=== PATIENT | female | born 1990 | race Caucasian/White ===

== ENCOUNTER 2020-04-20 13:28 | Emergency (ER) | payer OTHER ==
[2020-04-20 13:39] VITALS: RESP 18; TEMP 98.2
[2020-04-20] MEDS ORDERED: KETOROLAC 30 MG/ML 1 ML VIAL IVP STA (14:16)
[2020-04-20] MEDS ORDERED: SODIUM CHLORIDE 0.9% 1,000 ML IV STA (14:16)
--- NOTE | 2020-04-20 14:29 | ED ---
General Adult HPI - General Chief complaint: Chest Pain Stated complaint: fell, had seizure 2 days ago; chest pain Time Seen by Provider: 04/20/20 13:58 Source: patient Mode of arrival: wheelchair Limitations: no limitations - History of Present Illness Initial comments: Patient is a 29-year-old female presenting to the emergency Department with complaints of overall general weakness, nausea and vomiting x 3 days. Patient states she fell down approximately 10 stairs on Thursday with loss of consciousness for approximately 1 minute. Patient states they did go to [facility] that night and had a workup and was discharged home with diagn osis of a concussion. Patient states she returned the following day and was held overnight in observation secondary to general weakness, nausea, vomiting. Patient was then discharged yesterday and returns today for same complaint of generalized weakness, continued nausea and vomiting, intermittent dizziness. Patient is also complaining of chest and belly pain. She states she is not sure if she had her chest on one of the stairs. She denies history of heart disease. She denies shortness of breath, cough. She does admit to history of cholecystectomy, appendectomy, no other abdominal surgeries. She describes her abdominal pain as generalized and soreness, no specific area that is painful. She denies being at this time secondary to IUD. She denies taking any medications. She does admit to be a chronic marijuana user. She has no further complaints. Upon arrival to the ER, her vital signs are stable. - Related Data Previous Rx's Medication Instructions Recorded Ondansetron Odt [Zofran Odt] 4 mg PO Q8HR PRN #10 tab 04/20/20 Allergies Allergy/AdvReac Type Severity Reaction Status Date / Time No Known Allergies Allergy Verified 04/20/20 13:39 Review of Systems ROS Statement: Those systems with pertinent positive or pertinent negative responses have been documented in the HPI. ROS Other: All systems not noted in ROS Statement are negative. Past Medical History Past Medical History: No Reported History History of Any Multi-Drug Resistant Organisms: None Reported Past Surgical History: Appendectomy, Section, Cholecystectomy Additional Past Surgical History / Comment(s): Right knee surgery Past Psychological History: Anxiety Smoking Status: Never smoker Past Alcohol Use History: None Reported Past Drug Use History: Marijuana General Exam - General Exam Comments Initial Comments: GENERAL: Well-appearing, well-nourished and in no acute distress. HEAD: Atraumatic, normocephalic. No signs of basilar skull fracture. EYES: Pupils equal round and reactive to light, extraocular movements intact, sclera anicteric, conjunctiva are normal. Bruising around the right eye secondary to fall. ENT: TMs normal, nares patent, oropharynx clear without exudates. Moist mucous membranes. NECK: Normal range of motion, supple without lymphadenopathy or JVD. LUNGS: Breath sounds clear to auscultation bilaterally and equal. No wheezes rales or rhonchi. HEART: Regular rate and rhythm without murmurs, rubs or gallops. Pain with palpation of the sternum and right and left chest wall. ABDOMEN: Generalized abdominal discomfort, no specific area of pain. Soft, normoactive bowel sounds. No guarding, no rebound. No masses appreciated. : Deferred EXTREMITIES: Normal range of motion, no pitting or edema. No clubbing or cyanosis. 5 out of 5 strength in upper and lower extremities. Sensation is equal and bilateral lower and upper extremities. NEUROLOGICAL: Cranial nerves II through XII grossly intact. Normal speech, normal gait. PSYCH: Normal mood, normal affect. SKIN: Warm, Dry, normal turgor, no rashes or lesions noted. Limitations: no limitations Course Vital Signs 04/20/20 04/20/20 13:34 18:27 Temperature 98.2 F 98.2 F Pulse Rate 54 L 51 L Respiratory 18 18 Rate Blood Pressure 136/69 114/71 O2 Sat by Pulse 100 99 Oximetry EKG Findings - EKG Comments: EKG Findings:: Sinus bradycardia, incomplete RBBB, no signs of acute ischemia. Ventricular rate 53, SD interval 134, QTC 410. Medical Decision Making - Medical Decision Making Patient is a 29-year-old female presenting for generalized weakness, nausea, vomiting 3 days. Vitals are stable. EKG shows no acute changes. Lab work reveals no acute findings other than dehydration. Lactic acid is 1.2. Troponin is normal. Urine shows 2+ ketones, not . Urine tox is positive for mar ijuana. Patient received fluids, Toradol, Zofran. Patient has not vomited once during ER stay. 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 She is requesting to be admitted. I discussed with patient that her findings are consistent with a concussion and the symptoms she is having are normal for this injury. Her chest pain is most likely atypical from contusion. Patient will be discharged home with Jovanni. She is in agreement with this plan of care. Return parameters were discussed with the patient and she verbalized understanding. Case discussed with Dr. Mckeon. - Lab Data Result diagrams: 04/20/20 15:17 04/20/20 15:17 Lab Results 04/20/20 04/20/20 04/20/20 Range/Units 15:17 15:17 15:17 WBC 7.8 (3.8-10.6) k/uL RBC 4.89 (3.80-5.40) m/uL Hgb 14.5 (11.4-16.0) gm/dL Hct 43.2 (34.0-46.0) % MCV 88.4 (80.0-100.0) fL MCH 29.6 (25.0-35.0) pg MCHC 33.5 (31.0-37.0) g/dL RDW 12.3 (11.5-15.5) % Plt Count 116 L (150-450) k/uL Neutrophils % 82 % Lymphocytes % 10 % Monocytes % 6 % Eosinophils % 1 % Basophils % 0 % Neutrophils # 6.4 (1.3-7.7) k/uL Lymphocytes # 0.8 L (1.0-4.8) k/uL Monocytes # 0.5 (0-1.0) k/uL Eosinophils # 0.0 (0-0.7) k/uL Basophils # 0.0 (0-0.2) k/uL PT 11.0 (9.0-12.0) sec INR 1.1 (<1.2) APTT 19.5 L (22.0-30.0) sec Sodium (137-145) mmol/L Potassium (3.5-5.1) mmol/L Chloride (98-107) mmol/L Carbon Dioxide (22-30) mmol/L Anion Gap mmol/L BUN (7-17) mg/dL Creatinine (0.52-1.04) mg/dL Est GFR (CKD-EPI)AfAm (>60 ml/min/1.73 sqM) Est GFR (CKD-EPI)NonAf (>60 ml/min/1.73 sqM) Glucose (74-99) mg/dL Plasma Lactic Acid Stanton (0.7-2.0) mmol/L Calcium (8.4-10.2) mg/dL Total Bilirubin (0.2-1.3) mg/dL AST (14-36) U/L ALT (4-34) U/L Alkaline Phosphatase (38-126) U/L Troponin I (0.000-0.034) ng/mL Total Protein (6.3-8.2) g/dL Albumin (3.5-5.0) g/dL Urine Color Light Yellow Urine Appearance Clear (Clear) Urine pH 7.5 (5.0-8.0) Ur Specific [place] 1.007 (1.001-1.035) Urine Protein Negative (Negative) Urine Glucose (UA) Negative (Negative) Urine Ketones 2+ H (Negative) Urine Blood Negative (Negative) Urine Nitrite Negative (Negative) Urine Bilirubin Negative (Negative) Urine Urobilinogen <2.0 (<2.0) mg/dL Ur Leukocyte Esterase Negative (Negative) Urine HCG, Qual (Not Detectd) Urine Opiates Screen Not Detected (NotDetected) Ur Oxycodone Screen Not Detected (NotDetected) Urine Methadone Screen Not Detected (NotDetected) Ur Propoxyphene Screen Not Detected (NotDetected) Ur Barbiturates Screen Not Detected (NotDetected) U Tricyclic Antidepress Not Detected (NotDetected) Ur Phencyclidine Scrn Not Detected (NotDetected) Ur Amphetamines Screen Not Detected (NotDetected) U Methamphetamines Scrn Not Detected (NotDetected) U Benzodiazepines Scrn Not Detected (NotDetected) Urine Cocaine Screen Not Detected (NotDetected) U Marijuana (THC) Screen Detected H (NotDetected) 04/20/20 04/20/20 04/20/20 Range/Units 15:17 15:17 15:17 WBC (3.8-10.6) k/uL RBC (3.80-5.40) m/uL Hgb (11.4-16.0) gm/dL Hct (34.0-46.0) % MCV (80.0-100.0) fL MCH (25.0-35.0) pg MCHC (31.0-37.0) g/dL RDW (11.5-15.5) % Plt Count (150-450) k/uL Neutrophils % % Lymphocytes % % Monocytes % % Eosinophils % % Basophils % % Neutrophils # (1.3-7.7) k/uL Lymphocytes # (1.0-4.8) k/uL Monocytes # (0-1.0) k/uL Eosinophils # (0-0.7) k/uL Basophils # (0-0.2) k/uL PT (9.0-12.0) sec INR (<1.2) APTT (22.0-30.0) sec Sodium 132 L (137-145) mmol/L Potassium 3.4 L (3.5-5.1) mmol/L Chloride 99 (98-107) mmol/L Carbon Dioxide 19 L (22-30) mmol/L Anion Gap 14 mmol/L BUN 10 (7-17) mg/dL Creatinine 0.41 L (0.52-1.04) mg/dL Est GFR (CKD-EPI)AfAm >90 (>60 ml/min/1.73 sqM) Est GFR (CKD-EPI)NonAf >90 (>60 ml/min/1.73 sqM) Glucose 79 (74-99) mg/dL Plasma Lactic Acid Stanton 1.2 (0.7-2.0) mmol/L Calcium 8.5 (8.4-10.2) mg/dL Total Bilirubin 3.2 H (0.2-1.3) mg/dL AST 36 (14-36) U/L ALT 58 H (4-34) U/L Alkaline Phosphatase 67 (38-126) U/L Troponin I (0.000-0.034) ng/mL Total Protein 6.8 (6.3-8.2) g/dL Albumin 3.9 (3.5-5.0) g/dL Urine Color Urine Appearance (Clear) Urine pH (5.0-8.0) Ur Specific [place] (1.001-1.035) Urine Protein (Negative) Urine Glucose (UA) (Negative) Urine Ketones (Negative) Urine Blood (Negative) Urine Nitrite (Negative) Urine Bilirubin (Negative) Urine Urobilinogen (<2.0) mg/dL Ur Leukocyte Esterase (Negative) Urine HCG, Qual Not Detected (Not Detectd) Urine Opiates Screen (NotDetected) Ur Oxycodone Screen (NotDetected) Urine Methadone Screen (NotDetected) Ur Propoxyphene Screen (NotDetected) Ur Barbiturates Screen (NotDetected) U Tricyclic Antidepress (NotDetected) Ur Phencyclidine Scrn (NotDetected) Ur Amphetamines Screen (NotDetected) U Methamphetamines Scrn (NotDetected) U Benzodiazepines Scrn (NotDetected) Urine Cocaine Screen (NotDetected) U Marijuana (THC) Screen (NotDetected) 04/20/20 Range/Units 15:17 WBC (3.8-10.6) k/uL RBC (3.80-5.40) m/uL Hgb (11.4-16.0) gm/dL Hct (34.0-46.0) % MCV (80.0-100.0) fL MCH (25.0-35.0) pg MCHC (31.0-37.0) g/dL RDW (11.5-15.5) % Plt Count (150-450) k/uL Neutrophils % % Lymphocytes % % Monocytes % % Eosinophils % % Basophils % % Neutrophils # (1.3-7.7) k/uL Lymphocytes # (1.0-4.8) k/uL Monocytes # (0-1.0) k/uL Eosinophils # (0-0.7) k/uL Basophils # (0-0.2) k/uL PT (9.0-12.0) sec INR (<1.2) APTT (22.0-30.0) sec Sodium (137-145) mmol/L Potassium (3.5-5.1) mmol/L Chloride (98-107) mmol/L Carbon Dioxide (22-30) mmol/L Anion Gap mmol/L BUN (7-17) mg/dL Creatinine (0.52-1.04) mg/dL Est GFR (CKD-EPI)AfAm (>60 ml/min/1.73 sqM) Est GFR (CKD-EPI)NonAf (>60 ml/min/1.73 sqM) Glucose (74-99) mg/dL Plasma Lactic Acid Stanton (0.7-2.0) mmol/L Calcium (8.4-10.2) mg/dL Total Bilirubin (0.2-1.3) mg/dL AST (14-36) U/L ALT (4-34) U/L Alkaline Phosphatase (38-126) U/L Troponin I <0.012 (0.000-0.034) ng/mL Total Protein (6.3-8.2) g/dL Albumin (3.5-5.0) g/dL Urine Color Urine Appearance (Clear) Urine pH (5.0-8.0) Ur Specific [place] (1.001-1.035) Urine Protein (Negative) Urine Glucose (UA) (Negative) Urine Ketones (Negative) Urine Blood (Negative) Urine Nitrite (Negative) Urine Bilirubin (Negative) Urine Urobilinogen (<2.0) mg/dL Ur Leukocyte Esterase (Negative) Urine HCG, Qual (Not Detectd) Urine Opiates Screen (NotDetected) Ur Oxycodone Screen (NotDetected) Urine Methadone Screen (NotDetected) Ur Propoxyphene Screen (NotDetected) Ur Barbiturates Screen (NotDetected) U Tricyclic Antidepress (NotDetected) Ur Phencyclidine Scrn (NotDetected) Ur Amphetamines Screen (NotDetected) U Methamphetamines Scrn (NotDetected) U Benzodiazepines Scrn (NotDetected) Urine Cocaine Screen (NotDetected) U Marijuana (THC) Screen (NotDetected) Disposition Clinical Impression: Concussion, Nausea & vomiting, Atypical chest pain Disposition: HOME SELF-CARE Condition: Stable Instructions (If sedation given, give patient instructions): Concussion (ED) Additional Instructions: Please return to the Emergency Department if symptoms worsen or any other concerns. Follow-up with PCP as discussed. Prescriptions: Ondansetron Odt [Zofran Odt] 4 mg PO Q8HR PRN #10 tab PRN Reason: Nausea Is patient prescribed a controlled substance at d/c from ED?: No Referrals: None,Stated [Primary Care Provider] - 1-2 days Dara Jarvis MD [STAFF PHYSICIAN] - 1-2 days José Miguel Hannon MD [STAFF PHYSICIAN] - 1-2 days
[2020-04-20 15:31] LABS: Basophils % (A) 0 %; Eosinophils % (A) 1 %; HCT 43.2 % (34.0-46.0); HGB 14.5 gm/dL (11.4-16.0); Lymphocytes # (A) 0.8 k/uL (1.0-4.8); Lymphocytes % (A) 10 %; MCH 29.6 pg (25.0-35.0); MCHC 33.5 g/dL (31.0-37.0); MCV 88.4 fL (80.0-100.0); Monocytes # (A) 0.5 k/uL (0-1.0); Monocytes % (A) 6 %; Neutrophils # (A) 6.4 k/uL (1.3-7.7); Neutrophils % (A) 82 %; Platelet Count 116 k/uL (150-450); RBC 4.89 m/uL (3.80-5.40); RDW 12.3 % (11.5-15.5); WBC 7.8 k/uL (3.8-10.6)
[2020-04-20 15:35] LABS: Appearance,Urine Clear (Clear); Bilirubin,Urine Negative (Negative); Blood,Urine Negative (Negative); Color,Urine Light Yellow; Glucose,Urine (UA) Negative (Negative); Ketones,Urine 2+ (Negative); Leukocyte Esterase,Urine Negative (Negative); Nitrite,Urine Negative (Negative); PH, Urine 7.5 (5.0-8.0); Protein,Urine Negative (Negative); Specific Gravity,Urine 1.007 (1.001-1.035); Urobilinogen,Urine <2.0 mg/dL (<2.0)
[2020-04-20 15:43] LABS: ALT 58 U/L (4-34); AST 36 U/L (14-36); African American GFR (CKD) >90 (>60 ml/min/1.73 sqM); Albumin 3.9 g/dL (3.5-5.0); Alkaline Phosphatase 67 U/L (38-126); Anion Gap 14 mmol/L; Blood Urea Nitrogen 10 mg/dL (7-17); Calcium 8.5 mg/dL (8.4-10.2); Carbon Dioxide 19 mmol/L (22-30); Chloride 99 mmol/L (98-107); Glucose 79 mg/dL (74-99); Non-African American GFR(CKD) >90 (>60 ml/min/1.73 sqM); Potassium 3.4 mmol/L (3.5-5.1); Sodium 132 mmol/L (137-145); Total Bilirubin 3.2 mg/dL (0.2-1.3); Total Protein 6.8 g/dL (6.3-8.2)
[2020-04-20 15:51] LABS: Amphetamine Screen,Urine Not Detected (NotDetected); Barbiturate Screen,Urine Not Detected (NotDetected); Benzodiazepines Screen,Urine Not Detected (NotDetected); Cocaine Screen,Urine Not Detected (NotDetected); Methadone Screen, Urine Not Detected (NotDetected); Opiate Screen,Urine Not Detected (NotDetected); Oxycodone Screen, Urine Not Detected (NotDetected); Phencyclidine Screen,Urine Not Detected (NotDetected); Tricyclic Antidepressant,Urine Not Detected (NotDetected); Urn Cannabinoid Scrn Detected (NotDetected)
[2020-04-20 15:52] LABS: INR 1.1 (<1.2)
[2020-04-20 16:06] LABS: Partial Thromboplastin Time 19.5 sec (22.0-30.0)
--- NOTE | 2020-04-20 16:26 | CT ---
EXAMINATION TYPE: CT brain wo con DATE OF EXAM: 04/20/2020 COMPARISON: None HISTORY: 29-year-old female fell hitting head, dizziness, hx of seizures TECHNIQUE: Examination was done in axial plane without intravenous contrast. Coronal and sagittal r econstructions performed. CT DLP: 1066.4 mGycm Automated exposure control for dose reduction was used. FINDINGS: There is no evidence of acute intracranial hemorrhage, acute ischemic changes, mass, mass-effect, or extra-axial fluid collection. There is no effacement of cerebral sulci or basal subarachnoid cister ns. There is no hydrocephalus. There is no midline shift. Becker-white matter distinction is preserv ed. Paranasal sinuses and mastoid air cells are well pneumatized. The visualized orbits and globes are in tact. IMPRESSION: No acute intracranial abnormality seen.
--- NOTE | 2020-04-20 16:27 | XR ---
EXAMINATION TYPE: XR chest 2V DATE OF EXAM: 04/20/2020 COMPARISON: None HISTORY: 29-year-old female chest pain after fall TECHNIQUE: AP and lateral views FINDINGS: The cardiomediastinal silhouette, aorta, and pulmonary vasculature are within normal limits. Lungs an d pleural spaces are clear. IMPRESSION: No acute cardiopulmonary process.
[2020-04-20] MEDS ORDERED: ONDANSETRON 4 MG ODT STARTER PACK 2 TAB BTL PO STA (18:17)
[2020-04-20 18:29] VITALS: BP 114/71; PULSE 51
== END 2020-04-20 18:34 | disposition home or self-care (01) ==
LOC: EC 13:28
DX: S06.0X9A Concussion with loss of consciousness of unspecified duration, initial encounter (principal); R07.89 Other chest pain; R11.2 Nausea with vomiting, unspecified; S05.11XA Contusion of eyeball and orbital tissues, right eye, initial encounter; W10.9XXA Fall (on) (from) unspecified stairs and steps, initial encounter
CPT/HCPCS: 36415; 93005; 80053; 83605; 84484; 85025; 85610; 85730; 81003; 81025; 80306; 71046; 70450; 99285; 96374; 96361 ×2; J1885; S0119

== ENCOUNTER 2020-07-17 15:56 | Inpatient (IN) | payer OTHER ==
[2020-07-17] MEDS ORDERED: ONDANSETRON 4 MG/2 ML VIAL IVP STA (16:33)
[2020-07-17] MEDS ORDERED: SODIUM CHLORIDE 0.9% 500 ML 500 ML IV STA (16:33)
[2020-07-17] MEDS ORDERED: PANTOPRAZOLE 40 MG/10 ML VIAL IVP STA (16:33)
[2020-07-17] MEDS ORDERED: SODIUM CHLORIDE 0.9% 1,000 ML IV STA ×3 (16:33→18:11)
[2020-07-17] MEDS ORDERED: MORPHINE SULFATE 4 MG/ML SYRINGE IV STA (16:33)
--- NOTE | 2020-07-17 16:56 | ED ---
Nausea/Vomiting/Diarrhea HPI - General Chief complaint: Nausea/Vomiting/Diarrhea Stated complaint: vomiting Time Seen by Provider: 07/17/20 16:02 Source: patient, RN notes reviewed, old records reviewed Mode of arrival: wheelchair Limitations: no limitations - History of Present Illness Initial comments: This is a 29-year-old female DF for evaluation of significant nausea vomiting after sexual intercourse today. Patient is having some abdominal pain states she has ovarian cyst patient also has some severe nausea and vomiting persistent nausea vomiting with recent history of gallbladder surgery 2 months ago done here at this hospital. No fevers. Otherwise patient been feeling well unable to tolerate anything orally since this event happened MD complaint: nausea, vomiting, abdominal pain -: hour(s) Description of Vomiting: watery, bilious Location: diffuse Radiation: none Severity: severe Severity scale (1-10): 8 Quality: cramping, aching Consistency: constant Improves with: none Worsens with: none, eating Context: history of abdominal surgery Associated Symptoms: myalgias, loss of appetite, nausea/vomiting, weakness - Related Data Home Medications Medication Instructions Recorded Confirmed No Known Home Medications 07/17/20 07/17/20 Allergies Allergy/AdvReac Type Severity Reaction Status Date / Time No Known Allergies Allergy Verified 07/17/20 12:54 Review of Systems ROS Statement: Those systems with pertinent positive or pertinent negative responses have been documented in the HPI. ROS Other: All systems not noted in ROS Statement are negative. Past Medical History Past Medical History: Osteoarthritis (OA) History of Any Multi-Drug Resistant Organisms: None Reported Past Surgical History: Appendectomy, Section, Cholecystectomy, Orthopedic Surgery Additional Past Surgical History / Comment(s): Right knee surgery. Past Anesthesia/Blood Transfusion Reactions: No Reported Reaction Past Psychological History: No Psychological Hx Reported Smoking Status: Former smoker Past Alcohol Use History: Occasional Past Drug Use History: Marijuana - Past Family History Mother Family Medical History: No Reported History General Exam Limitations: no limitations General appearance: alert, in no apparent distress Head exam: Present: atraumatic, normocephalic, normal inspection Eye exam: Present: normal appearance, PERRL, EOMI. Absent: scleral icterus, conjunctival injection, periorbital swelling ENT exam: Present: normal exam, mucous membranes moist Neck exam: Present: normal inspection. Absent: tenderness, meningismus, lymphadenopathy Respiratory exam: Present: normal lung sounds bilaterally. Absent: respiratory distress, wheezes, rales, rhonchi, stridor Cardiovascular Exam: Present: regular rate, normal rhythm, normal heart sounds. Absent: systolic murmur, diastolic murmur, rubs, gallop, clicks GI/Abdominal exam: Present: soft, normal bowel sounds. Absent: distended, tenderness, guarding, rebound, rigid Extremities exam: Present: normal inspection, full ROM, normal capillary refill. Absent: tenderness, pedal edema, joint swelling, calf tenderness Back exam: Present: normal inspection Neurological exam: Present: alert, oriented X3, CN II-XII intact Psychiatric exam: Present: normal affect, normal mood Skin exam: Present: warm, dry, intact, normal color. Absent: rash Course Vital Signs 07/17/20 07/17/20 15:57 18:12 Temperature 98.2 F Pulse Rate 52 L 47 L Respiratory 18 16 Rate Blood Pressure 135/53 135/95 O2 Sat by Pulse 99 99 Oximetry Medical Decision Making - Medical Decision Making 29 female to the ER with nonspecific nausea vomiting likely gastroenteritis patient is able tolerate on take currently and can be discharged - Lab Data Result diagrams: 07/17/20 16:37 07/17/20 16:37 Lab Results 07/17/20 07/17/20 07/17/20 Range/Units 16:37 16:37 16:37 WBC 14.9 H (3.8-10.6) k/uL RBC 5.09 (3.80-5.40) m/uL Hgb 15.3 (11.4-16.0) gm/dL Hct 46.0 (34.0-46.0) % MCV 90.3 (80.0-100.0) fL MCH 30.0 (25.0-35.0) pg MCHC 33.2 (31.0-37.0) g/dL RDW 13.0 (11.5-15.5) % Plt Count 147 L (150-450) k/uL Neutrophils % 95 % Lymphocytes % 3 % Monocytes % 2 % Eosinophils % 0 % Basophils % 0 % Neutrophils # 14.1 H (1.3-7.7) k/uL Lymphocytes # 0.4 L (1.0-4.8) k/uL Monocytes # 0.3 (0-1.0) k/uL Eosinophils # 0.0 (0-0.7) k/uL Basophils # 0.0 (0-0.2) k/uL Sodium 135 L (137-145) mmol/L Potassium 3.9 (3.5-5.1) mmol/L Chloride 103 (98-107) mmol/L Carbon Dioxide 19 L (22-30) mmol/L Anion Gap 13 mmol/L BUN 20 H (7-17) mg/dL Creatinine 0.54 (0.52-1.04) mg/dL Est GFR (CKD-EPI)AfAm >90 (>60 ml/min/1.73 sqM) Est GFR (CKD-EPI)NonAf >90 (>60 ml/min/1.73 sqM) Glucose 124 H (74-99) mg/dL Plasma Lactic Acid Stanton (0.7-2.0) mmol/L Calcium 9.7 (8.4-10.2) mg/dL Total Bilirubin 5.0 H (0.2-1.3) mg/dL AST 24 (14-36) U/L ALT 19 (4-34) U/L Alkaline Phosphatase 91 (38-126) U/L Total Protein 7.7 (6.3-8.2) g/dL Albumin 4.8 (3.5-5.0) g/dL Amylase 40 (30-110) U/L Lipase 15 L (23-300) U/L Urine Color Yellow Urine Appearance Clear (Clear) Urine pH 7.0 (5.0-8.0) Ur Specific [place] 1.032 (1.001-1.035) Urine Protein 1+ H (Negative) Urine Glucose (UA) Negative (Negative) Urine Ketones 4+ H (Negative) Urine Blood Small H (Negative) Urine Nitrite Negative (Negative) Urine Bilirubin Negative (Negative) Urine Urobilinogen <2.0 (<2.0) mg/dL Ur Leukocyte Esterase Negative (Negative) Urine RBC 6 H (0-5) /hpf Urine WBC 2 (0-5) /hpf Ur Squamous Epith Cells 4 (0-4) /hpf Hyaline Casts 1 (0-2) /lpf Urine Mucus Few H (None) /hpf Urine HCG, Qual (Not Detectd) Serum Alcohol <10 mg/dL 07/17/20 07/17/20 Range/Units 16:37 16:37 WBC (3.8-10.6) k/uL RBC (3.80-5.40) m/uL Hgb (11.4-16.0) gm/dL Hct (34.0-46.0) % MCV (80.0-100.0) fL MCH (25.0-35.0) pg MCHC (31.0-37.0) g/dL RDW (11.5-15.5) % Plt Count (150-450) k/uL Neutrophils % % Lymphocytes % % Monocytes % % Eosinophils % % Basophils % % Neutrophils # (1.3-7.7) k/uL Lymphocytes # (1.0-4.8) k/uL Monocytes # (0-1.0) k/uL Eosinophils # (0-0.7) k/uL Basophils # (0-0.2) k/uL Sodium (137-145) mmol/L Potassium (3.5-5.1) mmol/L Chloride (98-107) mmol/L Carbon Dioxide (22-30) mmol/L Anion Gap mmol/L BUN (7-17) mg/dL Creatinine (0.52-1.04) mg/dL Est GFR (CKD-EPI)AfAm (>60 ml/min/1.73 sqM) Est GFR (CKD-EPI)NonAf (>60 ml/min/1.73 sqM) Glucose (74-99) mg/dL Plasma Lactic Acid Stanton 2.8 H* (0.7-2.0) mmol/L Calcium (8.4-10.2) mg/dL Total Bilirubin (0.2-1.3) mg/dL AST (14-36) U/L ALT (4-34) U/L Alkaline Phosphatase (38-126) U/L Total Protein (6.3-8.2) g/dL Albumin (3.5-5.0) g/dL Amylase (30-110) U/L Lipase (23-300) U/L Urine Color Urine Appearance (Clear) Urine pH (5.0-8.0) Ur Specific [place] (1.001-1.035) Urine Protein (Negative) Urine Glucose (UA) (Negative) Urine Ketones (Negative) Urine Blood (Negative) Urine Nitrite (Negative) Urine Bilirubin (Negative) Urine Urobilinogen (<2.0) mg/dL Ur Leukocyte Esterase (Negative) Urine RBC (0-5) /hpf Urine WBC (0-5) /hpf Ur Squamous Epith Cells (0-4) /hpf Hyaline Casts (0-2) /lpf Urine Mucus (None) /hpf Urine HCG, Qual Not Detected (Not Detectd) Serum Alcohol mg/dL - Radiology Data Radiology results: report reviewed (CT abdomen and pelvis is negative for significant acute disease), image reviewed Disposition Clinical Impression: Dehydration, Gastroenteritis, Nausea & vomiting Disposition: HOME SELF-CARE Instructions (If sedation given, give patient instructions): Acute Nausea and Vomiting (ED) Is patient prescribed a controlled substance at d/c from ED?: No Referrals: Dara Jarvis MD [Primary Care Provider] - 1-2 days
[2020-07-17 17:15] LABS: Basophils % (A) 0 %; Eosinophils % (A) 0 %; HGB 15.3 gm/dL (11.4-16.0); Lymphocytes # (A) 0.4 k/uL (1.0-4.8); Lymphocytes % (A) 3 %; MCHC 33.2 g/dL (31.0-37.0); MCV 90.3 fL (80.0-100.0); Mean Platelet Volume 11.2; Monocytes # (A) 0.3 k/uL (0-1.0); Monocytes % (A) 2 %; Neutrophils # (A) 14.1 k/uL (1.3-7.7); Neutrophils % (A) 95 %; Platelet Count 147 k/uL (150-450); RBC 5.09 m/uL (3.80-5.40); WBC 14.9 k/uL (3.8-10.6)
[2020-07-17 17:22] LABS: Appearance,Urine Clear (Clear); Bilirubin,Urine Negative (Negative); Blood,Urine Small (Negative); Color,Urine Yellow; Glucose,Urine (UA) Negative (Negative); Hyaline Casts,Urine 1 /lpf (0-2); Ketones,Urine 4+ (Negative); Leukocyte Esterase,Urine Negative (Negative); Mucus,Urine Few /hpf; Nitrite,Urine Negative (Negative); Protein,Urine 1+ (Negative); RBC,Urine 6 /hpf (0-5); Specific Gravity,Urine 1.032 (1.001-1.035); Squamous Epithelial Cell,Urine 4 /hpf (0-4); Urobilinogen,Urine <2.0 mg/dL (<2.0); WBC,Urine 2 /hpf (0-5)
[2020-07-17 17:48] LABS: ALT 19 U/L (4-34); AST 24 U/L (14-36); African American GFR (CKD) >90 (>60 ml/min/1.73 sqM); Albumin 4.8 g/dL (3.5-5.0); Alcohol <10 mg/dL; Alkaline Phosphatase 91 U/L (38-126); Amylase 40 U/L (30-110); Anion Gap 13 mmol/L; Blood Urea Nitrogen 20 mg/dL (7-17); Calcium 9.7 mg/dL (8.4-10.2); Carbon Dioxide 19 mmol/L (22-30); Chloride 103 mmol/L (98-107); Glucose 124 mg/dL (74-99); Non-African American GFR(CKD) >90 (>60 ml/min/1.73 sqM); Potassium 3.9 mmol/L (3.5-5.1); Sodium 135 mmol/L (137-145); Total Protein 7.7 g/dL (6.3-8.2)
[2020-07-17] MEDS ORDERED: LORazepam 2 MG/ML INJ IV STA (18:10)
--- NOTE | 2020-07-17 18:13 | CT ---
EXAMINATION TYPE: CT abdomen pelvis w con DATE OF EXAM: 07/17/2020 COMPARISON: None HISTORY: abdominal pain, nausea, vomiting CT DLP: 541.9 mGycm CONTRAST: CT scan of the abdomen and pelvis is performed without Oral Contrast and with IV Contrast, patient in jected with 100 mL of Isovue 300. FINDINGS: LUNG BASES-: No visible nodule. No infiltrate. LIVER/GB: The gallbladder is surgically absent. No space occupying hepatic lesion. Biliary tree is of normal caliber. PANCREAS: No inflammation. No distinct mass. SPLEEN: No splenic enlargement. No lesion seen. ADRENALS: No nodule. No thickening. KIDNEYS/BLADDER: No hydronephrosis. No nephrolithiasis. No distinct renal mass. Urinary bladder g rossly unremarkable. BOWEL: There is wall thickening involving the small bowel as well as the colon. Findings are felt to reflect enterocolitis. Small amount of free fluid in the cul-de-sac. No free air. Appendectomy change s noted. GENITAL ORGANS: IUD is in place. LYMPH NODES: No greater than 1cm abdominal or pelvic lymph nodes are appreciated. AORTA: No significant abnormality. OSSEOUS STRUCTURES: No significant abnormality is seen. OTHER: No significant additional abnormality is seen. IMPRESSION: 1. There is wall thickening involving the small bowel as well as the colon. Findings are felt to refl ect enterocolitis.
[2020-07-17] MEDS ORDERED: ONDANSETRON 4 MG ODT STARTER PACK 2 TAB BTL PO STA (19:20)
[2020-07-17] MEDS ORDERED: SODIUM CHLORIDE 0.9% 1,000 ML IV ONE (19:24)
[2020-07-17] MEDS ORDERED: METOCLOPRAMIDE 5 MG/ML 2 ML VIAL IVP STA (19:24)
[2020-07-17] MEDS ORDERED: DICYCLOMINE 10 MG/ML 2 ML AMP IM STA (19:24)
[2020-07-17] MEDS ORDERED: ONDANSETRON 4 MG/2 ML VIAL IVP PRN (19:24)
[2020-07-17] MEDS ORDERED: diphenhydrAMINE 50 MG/ML 1 ML VIAL IVP STA (19:24)
[2020-07-17] MEDS ORDERED: diphenhydrAMINE 50 MG/ML 1 ML VIAL IVP PRN (19:24)
--- NOTE | 2020-07-17 19:24 | ED ---
Medical Decision Making - Medical Decision Making 29 female DF for evaluation and attempt to leave emergency room patient is consistently vomiting not feeling well will be admitted for observation symptom management - Lab Data Result diagrams: 07/17/20 16:37 07/17/20 16:37 Lab Results 07/17/20 07/17/20 07/17/20 Range/Units 16:37 16:37 16:37 WBC 14.9 H (3.8-10.6) k/uL RBC 5.09 (3.80-5.40) m/uL Hgb 15.3 (11.4-16.0) gm/dL Hct 46.0 (34.0-46.0) % MCV 90.3 (80.0-100.0) fL MCH 30.0 (25.0-35.0) pg MCHC 33.2 (31.0-37.0) g/dL RDW 13.0 (11.5-15.5) % Plt Count 147 L (150-450) k/uL Neutrophils % 95 % Lymphocytes % 3 % Monocytes % 2 % Eosinophils % 0 % Basophils % 0 % Neutrophils # 14.1 H (1.3-7.7) k/uL Lymphocytes # 0.4 L (1.0-4.8) k/uL Monocytes # 0.3 (0-1.0) k/uL Eosinophils # 0.0 (0-0.7) k/uL Basophils # 0.0 (0-0.2) k/uL Sodium 135 L (137-145) mmol/L Potassium 3.9 (3.5-5.1) mmol/L Chloride 103 (98-107) mmol/L Carbon Dioxide 19 L (22-30) mmol/L Anion Gap 13 mmol/L BUN 20 H (7-17) mg/dL Creatinine 0.54 (0.52-1.04) mg/dL Est GFR (CKD-EPI)AfAm >90 (>60 ml/min/1.73 sqM) Est GFR (CKD-EPI)NonAf >90 (>60 ml/min/1.73 sqM) Glucose 124 H (74-99) mg/dL Plasma Lactic Acid Stanton (0.7-2.0) mmol/L Calcium 9.7 (8.4-10.2) mg/dL Total Bilirubin 5.0 H (0.2-1.3) mg/dL AST 24 (14-36) U/L ALT 19 (4-34) U/L Alkaline Phosphatase 91 (38-126) U/L Total Protein 7.7 (6.3-8.2) g/dL Albumin 4.8 (3.5-5.0) g/dL Amylase 40 (30-110) U/L Lipase 15 L (23-300) U/L Urine Color Yellow Urine Appearance Clear (Clear) Urine pH 7.0 (5.0-8.0) Ur Specific [place] 1.032 (1.001-1.035) Urine Protein 1+ H (Negative) Urine Glucose (UA) Negative (Negative) Urine Ketones 4+ H (Negative) Urine Blood Small H (Negative) Urine Nitrite Negative (Negative) Urine Bilirubin Negative (Negative) Urine Urobilinogen <2.0 (<2.0) mg/dL Ur Leukocyte Esterase Negative (Negative) Urine RBC 6 H (0-5) /hpf Urine WBC 2 (0-5) /hpf Ur Squamous Epith Cells 4 (0-4) /hpf Hyaline Casts 1 (0-2) /lpf Urine Mucus Few H (None) /hpf Urine HCG, Qual (Not Detectd) Serum Alcohol <10 mg/dL 07/17/20 07/17/20 Range/Units 16:37 16:37 WBC (3.8-10.6) k/uL RBC (3.80-5.40) m/uL Hgb (11.4-16.0) gm/dL Hct (34.0-46.0) % MCV (80.0-100.0) fL MCH (25.0-35.0) pg MCHC (31.0-37.0) g/dL RDW (11.5-15.5) % Plt Count (150-450) k/uL Neutrophils % % Lymphocytes % % Monocytes % % Eosinophils % % Basophils % % Neutrophils # (1.3-7.7) k/uL Lymphocytes # (1.0-4.8) k/uL Monocytes # (0-1.0) k/uL Eosinophils # (0-0.7) k/uL Basophils # (0-0.2) k/uL Sodium (137-145) mmol/L Potassium (3.5-5.1) mmol/L Chloride (98-107) mmol/L Carbon Dioxide (22-30) mmol/L Anion Gap mmol/L BUN (7-17) mg/dL Creatinine (0.52-1.04) mg/dL Est GFR (CKD-EPI)AfAm (>60 ml/min/1.73 sqM) Est GFR (CKD-EPI)NonAf (>60 ml/min/1.73 sqM) Glucose (74-99) mg/dL Plasma Lactic Acid Stanton 2.8 H* (0.7-2.0) mmol/L Calcium (8.4-10.2) mg/dL Total Bilirubin (0.2-1.3) mg/dL AST (14-36) U/L ALT (4-34) U/L Alkaline Phosphatase (38-126) U/L Total Protein (6.3-8.2) g/dL Albumin (3.5-5.0) g/dL Amylase (30-110) U/L Lipase (23-300) U/L Urine Color Urine Appearance (Clear) Urine pH (5.0-8.0) Ur Specific [place] (1.001-1.035) Urine Protein (Negative) Urine Glucose (UA) (Negative) Urine Ketones (Negative) Urine Blood (Negative) Urine Nitrite (Negative) Urine Bilirubin (Negative) Urine Urobilinogen (<2.0) mg/dL Ur Leukocyte Esterase (Negative) Urine RBC (0-5) /hpf Urine WBC (0-5) /hpf Ur Squamous Epith Cells (0-4) /hpf Hyaline Casts (0-2) /lpf Urine Mucus (None) /hpf Urine HCG, Qual Not Detected (Not Detectd) Serum Alcohol mg/dL Disposition Clinical Impression: Dehydration, Gastroenteritis, Nausea & vomiting Disposition: ADMITTED IP TO THIS HOSP Condition: Good Instructions (If sedation given, give patient instructions): Acute Nausea and Vomiting (ED) Is patient prescribed a controlled substance at d/c from ED?: No Referrals: Dara Jarvis MD [Primary Care Provider] - 1-2 days Procedures - [place] Protocol (Time Out) Nurse: Daniel Gonzalez
[2020-07-17] MEDS: METOCLOPRAMIDE 5 MG/ML 2 ML VIAL IVP SCH (19:34)
[2020-07-17] MEDS ORDERED: ACETAMINOPHEN TAB 325 MG TAB PO PRN (22:55)
[2020-07-17] MEDS ORDERED: LEVOFLOXACIN 500MG-D5W PMX 500 MG in DEXTROSE/WATER 1 100ML.BAG IVPB SCH (23:00)
--- NOTE | 2020-07-17 23:12 | P.HPIM ---
History of Present Illness H&P Date: 07/17/20 Chief Complaint: abd pain , nausea and vomiting 29 year old female with Gilbert syndrome patient comes in with abd pain of about 12 hours duration , started suddenly around 3 am , she was at her baseline status of health prior to that, denies any recent travel or unsanitary food or drink, denies any sick contacts, denies any other family members with similar symptoms she reports that about 1 month ago she had cholecystectomy. currently she reports a 7/10 lower abd pain, worse with movement, radiates to the hole abdomen , mainly lower abd , denies urinary symptoms or hematuria, denies back pain. but does report associated nausea and vomting bilious in color non bloody. and frequent watery diarrhea with some occasional specs of blood today. denies fever, but having chills. denies any vaginal discharge, patient is sexually active with one partner, has IUD. in the ED she was found to have elevated WBC and lactic acidosis , elevated bilirubin (no baseline, but history of gilbert syndrome) , CT of the abdomen showed colitis Review of Systems Pertinent positives as noted in HPI. All other systems were reviewed and are neg ative Past Medical History Past Medical History: Osteoarthritis (OA) Additional Past Medical History / Comment(s): [place] Syndrome History of Any Multi-Drug Resistant Organisms: None Reported Past Surgical History: Appendectomy, Section, Cholecystectomy, Orthopedic Surgery Additional Past Surgical History / Comment(s): Right knee surgery. Past Anesthesia/Blood Transfusion Reactions: No Reported Reaction Past Psychological History: No Psychological Hx Reported Smoking Status: Former smoker Past Alcohol Use History: Occasional Past Drug Use History: Marijuana - Past Family History Mother Family Medical History: No Reported History Medications and Allergies Home Medications Medication Instructions Recorded Confirmed Type No Known Home Medications 07/17/20 07/17/20 History Allergies Allergy/AdvReac Type Severity Reaction Status Date / Time No Known Allergies Allergy Verified 07/17/20 12:54 Physical Exam Vitals: Vital Signs Temp Pulse Pulse Resp BP BP Pulse Ox 07/17/20 20:39 98.1 F 52 L 18 111/63 98 07/17/20 19:37 67 16 136/80 99 07/17/20 18:12 47 L 16 135/95 99 07/17/20 15:57 98.2 F 52 L 18 135/53 99 Intake and Output 07/17/20 07/17/20 07/17/20 06:59 14:59 22:59 Other: Weight 52.163 kg Constitutional: No acute distress, conversant, pleasant Eyes: Anicteric sclerae, moist conjunctiva, Pupils equal round reactive to light ENMT: NC/AT Oropharynx clear, no erythema, or exudates Neck: Supple, FROM, no masses, or JVD No carotid bruits No thyromegaly Lungs: Clear to auscultation Clear to percussion Normal respiratory effort, no accessory muscle use Cardiovascular: Heart regular in rate and rhythm, No murmurs, gallops, or rubs No peripheral edema Abdominal: Soft diffuse to tenderness to palpation mainly lower abd, with rebound tenderness over bilateral quadrants, left>right , no guarding, or rigidity Abdomen moving with respiration sluggish bowel sounds No hepatomegaly, No splenomegaly No palpable mass No abdominal wall hernia noted Skin: Normal temperature, tone, texture, turgor No induration No subcutaneous nodules No rash, lesions No ulcers Extremities: No digital cyanosis No clubbing Pedal pulses intact and symmetrical Radial pulses intact and symmetrical No calf tenderness Psychiatric: Alert and oriented to person, place and time Appropriate affect fair judgement Neuro Muscles Strength 4/5 in all 4 extremities Sensation to light touch grossly present throughout Cranial nerves II-XII grossly intact No focal sensory deficits Lymphatics: no palpable cervical or supraclavicular , or inguinal lymph nodes Results CBC & Chem 7: 07/17/20 16:37 07/17/20 16:37 Labs: Abnormal Lab Results - Last 24 Hours (Table) 07/17/20 07/17/20 07/17/20 Range/Units 16:37 16:37 16:37 WBC 14.9 H (3.8-10.6) k/uL Plt Count 147 L (150-450) k/uL Neutrophils # 14.1 H (1.3-7.7) k/uL Lymphocytes # 0.4 L (1.0-4.8) k/uL Sodium 135 L (137-145) mmol/L Carbon Dioxide 19 L (22-30) mmol/L BUN 20 H (7-17) mg/dL Glucose 124 H (74-99) mg/dL Plasma Lactic Acid Stanton (0.7-2.0) mmol/L Total Bilirubin 5.0 H (0.2-1.3) mg/dL Lipase 15 L (23-300) U/L Urine Protein 1+ H (Negative) Urine Ketones 4+ H (Negative) Urine Blood Small H (Negative) Urine RBC 6 H (0-5) /hpf Urine Mucus Few H (None) /hpf 07/17/20 Range/Units 16:37 WBC (3.8-10.6) k/uL Plt Count (150-450) k/uL Neutrophils # (1.3-7.7) k/uL Lymphocytes # (1.0-4.8) k/uL Sodium (137-145) mmol/L Carbon Dioxide (22-30) mmol/L BUN (7-17) mg/dL Glucose (74-99) mg/dL Plasma Lactic Acid Stanton 2.8 H* (0.7-2.0) mmol/L Total Bilirubin (0.2-1.3) mg/dL Lipase (23-300) U/L Urine Protein (Negative) Urine Ketones (Negative) Urine Blood (Negative) Urine RBC (0-5) /hpf Urine Mucus (None) /hpf Assessment and Plan Assessment: acute colitis refractory nausea and vomiting lactic acidosis follow up culture check C diff check Covid 19 check inflammatory markers for prognostic evaluation of possible covid tylenol for fever empiric antibiotics with levoflox and flagyl IVF hydraiton with normal saline gen surg consult pain control with opioids Nothing by mouth chronic conditions [place] syndrome with elevated bilirubin CODE STATUS: Full code DVT prophylaxis: Heparin subcu 3 times a day Discussed with: Patient, ER, RN Anticipated length of stay more than [address]: Home A total of 75 minutes was spent on the care of this complex patient more than 50% of the time was spent in counseling and care coordination.
[2020-07-17] MEDS: HEPARIN SODIUM,PORCINE 5,000 UNIT/ML 1 ML VIAL SQ SCH (23:19)
[2020-07-17 23:45] LABS: C Reactive Protein 12.8 mg/L (<10.0)
[2020-07-17 23:53] LABS: D-Dimer 0.48 mg/L FEU (<0.60); Prothrombin Time 10.4 sec (9.0-12.0)
[2020-07-18 00:10] LABS: Partial Thromboplastin Time 19.8 sec (22.0-30.0)
[2020-07-18] MEDS: metroNIDAZOLE-NS PMX 500 MG in SALINE 1 100ML.BAG IVPB SCH ×3 (00:33→17:13)
[2020-07-18] MEDS: METOCLOPRAMIDE 5 MG/ML 2 ML VIAL IVP SCH ×3 (05:34→17:13)
[2020-07-18] MEDS: HEPARIN SODIUM,PORCINE 5,000 UNIT/ML 1 ML VIAL SQ SCH ×2 (07:36→17:12)
[2020-07-18] MEDS ORDERED: PANTOPRAZOLE 40 MG/10 ML VIAL IVP SCH (09:00)
--- NOTE | 2020-07-18 11:32 | P.GSCN ---
History of Present Illness Consult date: 07/18/20 History of present illness: CHIEF COMPLAINT: Abdominal pain with nausea and vomiting HISTORY OF PRESENT ILLNESS: This is a 29-year-old female with a known history of Gilbert's syndrome, cholecystectomy about 1 month ago and appendectomy. Patient reports around 3 AM she started having profuse vomiting and diarrhea and left- sided abdominal pain. Patient denies any recent traveling or eating on sedentary fluid or drink. She denies any sick contacts. She does reports a grandmother has a history of inflammatory bowel disease. She denies any fever, chills or sweats. This morning she reports that her pain has improved. Surgical consult was placed regarding abdominal pain. Patient was seen and examined with Dr. Whitaker PAST MEDICAL HISTORY: See list. PAST SURGICAL HISTORY: See list. MEDICATIONS: See list. ALLERGIES: See list. SOCIAL HISTORY: No illicit drug use. REVIEW OF SYSTEMS: CONSTITUTIONAL: Denies fever or chills. HEENT: Denies blurred vision, vision changes, or eye pain. Denies hemoptysis CARDIOVASCULAR: Denies chest pain or pressure. RESPIRATORY: No shortness of breath. GASTROINTESTINAL: See HPI for pertinent findings HEMATOLOGIC: Denies bleeding disorders. GENITOURINARY: Denies any blood in urine or increased urinary frequency. SKIN: Denies pruitis. Denies rash. PHYSICAL EXAM: VITAL SIGNS: Reviewed GENERAL: Well-developed in no acute distress. HEENT: No sclera icterus. Extraocular movements grossly intact. Moist buccal mucosa. Head is atraumatic, normocephalic. No nasal drainage. ABDOMEN: Soft. Nondistended. Nontender. NEUROLOGIC: Alert and oriented. Cranial nerves II through XII grossly intact. LABORATORY DATA: WBC 14.9 hemoglobin 15.3 lactic acid 2.8 down to 1.3 total bilirubin 5.0 IMAGING: Computed tomography scan per radiology there is wall thickening involving the small bowel as well as colon. Findings are felt to reflect enterocolitis ASSESSMENT: 1. Abdominal pain with nausea and vomiting secondary to enterocolitis PLAN: -Start patient on a clear liquid diet -Continue IV fluids -Continue IV antibiotics, Levaquin and Flagyl -Continue GI and DVT prophylaxis Thank you for this consultation. We will continue to follow along during hospitalization Physician Telegraphic Typewriter Operator note has been reviewed by physician. Signing provider agrees with the documented findings, assessment, and plan of care. Past Medical History Past Medical History: Osteoarthritis (OA) Additional Past Medical History / Comment(s): [place] Syndrome History of Any Multi-Drug Resistant Organisms: None Reported Past Surgical History: Appendectomy, Section, Cholecystectomy, Orthopedic Surgery Additional Past Surgical History / Comment(s): Right knee surgery. Past Anesthesia/Blood Transfusion Reactions: No Reported Reaction Past Psychological History: No Psychological Hx Reported Smoking Status: Former smoker Past Alcohol Use History: Occasional Past Drug Use History: Marijuana - Past Family History Mother Family Medical History: No Reported History Medications and Allergies Home Medications Medication Instructions Recorded Confirmed Type No Known Home Medications 07/17/20 07/17/20 History Allergies Allergy/AdvReac Type Severity Reaction Status Date / Time No Known Allergies Allergy Verified 07/17/20 12:54 Surgical - Exam Vital Signs Temp Pulse Resp BP Pulse Ox 98.2 F 52 L 18 135/53 99 07/17/20 15:57 07/17/20 15:57 07/17/20 15:57 07/17/20 15:57 07/17/20 15:57 Results - Labs 07/17/20 16:37 07/17/20 16:37 Abnormal Lab Results - Last 24 Hours (Table) 07/17/20 07/17/20 07/17/20 Range/Units 16:37 16:37 16:37 WBC 14.9 H (3.8-10.6) k/uL Plt Count 147 L (150-450) k/uL Neutrophils # 14.1 H (1.3-7.7) k/uL Lymphocytes # 0.4 L (1.0-4.8) k/uL APTT (22.0-30.0) sec Sodium 135 L (137-145) mmol/L Carbon Dioxide 19 L (22-30) mmol/L BUN 20 H (7-17) mg/dL Glucose 124 H (74-99) mg/dL Plasma Lactic Acid [place] (0.7-2.0) mmol/L Total Bilirubin 5.0 H (0.2-1.3) mg/dL C-Reactive Protein (<10.0) mg/L Lipase 15 L (23-300) U/L Procalcitonin (0.02-0.09) ng/mL Urine Protein 1+ H (Negative) Urine Ketones 4+ H (Negative) Urine Blood Small H (Negative) Urine RBC 6 H (0-5) /hpf Urine Mucus Few H (None) /hpf 07/17/20 07/17/20 07/17/20 Range/Units 16:37 20:56 23:10 WBC (3.8-10.6) k/uL Plt Count (150-450) k/uL Neutrophils # (1.3-7.7) k/uL Lymphocytes # (1.0-4.8) k/uL APTT 19.8 L (22.0-30.0) sec Sodium (137-145) mmol/L Carbon Dioxide (22-30) mmol/L BUN (7-17) mg/dL Glucose (74-99) mg/dL Plasma Lactic Acid Stanton 2.8 H* 2.3 H* (0.7-2.0) mmol/L Total Bilirubin (0.2-1.3) mg/dL C-Reactive Protein (<10.0) mg/L Lipase (23-300) U/L Procalcitonin (0.02-0.09) ng/mL Urine Protein (Negative) Urine Ketones (Negative) Urine Blood (Negative) Urine RBC (0-5) /hpf Urine Mucus (None) /hpf 07/17/20 07/17/20 Range/Units 23:10 23:10 WBC (3.8-10.6) k/uL Plt Count (150-450) k/uL Neutrophils # (1.3-7.7) k/uL Lymphocytes # (1.0-4.8) k/uL APTT (22.0-30.0) sec Sodium (137-145) mmol/L Carbon Dioxide (22-30) mmol/L BUN (7-17) mg/dL Glucose (74-99) mg/dL Plasma Lactic Acid [place] (0.7-2.0) mmol/L Total Bilirubin (0.2-1.3) mg/dL C-Reactive Protein 12.8 H (<10.0) mg/L Lipase (23-300) U/L Procalcitonin 0.12 H (0.02-0.09) ng/mL Urine Protein (Negative) Urine Ketones (Negative) Urine Blood (Negative) Urine RBC (0-5) /hpf Urine Mucus (None) /hpf Diabetes panel 07/17/20 Range/Units 16:37 Sodium 135 L (137-145) mmol/L Potassium 3.9 (3.5-5.1) mmol/L Chloride 103 (98-107) mmol/L Carbon Dioxide 19 L (22-30) mmol/L BUN 20 H (7-17) mg/dL Creatinine 0.54 (0.52-1.04) mg/dL Glucose 124 H (74-99) mg/dL Calcium 9.7 (8.4-10.2) mg/dL AST 24 (14-36) U/L ALT 19 (4-34) U/L Alkaline Phosphatase 91 (38-126) U/L Total Protein 7.7 (6.3-8.2) g/dL Albumin 4.8 (3.5-5.0) g/dL Calcium panel 07/17/20 Range/Units 16:37 Calcium 9.7 (8.4-10.2) mg/dL Albumin 4.8 (3.5-5.0) g/dL Pituitary panel 07/17/20 Range/Units 16:37 Sodium 135 L (137-145) mmol/L Potassium 3.9 (3.5-5.1) mmol/L Chloride 103 (98-107) mmol/L Carbon Dioxide 19 L (22-30) mmol/L BUN 20 H (7-17) mg/dL Creatinine 0.54 (0.52-1.04) mg/dL Glucose 124 H (74-99) mg/dL Calcium 9.7 (8.4-10.2) mg/dL Adrenal panel 07/17/20 Range/Units 16:37 Sodium 135 L (137-145) mmol/L Potassium 3.9 (3.5-5.1) mmol/L Chloride 103 (98-107) mmol/L Carbon Dioxide 19 L (22-30) mmol/L BUN 20 H (7-17) mg/dL Creatinine 0.54 (0.52-1.04) mg/dL Glucose 124 H (74-99) mg/dL Calcium 9.7 (8.4-10.2) mg/dL Total Bilirubin 5.0 H (0.2-1.3) mg/dL AST 24 (14-36) U/L ALT 19 (4-34) U/L Alkaline Phosphatase 91 (38-126) U/L Total Protein 7.7 (6.3-8.2) g/dL Albumin 4.8 (3.5-5.0) g/dL
[2020-07-18 11:48] VITALS: BP 93/57; PULSE 45; RESP 16; TEMP 98.5
[2020-07-18] MEDS: SODIUM CHLORIDE 0.9% 1,000 ML IV SCH ×2 (12:34→17:17)
--- NOTE | 2020-07-18 16:14 | P.PN ---
Subjective Progress Note Date: 07/18/20 Patient is doing well today. She denies any abdominal pain or nausea. No more diarrhea or bowel movement. Objective - Vital Signs Vital signs: Vital Signs Temp 98.5 F 07/18/20 11:47 Pulse 45 L 07/18/20 11:47 Resp 16 07/18/20 11:47 BP 93/57 07/18/20 11:47 Pulse Ox 100 07/18/20 11:47 Intake & Output 07/17/20 07/18/20 07/18/20 18:59 06:59 18:59 Intake Total 2199 830 Balance 2199 830 Weight 52.163 kg 52.163 kg Intake: Intake, IV Titration 9 830 Amount Levofloxacin 500Mg-D5w 100 Pmx 500 mg In Dextrose/ Water 1 100ml.bag @ 100 mls/hr IVPB Q24H [facility] Rx#: [id number] Sodium Chloride 0.9% 1, 800 000 ml @ 100 mls/hr IV . Q10H [facility] Rx#:[id number] Sodium Chloride 0.9% 1, 730 000 ml @ 130 mls/hr IV . Q7H42M [facility] Rx#:[id number] Sodium Chloride 0.9% 1, 200 000 ml @ 130 mls/hr IV . Q7H42M [facility] Rx#:[id number] Sodium Chloride 0.9% 1, 999 000 ml @ 999 mls/hr IV . Q1H1M [facility] Rx#:[id number] metroNIDAZOLE-NS PMX 500 100 100 mg In Saline 1 100ml.bag @ 100 mls/hr IVPB Q8HR [facility] Rx#:[id number] Oral 0 Other: # Voids 1 # Bowel Movements 0 - Exam General: The patient is awake and alert, in no distress Eye: there is normal conjunctiva bilaterally. Neck: The neck is supple, there is no JVD. Cardiovascular: Normal S1-S2, no S3-S4, no murmurs. Respiratory: Lungs clear to auscultation bilaterally Gastrointestinal: Abdomen is soft, nontender Musculoskeletal: There is no pedal edema. Neurological:. Speech is normal. Skin: Skin is warm and dry - Labs CBC & Chem 7: 07/17/20 16:37 07/17/20 16:37 Labs: Abnormal Lab Results - Last 24 Hours (Table) 08/07/17/20 07/17/20 Range/Units 16:37 16:37 16:37 WBC 14.9 H (3.8-10.6) k/uL Plt Count 147 L (150-450) k/uL Neutrophils # 14.1 H (1.3-7.7) k/uL Lymphocytes # 0.4 L (1.0-4.8) k/uL APTT (22.0-30.0) sec Sodium 135 L (137-145) mmol/L Carbon Dioxide 19 L (22-30) mmol/L BUN 20 H (7-17) mg/dL Glucose 124 H (74-99) mg/dL Plasma Lactic Acid [place] (0.7-2.0) mmol/L Total Bilirubin 5.0 H (0.2-1.3) mg/dL C-Reactive Protein (<10.0) mg/L Lipase 15 L (23-300) U/L Procalcitonin (0.02-0.09) ng/mL Urine Protein 1+ H (Negative) Urine Ketones 4+ H (Negative) Urine Blood Small H (Negative) Urine RBC 6 H (0-5) /hpf Urine Mucus Few H (None) /hpf 07/17/20 07/17/20 07/17/20 Range/Units 16:37 20:56 23:10 WBC (3.8-10.6) k/uL Plt Count (150-450) k/uL Neutrophils # (1.3-7.7) k/uL Lymphocytes # (1.0-4.8) k/uL APTT 19.8 L (22.0-30.0) sec Sodium (137-145) mmol/L Carbon Dioxide (22-30) mmol/L BUN (7-17) mg/dL Glucose (74-99) mg/dL Plasma Lactic Acid Stanton 2.8 H* 2.3 H* (0.7-2.0) mmol/L Total Bilirubin (0.2-1.3) mg/dL C-Reactive Protein (<10.0) mg/L Lipase (23-300) U/L Procalcitonin (0.02-0.09) ng/mL Urine Protein (Negative) Urine Ketones (Negative) Urine Blood (Negative) Urine RBC (0-5) /hpf Urine Mucus (None) /hpf 07/17/20 07/17/20 Range/Units 23:10 23:10 WBC (3.8-10.6) k/uL Plt Count (150-450) k/uL Neutrophils # (1.3-7.7) k/uL Lymphocytes # (1.0-4.8) k/uL APTT (22.0-30.0) sec Sodium (137-145) mmol/L Carbon Dioxide (22-30) mmol/L BUN (7-17) mg/dL Glucose (74-99) mg/dL Plasma Lactic Acid [place] (0.7-2.0) mmol/L Total Bilirubin (0.2-1.3) mg/dL C-Reactive Protein 12.8 H (<10.0) mg/L Lipase (23-300) U/L Procalcitonin 0.12 H (0.02-0.09) ng/mL Urine Protein (Negative) Urine Ketones (Negative) Urine Blood (Negative) Urine RBC (0-5) /hpf Urine Mucus (None) /hpf Assessment and Plan Assessment: This is a 29-year-old female who presented to the emergency room with abdominal pain and currently admitted to the hospital for further management of her medical problems noted below. acute colitis: Started on empiric antibiotic. This likely C. diff given her clinical picture. Diarrhea resolved. Continue IV fluid hydration. Start liquid diet and advance as tolerated. refractory nausea and vomiting: Now resolved lactic acidosis: Resolved chronic conditions [place] syndrome with elevated bilirubin Anticipate discharge home tomorrow
--- NOTE | 2020-07-19 09:51 | P.DS ---
Providers Date of admission: 07/17/20 19:28 Expected date of discharge: 07/19/20 Attending physician: Hussein Young MD Consults: 07/17/20 19:41 Consult Physician Routine Consulting Provider: Daniele Whitaker Consult Reason/Comments: Shirain Do you want consulting provider notified?: Yes Primary care physician: Dara Jarvis [facility] Course: Patient left the hospital AMA during the drop wire aligner. I did not see her prior to her departure. Below is a Summary of her presentation. For further details refer to that she physician documentation This is a 29-year-old female who presented to the emergency room with abdominal pain and currently admitted to the hospital for further management of her medical problems noted below. acute colitis: Started on empiric antibiotic. Less likely C. diff given her clinical presentation. Diarrhea resolved. Continue IV fluid hydration. Start liquid diet and advance as tolerated. refractory nausea and vomiting: Now resolved lactic acidosis: Resolved chronic conditions [place] syndrome with elevated bilirubin Patient Condition at Discharge: Good Plan - Discharge Summary New Discharge Prescriptions: No Action No Known Home Medications Discharge Medication List No Known Home Medications 07/17/20 [History] Follow up Appointment(s)/Referral(s): Dara Jarvis MD [Primary Care Provider] - 1-2 days Patient Instructions/Handouts: Acute Nausea and Vomiting (ED)
== END 2020-07-18 20:23 | disposition home or self-care (01) | DRG 392 ==
LOC: EC 15:56 → 5NMEDONC 19:28
PROVIDERS: ADMIT Internal Medicine; ATTEND Internal Medicine
DX: K52.9 Noninfective gastroenteritis and colitis, unspecified (principal); E87.2 Acidosis; E80.4 Gilbert syndrome; E86.0 Dehydration; E80.6 Other disorders of bilirubin metabolism; Z87.891 Personal history of nicotine dependence; Z90.49 Acquired absence of other specified parts of digestive tract
CPT/HCPCS: 36415; 74177; 80053; 80320; 81001; 81025; 82150; 82550; 83605; 83615; 83690; 84145; 85025; 85379; 85610; 85730; 86140; 87040; 96361; 96372; 96374; 96375; 99285

== ENCOUNTER 2020-07-23 08:10 | Day surgery (SDC) | payer OTHER ==
[2020-07-17 13:01] VITALS: BMI 19.7
[~2020-07-23 08:10] MED LIST: DEXAMETHASONE SOD PHOSPHATE 10 MG/ML 1 ML VIAL IV ONE; HYDROmorphone 0.5 MG/0.5 ML SYRINGE IVP PRN; LACTATED RINGERS 1,000 ML IV SCH; ONDANSETRON 4 MG/2 ML VIAL IVP ONE; Pre Op ABX Message 1 EACH MISC MISCELLANE ONE
[2020-07-23] MEDS ORDERED: ONDANSETRON 4 MG/2 ML VIAL ONE (08:42)
[2020-07-23] MEDS ORDERED: MIDAZOLAM 2 MG/2 ML VIAL ONE (10:02)
[2020-07-23] MEDS ORDERED: LIDOCAINE 1% INJ 10MG/ML (20 ML MDV) ONE (10:02)
[2020-07-23] MEDS ORDERED: PROPOFOL 10 MG/ML 20 ML VIAL IV ONE (10:02)
[2020-07-23] MEDS ORDERED: fentaNYL (PF) 50 MCG/ML 2 ML AMP ONE (10:02)
[2020-07-23] MEDS ORDERED: SILVER NITRATE APPLICATOR 1 EACH STICK..EA. TOPICAL ONE (10:24)
--- NOTE | 2020-07-23 10:34 | P.OP ---
Date of Procedure: 07/23/20 Preoperative Diagnosis: Retained IUD Postoperative Diagnosis: Same Procedure(s) Performed: Hysteroscopic removal of IUD Anesthesia: MAC Surgeon: Eugenia Hurst Estimated Blood Loss (ml): 2 Urine output (ml): 300 Pathology: none sent Condition: stable Disposition: PACU Indications for Procedure: This 29-year-old presented to the office for removal of IUD. Patient desires . Patient states the IUD was placed at an outside facility and strings were not visualized. She denies changes in her bleeding pattern and states an ultrasound was done in the past revealing the IUD to be within the uterus. Ultrasound on the date of her appointment with myself confirmed IUD placement within the uterus. Operative Findings: IUD within uterine cavity Description of Procedure: Patient was taken back to the operating suite where general anesthesia was obtained without difficulty by the anesthesia department. She was prepped and draped in normal sterile fashion in the dorsal lithotomy position. A red rubber catheter was then used to drain the bladder of clear yellow urine. Weighted speculum was placed in the posterior vaginal vault intralipids the cervix is visualized and grasped with a single-tooth tenaculum. Endocervical canal was then serially dilated to 15-[place]. The hysteroscope was then placed through the cervix and toward the endometrial cavity. The IUD was visualized within the endometrial cavity. Strings were noted to be just above the internal cervical os. A Ludy was then used to grasp the strings and IUD was removed difficulty. The single-tooth tenaculum was taken off of the anterior lip of the cervix. Hemostasis was appreciated, after Silver nitrate placement. Next All counts are correct 2, patient tolerated procedure well
[2020-07-23 10:38] VITALS: TEMP 97.4
[2020-07-23] MEDS ORDERED: LACTATED RINGERS 1,000 ML IV ONE (11:01)
[2020-07-23] MEDS ORDERED: ONDANSETRON 4 MG/2 ML VIAL IVP ONE (11:08)
[2020-07-23 11:30] VITALS: RESP 16
[2020-07-23] MEDS ORDERED: KETOROLAC 30 MG/ML 1 ML VIAL ONE (11:35)
[2020-07-23] MEDS ORDERED: KETOROLAC 15 MG/ML 1 ML VIAL IVP ONE (11:36)
[2020-07-23 11:55] VITALS: BP 104/57; PULSE 48
== END 2020-07-23 12:17 | disposition home or self-care (01) ==
LOC: OR 08:10
PROVIDERS: ATTEND Obstetrics & Gynecology Obstetrics
DX: Z30.432 Encounter for removal of intrauterine contraceptive device (principal); D64.9 Anemia, unspecified; F41.9 Anxiety disorder, unspecified; Z90.49 Acquired absence of other specified parts of digestive tract; Z98.891 History of uterine scar from previous surgery; Z82.49 Family history of ischemic heart disease and other diseases of the circulatory system; Z83.3 Family history of diabetes mellitus; Z83.49 Family history of other endocrine, nutritional and metabolic diseases; E80.4 Gilbert syndrome
CPT/HCPCS: 81025; 58562; J2250; J1100; J2405; J2001; J3010; J1885; J2704; J1170

== ENCOUNTER 2020-08-15 17:23 | Emergency (ER) | payer OTHER ==
[2020-08-15 17:40] VITALS: BP 156/68; PULSE 52; RESP 16; TEMP 97.9
[2020-08-15] MEDS ORDERED: KETOROLAC 15 MG/ML 1 ML VIAL IVP STA (18:36)
[2020-08-15] MEDS ORDERED: PANTOPRAZOLE 40 MG/10 ML VIAL IVP STA (18:36)
[2020-08-15] MEDS ORDERED: ONDANSETRON 4 MG/2 ML VIAL IVP STA (18:36)
[2020-08-15] MEDS ORDERED: SODIUM CHLORIDE 0.9% 1,000 ML IV STA (18:36)
--- NOTE | 2020-08-15 19:05 | ED ---
Nausea/Vomiting/Diarrhea HPI - General Chief complaint: Nausea/Vomiting/Diarrhea Stated complaint: vomiting, nausea, week revisit 3weeks Time Seen by Provider: 08/15/20 18:17 Source: patient Mode of arrival: wheelchair Limitations: no limitations - History of Present Illness Initial comments: Patient is a 29-year-old female presenting to the emergency Department with complaints of nausea, vomiting, abdominal pain has been increasing today. Patient states she was seen in this ER 3 weeks ago for same complaint and had a complete workup and then was admitted later in the day for intractable nausea and vomiting. She states she ended up leaving AMA while admitted secondary to needing to get stuff done at home and she is starting to feel better. She states she went to [facility] earlier today and did have another computed tomography scan as well as blood work which showed no acute abnormalities so they discharged her. Patient states over the last few weeks he has been nauseous every morning when she wakes up, intermittent abdominal pain. Patient states she's not had the vomiting until today. She denies any fever but is having chills. She denies being at this time secondary to control. She denies any shortness of breath, has been having regular bowel movements. She does admit history cholecystectomy, no other abdominal surgeries. She has no further complaints. Upon arrival to the ER, her vitals are stable. - Related Data Previous Rx's Medication Instructions Recorded Ketorolac [Toradol] 10 mg PO Q8HR #15 tab 08/15/20 Allergies Allergy/AdvReac Type Severity Reaction Status Date / Time No Known Allergies Allergy Verified 08/15/20 17:39 Review of Systems ROS Statement: Those systems with pertinent positive or pertinent negative responses have been documented in the HPI. ROS Other: All systems not noted in ROS Statement are negative. Past Medical History Past Medical History: Osteoarthritis (OA) Additional Past Medical History / Comment(s): [place] Syndrome History of Any Multi-Drug Resistant Organisms: None Reported Past Surgical History: Appendectomy, Section, Cholecystectomy, Orthopedic Surgery Additional Past Surgical History / Comment(s): Right knee surgery. Past Anesthesia/Blood Transfusion Reactions: No Reported Reaction Past Psychological History: No Psychological Hx Reported Smoking Status: Former smoker Past Alcohol Use History: Occasional Past Drug Use History: Marijuana - Past Family History Mother Family Medical History: No Reported History General Exam - General Exam Comments Initial Comments: GENERAL: Patient is well-developed and well-nourished. Patient is nontoxic and in no acute distress. HEAD: Atraumatic, normocephalic. EYES: Pupils equal round and reactive to light, extraocular movements intact, sclera anicteric, conjunctiva are normal. Eyelids were unremarkable. ENT: TMs normal, nares patent, oropharynx clear without exudates. Moist mucous membranes. NECK: Normal range of motion, supple without lymphadenopathy or JVD. LUNGS: Unlabored respirations. Breath sounds clear to auscultation bilaterally and equal. No wheezes rales or rhonchi. HEART: Regular rate and rhythm without murmurs, rubs or gallops. ABDOMEN: Generalized abdominal tenderness, no specific area pain. Soft, normoactive bowel sounds. No guarding, no rebound. No masses appreciated. : Deferred MUSCULOSKELETAL: Normal extremities with adequate strength and normal range of motion, no pitting or edema. No clubbing or cyanosis. NEUROLOGICAL: Patient is alert and oriented x 3. Motor and sensory are also intact. Cranial nerves II through XII grossly intact. Symmetrical smile. Normal speech, normal gait. PSYCH: Normal mood, normal affect. SKIN: Warm, Dry, normal turgor, no rashes or lesions noted. Limitations: no limitations Course Vital Signs 08/15/20 17:36 Temperature 97.9 F Pulse Rate 52 L Respiratory 16 Rate Blood Pressure 156/68 O2 Sat by Pulse 99 Oximetry Medical Decision Making - Medical Decision Making Patient is a 29-year-old female here for intermittent nausea, diffuse abdominal pain and today vomiting. She was evaluated for same complaint 3 weeks ago here and again today prior to arrival at [facility]. She's had 2 abdominal pelvic CTs over the past 3 weeks with shows no acute abnormalities, evidence of gastroenteritis. Vitals are stable. Labs are stable, liver enzymes are stable, lipase is normal. Urine today does show 4+ ketone, no evidence of infection, hCG is not detected. Patient was given fluids, Toradol and Zofran she has been resting comfortably in the ER. I did check on patient on 2 separate occasions and she was sleeping both times. The patient that her symptoms could be related gastroenteritis or stress. I did recommend following up with a GI doctor. I discussed that she is stable at this time and does not need to be admitted. Patient is in agreement with this plan of care. She will call GI for seeing in the morning. I did give send her home with a starter pack of Zofran as well as Toradol for discomfort. Return parameters were discussed with the patient she verbalized understanding. Case discussed with Dr. Rios. - Lab Data Result diagrams: 08/15/20 18:43 08/15/20 18:43 Lab Results 08/15/20 08/15/20 08/15/20 Range/Units 18:43 18:43 18:43 WBC 8.6 (3.8-10.6) k/uL RBC 4.84 (3.80-5.40) m/uL Hgb 14.3 (11.4-16.0) gm/dL Hct 43.1 (34.0-46.0) % MCV 89.0 (80.0-100.0) fL MCH 29.5 (25.0-35.0) pg MCHC 33.2 (31.0-37.0) g/dL RDW 12.5 (11.5-15.5) % Plt Count 105 L (150-450) k/uL Neutrophils % 94 % Lymphocytes % 4 % Monocytes % 2 % Eosinophils % 0 % Basophils % 0 % Neutrophils # 8.0 H (1.3-7.7) k/uL Lymphocytes # 0.3 L (1.0-4.8) k/uL Monocytes # 0.2 (0-1.0) k/uL Eosinophils # 0.0 (0-0.7) k/uL Basophils # 0.0 (0-0.2) k/uL Sodium 133 L (137-145) mmol/L Potassium 4.1 (3.5-5.1) mmol/L Chloride 102 (98-107) mmol/L Carbon Dioxide 20 L (22-30) mmol/L Anion Gap 11 mmol/L BUN 14 (7-17) mg/dL Creatinine 0.54 (0.52-1.04) mg/dL Est GFR (CKD-EPI)AfAm >90 (>60 ml/min/1.73 sqM) Est GFR (CKD-EPI)NonAf >90 (>60 ml/min/1.73 sqM) Glucose 131 H (74-99) mg/dL Calcium 9.2 (8.4-10.2) mg/dL Total Bilirubin 2.8 H (0.2-1.3) mg/dL AST 20 (14-36) U/L ALT 17 (4-34) U/L Alkaline Phosphatase 69 (38-126) U/L Total Protein 7.1 (6.3-8.2) g/dL Albumin 4.4 (3.5-5.0) g/dL Amylase 34 (30-110) U/L Lipase 33 (23-300) U/L Urine Color Yellow Urine Appearance Clear (Clear) Urine pH 6.5 (5.0-8.0) Ur Specific [place] >1.050 H (1.001-1.035) Urine Protein Trace H (Negative) Urine Glucose (UA) Negative (Negative) Urine Ketones 4+ H (Negative) Urine Blood Small H (Negative) Urine Nitrite Negative (Negative) Urine Bilirubin Negative (Negative) Urine Urobilinogen <2.0 (<2.0) mg/dL Ur Leukocyte Esterase Negative (Negative) Urine RBC 9 H (0-5) /hpf Urine WBC 1 (0-5) /hpf Ur Squamous Epith Cells 14 H (0-4) /hpf Urine Bacteria Rare H (None) /hpf Urine Mucus Rare H (None) /hpf Urine HCG, Qual (Not Detectd) 08/15/20 Range/Units 19:26 WBC (3.8-10.6) k/uL RBC (3.80-5.40) m/uL Hgb (11.4-16.0) gm/dL Hct (34.0-46.0) % MCV (80.0-100.0) fL MCH (25.0-35.0) pg MCHC (31.0-37.0) g/dL RDW (11.5-15.5) % Plt Count (150-450) k/uL Neutrophils % % Lymphocytes % % Monocytes % % Eosinophils % % Basophils % % Neutrophils # (1.3-7.7) k/uL Lymphocytes # (1.0-4.8) k/uL Monocytes # (0-1.0) k/uL Eosinophils # (0-0.7) k/uL Basophils # (0-0.2) k/uL Sodium (137-145) mmol/L Potassium (3.5-5.1) mmol/L Chloride (98-107) mmol/L Carbon Dioxide (22-30) mmol/L Anion Gap mmol/L BUN (7-17) mg/dL Creatinine (0.52-1.04) mg/dL Est GFR (CKD-EPI)AfAm (>60 ml/min/1.73 sqM) Est GFR (CKD-EPI)NonAf (>60 ml/min/1.73 sqM) Glucose (74-99) mg/dL Calcium (8.4-10.2) mg/dL Total Bilirubin (0.2-1.3) mg/dL AST (14-36) U/L ALT (4-34) U/L Alkaline Phosphatase (38-126) U/L Total Protein (6.3-8.2) g/dL Albumin (3.5-5.0) g/dL Amylase (30-110) U/L Lipase (23-300) U/L Urine Color Urine Appearance (Clear) Urine pH (5.0-8.0) Ur Specific [place] (1.001-1.035) Urine Protein (Negative) Urine Glucose (UA) (Negative) Urine Ketones (Negative) Urine Blood (Negative) Urine Nitrite (Negative) Urine Bilirubin (Negative) Urine Urobilinogen (<2.0) mg/dL Ur Leukocyte Esterase (Negative) Urine RBC (0-5) /hpf Urine WBC (0-5) /hpf Ur Squamous Epith Cells (0-4) /hpf Urine Bacteria (None) /hpf Urine Mucus (None) /hpf Urine HCG, Qual Not Detected (Not Detectd) Disposition Clinical Impression: Nausea & vomiting, Gastroenteritis Disposition: HOME SELF-CARE Condition: Stable Instructions (If sedation given, give patient instructions): Acute Nausea and Vomiting (ED) Additional Instructions: Please return to the Emergency Department if symptoms worsen or any other concerns. Use Zofran for additional nausea. May use Tylenol or Toradol for symptom relief. Follow up with GI as discussed. Prescriptions: Ketorolac [Toradol] 10 mg PO Q8HR #15 tab Is patient prescribed a controlled substance at d/c from ED?: No Referrals: Dara Jarvis MD [Primary Care Provider] - 1-2 days Phil Villalobos MD [STAFF PHYSICIAN] - 1-2 days
[2020-08-15 19:11] LABS: Basophils % (A) 0 %; Eosinophils % (A) 0 %; HCT 43.1 % (34.0-46.0); HGB 14.3 gm/dL (11.4-16.0); Lymphocytes # (A) 0.3 k/uL (1.0-4.8); Lymphocytes % (A) 4 %; MCH 29.5 pg (25.0-35.0); MCHC 33.2 g/dL (31.0-37.0); Mean Platelet Volume 11.2; Monocytes # (A) 0.2 k/uL (0-1.0); Monocytes % (A) 2 %; Neutrophils % (A) 94 %; Platelet Count 105 k/uL (150-450); RBC 4.84 m/uL (3.80-5.40); RDW 12.5 % (11.5-15.5); WBC 8.6 k/uL (3.8-10.6)
[2020-08-15 19:22] LABS: ALT 17 U/L (4-34); AST 20 U/L (14-36); African American GFR (CKD) >90 (>60 ml/min/1.73 sqM); Albumin 4.4 g/dL (3.5-5.0); Alkaline Phosphatase 69 U/L (38-126); Amylase 34 U/L (30-110); Anion Gap 11 mmol/L; Blood Urea Nitrogen 14 mg/dL (7-17); Calcium 9.2 mg/dL (8.4-10.2); Carbon Dioxide 20 mmol/L (22-30); Chloride 102 mmol/L (98-107); Glucose 131 mg/dL (74-99); Non-African American GFR(CKD) >90 (>60 ml/min/1.73 sqM); Potassium 4.1 mmol/L (3.5-5.1); Sodium 133 mmol/L (137-145); Total Bilirubin 2.8 mg/dL (0.2-1.3); Total Protein 7.1 g/dL (6.3-8.2)
[2020-08-15 19:30] LABS: Appearance,Urine Clear (Clear); Bacteria,Urine Rare /hpf; Bilirubin,Urine Negative (Negative); Blood,Urine Small (Negative); Color,Urine Yellow; Glucose,Urine (UA) Negative (Negative); Ketones,Urine 4+ (Negative); Leukocyte Esterase,Urine Negative (Negative); Mucus,Urine Rare /hpf; Nitrite,Urine Negative (Negative); PH, Urine 6.5 (5.0-8.0); Protein,Urine Trace (Negative); RBC,Urine 9 /hpf (0-5); Squamous Epithelial Cell,Urine 14 /hpf (0-4); Urobilinogen,Urine <2.0 mg/dL (<2.0); WBC,Urine 1 /hpf (0-5)
[2020-08-15 19:34] LABS: Specific Gravity,Urine >1.050 (1.001-1.035)
[2020-08-15] MEDS ORDERED: ONDANSETRON 4 MG ODT STARTER PACK 2 TAB BTL PO STA (21:36)
== END 2020-08-15 21:44 | disposition home or self-care (01) ==
LOC: EC 17:23
DX: K52.9 Noninfective gastroenteritis and colitis, unspecified (principal); Z90.49 Acquired absence of other specified parts of digestive tract; Z90.89 Acquired absence of other organs; Z87.891 Personal history of nicotine dependence
CPT/HCPCS: 36415; 80053; 82150; 83690; 85025; 81001; 81025; 99284; 96374; 96375 ×2; 96361; J2405; J1885; S0119; C9113

== ENCOUNTER 2020-08-16 21:30 | Inpatient (IN) | payer OTHER ==
[2020-08-16] MEDS ORDERED: FAMOTIDINE 20 MG/2 ML VIAL IV STA (22:17)
[2020-08-16] MEDS ORDERED: SODIUM CHLORIDE 0.9% 1,000 ML IV ONE (22:17)
[2020-08-16] MEDS ORDERED: PROMETHAZINE INJ 25 MG in SODIUM CHLORIDE 0.9% 50 ML IVPB STA (22:17)
--- NOTE | 2020-08-16 22:21 | ED ---
Abdominal Pain HPI - General Chief Complaint: Abdominal Pain Stated Complaint: ABD pain Time Seen by Provider: 08/16/20 21:55 Source: patient Mode of arrival: wheelchair Limitations: no limitations - History of Present Illness Initial Comments: This patient is 29-year-old woman who presents to be evaluated for diffuse abdominal pain, nausea and vomiting. The patient states that she had an episode of this actually a month ago, was seen at an emergency departments and discharged without finding a cause. She states the pain recurred approximately 2 weeks ago, and then she has been having more frequent episodes since that time. She indicates that abdomen diffusely. Sharp area she has not noted worsening or relieving factors. She has had nausea vomiting and diarrhea as well. Last bowel movement being yesterday and watery. No change in urination. Patient denies passing any blood or dark tarry material no coffee-ground emesis. Patient has not noted vaginal discharge. She did have Mirena device removed approximately month ago. MD Complaint: abdominal pain -: month(s) Location: diffuse Radiation: none Migration to: no migration Severity: moderate Quality: sharp, burning Consistency: intermittent Improves With: nothing Worsens With: nothing Associated Symptoms: nausea, vomiting, diarrhea - Related Data Previous Rx's Medication Instructions Recorded Ondansetron HCl [Zofran] 4 mg PO Q8H PRN #12 tab 08/20/20 Allergies Allergy/AdvReac Type Severity Reaction Status Date / Time No Known Allergies Allergy Verified 08/16/20 22:37 Review of Systems ROS Statement: Those systems with pertinent positive or pertinent negative responses have been documented in the HPI. ROS Other: All systems not noted in ROS Statement are negative. Constitutional: Denies: fever, chills Respiratory: Denies: cough, dyspnea Cardiovascular: Denies: chest pain, palpitations, syncope Gastrointestinal: Reports: abdominal pain, nausea, vomiting, diarrhea. Denies: constipation, hematemesis, melena, hematochezia Genitourinary: Reports: other (Patient states she had the Mirena device removed last month no period yet). Denies: dysuria, frequency, hematuria, discharge Musculoskeletal: Denies: back pain Skin: Denies: rash Neurological: Denies: headache, weakness, numbness Past Medical History Past Medical History: Osteoarthritis (OA) Additional Past Medical History / Comment(s): [place] Syndrome History of Any Multi-Drug Resistant Organisms: None Reported Past Surgical History: Appendectomy, Section, Cholecystectomy, Orthopedic Surgery Additional Past Surgical History / Comment(s): Right knee surgery. Past Anesthesia/Blood Transfusion Reactions: No Reported Reaction Past Psychological History: No Psychological Hx Reported Smoking Status: Former smoker Past Alcohol Use History: Occasional Past Drug Use History: Marijuana - Past Family History Mother Family Medical History: No Reported History General Exam Limitations: no limitations General appearance: alert, in no apparent distress Head exam: Present: atraumatic, normocephalic Eye exam: Present: normal appearance. Absent: scleral icterus, conjunctival injection Respiratory exam: Present: normal lung sounds bilaterally. Absent: respiratory distress, wheezes, rales, rhonchi, stridor Cardiovascular Exam: Present: regular rate, normal rhythm, normal heart sounds. Absent: systolic murmur, diastolic murmur, rubs, gallop GI/Abdominal exam: Present: soft, hypoactive bowel sounds. Absent: distended, tenderness, guarding, rebound, rigid, mass Extremities exam: Present: normal inspection, normal capillary refill. Absent: pedal edema, calf tenderness Back exam: Present: normal inspection. Absent: CVA tenderness (R), CVA tenderness (L) Neurological exam: Present: alert Skin exam: Present: warm, dry, intact, normal color. Absent: rash Course Vital Signs 08/16/20 08/16/20 08/17/20 21:35 22:45 01:06 Temperature 99.1 F 98.3 F 99.1 F Pulse Rate 53 L 52 L 65 Pulse Rate [ Right Pulse Oximetery] Respiratory 20 20 18 Rate Blood Pressure 143/72 136/78 138/84 Blood Pressure [Right Arm] O2 Sat by Pulse 100 100 100 Oximetry 08/17/20 08/17/20 02:15 02:20 Temperature 98.1 F 98.3 F Pulse Rate 58 L Pulse Rate [ 52 L Right Pulse Oximetery] Respiratory 17 18 Rate Blood Pressure 125/85 Blood Pressure 141/85 [Right Arm] O2 Sat by Pulse 100 100 Oximetry Medical Decision Making - Lab Data Result diagrams: 08/17/20 08:00 08/18/20 07:44 Lab Results 08/16/20 08/16/20 08/16/20 Range/Units 22:16 22:16 22:16 WBC 7.7 (3.8-10.6) k/uL RBC 4.70 (3.80-5.40) m/uL Hgb 14.5 (11.4-16.0) gm/dL Hct 41.6 (34.0-46.0) % MCV 88.4 (80.0-100.0) fL MCH 30.9 (25.0-35.0) pg MCHC 35.0 (31.0-37.0) g/dL RDW 12.6 (11.5-15.5) % Plt Count 114 L (150-450) k/uL Neutrophils % 84 % Lymphocytes % 11 % Monocytes % 5 % Eosinophils % 0 % Basophils % 0 % Neutrophils # 6.5 (1.3-7.7) k/uL Lymphocytes # 0.8 L (1.0-4.8) k/uL Monocytes # 0.4 (0-1.0) k/uL Eosinophils # 0.0 (0-0.7) k/uL Basophils # 0.0 (0-0.2) k/uL Sodium (137-145) mmol/L Potassium (3.5-5.1) mmol/L Chloride (98-107) mmol/L Carbon Dioxide (22-30) mmol/L Anion Gap mmol/L BUN (7-17) mg/dL Creatinine (0.52-1.04) mg/dL Est GFR (CKD-EPI)AfAm (>60 ml/min/1.73 sqM) Est GFR (CKD-EPI)NonAf (>60 ml/min/1.73 sqM) Glucose (74-99) mg/dL Calcium (8.4-10.2) mg/dL Total Bilirubin (0.2-1.3) mg/dL AST (14-36) U/L ALT (4-34) U/L Alkaline Phosphatase (38-126) U/L C-Reactive Protein (<10.0) mg/L Total Protein (6.3-8.2) g/dL Albumin (3.5-5.0) g/dL Amylase (30-110) U/L Lipase (23-300) U/L Urine Color Yellow Urine Appearance Cloudy H (Clear) Urine pH 6.5 (5.0-8.0) Ur Specific [place] 1.021 (1.001-1.035) Urine Protein Trace H (Negative) Urine Glucose (UA) Negative (Negative) Urine Ketones 3+ H (Negative) Urine Blood Small H (Negative) Urine Nitrite Negative (Negative) Urine Bilirubin Negative (Negative) Urine Urobilinogen 3.0 (<2.0) mg/dL Ur Leukocyte Esterase Small H (Negative) Urine RBC 11 H (0-5) /hpf Urine WBC 13 H (0-5) /hpf Ur Squamous Epith Cells 6 H (0-4) /hpf Uric Acid Crystals Occasional H (None) /hpf Urine Bacteria Rare H (None) /hpf Urine Mucus Occasional H (None) /hpf Urine HCG, Qual Not Detected (Not Detectd) Coronavirus (PCR) (Not Detected) 08/16/20 08/17/20 08/17/20 Range/Units 22:16 04:34 08:00 WBC 7.2 (3.8-10.6) k/uL RBC 4.43 (3.80-5.40) m/uL Hgb 13.7 (11.4-16.0) gm/dL Hct 39.1 (34.0-46.0) % MCV 88.3 (80.0-100.0) fL MCH 30.9 (25.0-35.0) pg MCHC 35.0 (31.0-37.0) g/dL RDW 12.6 (11.5-15.5) % Plt Count 99 L (150-450) k/uL Neutrophils % % Lymphocytes % % Monocytes % % Eosinophils % % Basophils % % Neutrophils # (1.3-7.7) k/uL Lymphocytes # (1.0-4.8) k/uL Monocytes # (0-1.0) k/uL Eosinophils # (0-0.7) k/uL Basophils # (0-0.2) k/uL Sodium 133 L (137-145) mmol/L Potassium 3.4 L (3.5-5.1) mmol/L Chloride 102 (98-107) mmol/L Carbon Dioxide 22 (22-30) mmol/L Anion Gap 9 mmol/L BUN 15 (7-17) mg/dL Creatinine 0.62 (0.52-1.04) mg/dL Est GFR (CKD-EPI)AfAm >90 (>60 ml/min/1.73 sqM) Est GFR (CKD-EPI)NonAf >90 (>60 ml/min/1.73 sqM) Glucose 102 H (74-99) mg/dL Calcium 8.9 (8.4-10.2) mg/dL Total Bilirubin 3.2 H (0.2-1.3) mg/dL AST 20 (14-36) U/L ALT 18 (4-34) U/L Alkaline Phosphatase 63 (38-126) U/L C-Reactive Protein <5.0 (<10.0) mg/L Total Protein 6.9 (6.3-8.2) g/dL Albumin 4.3 (3.5-5.0) g/dL Amylase 40 (30-110) U/L Lipase 59 (23-300) U/L Urine Color Urine Appearance (Clear) Urine pH (5.0-8.0) Ur Specific [place] (1.001-1.035) Urine Protein (Negative) Urine Glucose (UA) (Negative) Urine Ketones (Negative) Urine Blood (Negative) Urine Nitrite (Negative) Urine Bilirubin (Negative) Urine Urobilinogen (<2.0) mg/dL Ur Leukocyte Esterase (Negative) Urine RBC (0-5) /hpf Urine WBC (0-5) /hpf Ur Squamous Epith Cells (0-4) /hpf Uric Acid Crystals (None) /hpf Urine Bacteria (None) /hpf Urine Mucus (None) /hpf Urine HCG, Qual (Not Detectd) Coronavirus (PCR) Not Detected (Not Detected) 08/17/20 Range/Units 08:00 WBC (3.8-10.6) k/uL RBC (3.80-5.40) m/uL Hgb (11.4-16.0) gm/dL Hct (34.0-46.0) % MCV (80.0-100.0) fL MCH (25.0-35.0) pg MCHC (31.0-37.0) g/dL RDW (11.5-15.5) % Plt Count (150-450) k/uL Neutrophils % % Lymphocytes % % Monocytes % % Eosinophils % % Basophils % % Neutrophils # (1.3-7.7) k/uL Lymphocytes # (1.0-4.8) k/uL Monocytes # (0-1.0) k/uL Eosinophils # (0-0.7) k/uL Basophils # (0-0.2) k/uL Sodium 131 L (137-145) mmol/L Potassium 4.4 (3.5-5.1) mmol/L Chloride 104 (98-107) mmol/L Carbon Dioxide 20 L (22-30) mmol/L Anion Gap 7 mmol/L BUN 7 (7-17) mg/dL Creatinine 0.48 L (0.52-1.04) mg/dL Est GFR (CKD-EPI)AfAm >90 (>60 ml/min/1.73 sqM) Est GFR (CKD-EPI)NonAf >90 (>60 ml/min/1.73 sqM) Glucose 92 (74-99) mg/dL Calcium 8.3 L (8.4-10.2) mg/dL Total Bilirubin 3.0 H (0.2-1.3) mg/dL AST 46 H (14-36) U/L ALT 20 (4-34) U/L Alkaline Phosphatase 44 (38-126) U/L C-Reactive Protein (<10.0) mg/L Total Protein 6.8 (6.3-8.2) g/dL Albumin 4.0 (3.5-5.0) g/dL Amylase (30-110) U/L Lipase (23-300) U/L Urine Color Urine Appearance (Clear) Urine pH (5.0-8.0) Ur Specific [place] (1.001-1.035) Urine Protein (Negative) Urine Glucose (UA) (Negative) Urine Ketones (Negative) Urine Blood (Negative) Urine Nitrite (Negative) Urine Bilirubin (Negative) Urine Urobilinogen (<2.0) mg/dL Ur Leukocyte Esterase (Negative) Urine RBC (0-5) /hpf Urine WBC (0-5) /hpf Ur Squamous Epith Cells (0-4) /hpf Uric Acid Crystals (None) /hpf Urine Bacteria (None) /hpf Urine Mucus (None) /hpf Urine HCG, Qual (Not Detectd) Coronavirus (PCR) (Not Detected) Disposition Clinical Impression: Intractable vomiting with nausea, Abdominal pain Disposition: ADMITTED IP TO THIS [facility] Condition: Stable Is patient prescribed a controlled substance at d/c from ED?: No
[2020-08-16 22:39] LABS: Basophils % (A) 0 %; Eosinophils % (A) 0 %; HCT 41.6 % (34.0-46.0); HGB 14.5 gm/dL (11.4-16.0); Lymphocytes # (A) 0.8 k/uL (1.0-4.8); Lymphocytes % (A) 11 %; MCH 30.9 pg (25.0-35.0); MCV 88.4 fL (80.0-100.0); Mean Platelet Volume 10.3; Monocytes # (A) 0.4 k/uL (0-1.0); Monocytes % (A) 5 %; Neutrophils # (A) 6.5 k/uL (1.3-7.7); Neutrophils % (A) 84 %; Platelet Count 114 k/uL (150-450); RDW 12.6 % (11.5-15.5); WBC 7.7 k/uL (3.8-10.6)
[2020-08-16 22:41] LABS: Appearance,Urine Cloudy (Clear); Bacteria,Urine Rare /hpf; Bilirubin,Urine Negative (Negative); Blood,Urine Small (Negative); Color,Urine Yellow; Glucose,Urine (UA) Negative (Negative); Ketones,Urine 3+ (Negative); Leukocyte Esterase,Urine Small (Negative); Mucus,Urine Occasional /hpf; Nitrite,Urine Negative (Negative); PH, Urine 6.5 (5.0-8.0); Protein,Urine Trace (Negative); RBC,Urine 11 /hpf (0-5); Specific Gravity,Urine 1.021 (1.001-1.035); Squamous Epithelial Cell,Urine 6 /hpf (0-4); Uric Acid Crystals,Urine Occasional /hpf; WBC,Urine 13 /hpf (0-5)
[2020-08-16 22:44] LABS: ALT 18 U/L (4-34); AST 20 U/L (14-36); African American GFR (CKD) >90 (>60 ml/min/1.73 sqM); Albumin 4.3 g/dL (3.5-5.0); Alkaline Phosphatase 63 U/L (38-126); Amylase 40 U/L (30-110); Anion Gap 9 mmol/L; Blood Urea Nitrogen 15 mg/dL (7-17); C Reactive Protein <5.0 mg/L (<10.0); Calcium 8.9 mg/dL (8.4-10.2); Carbon Dioxide 22 mmol/L (22-30); Chloride 102 mmol/L (98-107); Glucose 102 mg/dL (74-99); Lipase 59 U/L (23-300); Non-African American GFR(CKD) >90 (>60 ml/min/1.73 sqM); Potassium 3.4 mmol/L (3.5-5.1); Sodium 133 mmol/L (137-145); Total Bilirubin 3.2 mg/dL (0.2-1.3); Total Protein 6.9 g/dL (6.3-8.2)
[2020-08-16] MEDS ORDERED: DEXTROSE 5%-0.45% NACL 1,000 ML IV ONE (23:39)
[2020-08-17] MEDS ORDERED: ONDANSETRON 4 MG/2 ML VIAL IVP STA (00:46)
[2020-08-17] MEDS ORDERED: MAG HYDROX/AL HYDROX/SIMETH 30 ML, HYOSCYAMINE ELIXIR 10 ML, LIDOCAINE VISCOUS 2% 10 ML PO STA ×3 (00:46)
[2020-08-17] MEDS ORDERED: DICYCLOMINE 20 MG TAB PO STA (01:51)
[2020-08-17] MEDS ORDERED: ONDANSETRON 4 MG/2 ML VIAL IVP PRN (01:52)
[2020-08-17] MEDS ORDERED: PROCHLORPERAZINE SUPPOSITORY 25 MG SUPP RECTAL PRN (01:52)
[2020-08-17] MEDS ORDERED: MAG HYDROX/AL HYDROX/SIMETH 30 ML CUP PO PRN (01:52)
[2020-08-17] MEDS ORDERED: NALOXONE 0.4 MG/ML 1 ML VIAL IV PRN (01:52)
[2020-08-17] MEDS ORDERED: ACETAMINOPHEN TAB 325 MG TAB PO PRN (01:52)
[2020-08-17] MEDS: FAMOTIDINE 20 MG/2 ML VIAL IV SCH ×2 (02:06→13:16)
[2020-08-17] MEDS: DEXTROSE 5%-0.45% NACL 1,000 ML IV SCH ×2 (02:08→13:07)
--- NOTE | 2020-08-17 04:03 | P.HPIM ---
History of Present Illness H&P Date: 08/17/20 The patient is a 29-year-old female with a PMH of Gilbert syndrome and history of cholecystectomy (January 2020) and appendectomy (2009) presented to the ED with complaints of abdominal pain, nausea, and vomiting. The patient reports that her symptoms started suddenly one month ago, and have occurred intermittently, with no clear inciting event, lasting for up to 4-5 days at a time. The pain is diffuse throughout the abdomen, radiating up towards the sternum and towards the back, 10 out of 10 at maximum intensity, relieved only with opiates, with associated intractable nausea and vomiting. She also reported diarrhea with last bowel movement 2 days ago. The patient reports that she has lost upwards of 10-15 pounds over the past 1 month. She denied any prior history of such pain, though did report that she had a ruptured appendicitis in 2009. At time of interview, she reported her pain at an 8 out of 10. Denied fever, chills, chest pain, shortness of breath. Denied headaches, visual disturbances, or urinary complaint. The patient was admitted for similar complaints one month ago, at which time a CT abdomen had revealed enterocolitis. Laboratory evaluation from the emergency room was reviewed with potassium 3.4, total bilirubin 3.2, sodium 133, and platelets 114. Review of Systems Pertinent positives and negatives as discussed in HPI, a complete review of systems was performed and all other systems are negative. Past Medical History Past Medical History: Osteoarthritis (OA) Additional Past Medical History / Comment(s): [place] Syndrome History of Any Multi-Drug Resistant Organisms: None Reported Past Surgical History: Appendectomy, Section, Cholecystectomy, Orthopedic Surgery Additional Past Surgical History / Comment(s): Right knee surgery. Past Anesthesia/Blood Transfusion Reactions: No Reported Reaction Past Psychological History: No Psychological Hx Reported Smoking Status: Never smoker Past Alcohol Use History: Occasional Additional Past Alcohol Use History / Comment(s): "Smoked here and there when drinking, it's been a long time." Past Drug Use History: Marijuana Additional Drug Use History / Comment(s): Occasionally uses Marijuana - Past Family History Mother Family Medical History: No Reported History Medications and Allergies Home Medications Medication Instructions Recorded Confirmed Type No Known Home Medications 08/16/20 08/16/20 History Allergies Allergy/AdvReac Type Severity Reaction Status Date / Time No Known Allergies Allergy Verified 08/16/20 22:37 Physical Exam Vitals: Vital Signs Temp Pulse Pulse Resp BP BP Pulse Ox 08/17/20 02:20 98.3 F 52 L 18 141/85 100 08/17/20 02:15 98.1 F 58 L 17 125/85 100 08/17/20 01:06 99.1 F 65 18 138/84 100 08/16/20 22:45 98.3 F 52 L 20 136/78 100 08/16/20 21:35 99.1 F 53 L 20 143/72 100 Intake and Output 08/16/20 08/16/20 08/17/20 14:59 22:59 06:59 Other: Voiding Method Toilet Weight 49.895 kg 49.895 kg General: non toxic, no distress, appears at stated age, normal weight Derm: no unusual rashes/lesions no unusual ecchymoses, warm, dry Head: atraumatic, normocephalic, symmetric Eyes: EOMI, no lid lag, anicteric sclera, pupils equal round reactive to light ENT: Nose and ears atraumatic, no thrush, no pharyngeal erythema Neck: No thyromegaly, no cervical lymphadenopathy, trachea midline, supple Mouth: no lip lesion, mucus membranes moist Cardiovascular: S1S2 reg, no murmur, positive posterior tibial pulse bilateral, no edema, capillary refill less than 2 seconds Lungs: CTA bilateral, no rhonchi, no rales , no accessory muscle use Abdominal: soft, diffuse tenderness to palpation with minimal guarding, no appreciable organomegaly Ext: no gross muscle atrophy, muscle strength 5 out of 5 in all 4 extremities grossly, no contractures, Neuro: CN II-XI grossly intact, light touch intact all 4 extremities, finger to nose within normal limits, Psych: Alert, oriented, appropriate affect Results CBC & Chem 7: 08/16/20 22:16 08/16/20 22:16 Labs: Abnormal Lab Results - Last 24 Hours (Table) 08/16/20 08/16/20 08/16/20 Range/Units 22:16 22:16 22:16 Plt Count 114 L (150-450) k/uL Lymphocytes # 0.8 L (1.0-4.8) k/uL Sodium 133 L (137-145) mmol/L Potassium 3.4 L (3.5-5.1) mmol/L Glucose 102 H (74-99) mg/dL Total Bilirubin 3.2 H (0.2-1.3) mg/dL Urine Appearance Cloudy H (Clear) Urine Protein Trace H (Negative) Urine Ketones 3+ H (Negative) Urine Blood Small H (Negative) Ur Leukocyte Esterase Small H (Negative) Urine RBC 11 H (0-5) /hpf Urine WBC 13 H (0-5) /hpf Ur Squamous Epith Cells 6 H (0-4) /hpf Uric Acid Crystals Occasional H (None) /hpf Urine Bacteria Rare H (None) /hpf Urine Mucus Occasional H (None) /hpf Thrombosis Risk Factor Assmnt - Choose All That Apply Any of the Below Risk Factors Present?: No Other Risk Factors: No Other congenital or acquired thrombophilia - If yes, enter type in comment: No Thrombosis Risk Factor Assessment Level: Very Low Risk Assessment and Plan Plan: Abdominal pain with intractable nausea and vomiting, unclear etiology -Continue with symptomatic management for now -GI consulted -Continue with IV fluids -Anti-emetics -Covid testing -Clear liquid diet -Check for C.diff -F/u stool culture Hypokalemia -Replace and monitor Total bilirubin elevated -Likely due to underlying history of Gilbert's syndrome DVT prophylaxis -IPCDs The patient is admitted with an anticipated less than 2 midnight stay for evaluation of abdominal pain CODE STATUS: Full Code Discussed with: Patient Anticipated discharge date: 1-[address]: Home A total of 35 minutes was spent on the care of this complex patient more than 50% of the time was spent in counseling and care coordination.
[2020-08-17] MEDS: HYDROcodone/APAP 5-325MG 1 EACH TAB PO PRN ×3 (04:40→18:04)
[2020-08-17] MEDS ORDERED: HEPARIN SODIUM,PORCINE 5,000 UNIT/ML 1 ML VIAL SQ SCH (08:00)
[2020-08-17 08:15] LABS: HCT 39.1 % (34.0-46.0); HGB 13.7 gm/dL (11.4-16.0); MCH 30.9 pg (25.0-35.0); MCV 88.3 fL (80.0-100.0); Mean Platelet Volume 10.5; RBC 4.43 m/uL (3.80-5.40); RDW 12.6 % (11.5-15.5); WBC 7.2 k/uL (3.8-10.6)
[2020-08-17 09:15] LABS: ALT 20 U/L (4-34); AST 46 U/L (14-36); African American GFR (CKD) >90 (>60 ml/min/1.73 sqM); Alkaline Phosphatase 44 U/L (38-126); Anion Gap 7 mmol/L; Blood Urea Nitrogen 7 mg/dL (7-17); Calcium 8.3 mg/dL (8.4-10.2); Carbon Dioxide 20 mmol/L (22-30); Chloride 104 mmol/L (98-107); Glucose 92 mg/dL (74-99); Non-African American GFR(CKD) >90 (>60 ml/min/1.73 sqM); Potassium 4.4 mmol/L (3.5-5.1); Sodium 131 mmol/L (137-145); Total Protein 6.8 g/dL (6.3-8.2)
[2020-08-17 10:02] LABS: Platelet Count 99 k/uL (150-450)
[2020-08-17] MEDS: PROMETHAZINE 25 MG TAB PO PRN ×2 (10:38→18:03)
--- NOTE | 2020-08-17 11:16 | XR ---
EXAMINATION TYPE: XR KUB DATE OF EXAM: 08/17/2020 COMPARISON: None HISTORY: Abdomen pain TECHNIQUE: Abdomen is examined in the frontal projection FINDINGS: Nonspecific bowel gas is present. Air is within a loop of small bowel within the left midab domen. Differential air-fluid level may be present. Colonic bowel gas is present. No free air is evid ent. Psoas margins are normal. Organomegaly is not evident. No suspicious calcifications are present. Surg ical clips are within the abdomen. IMPRESSION: 1. Solitary air-fluid level within a small bowel loop within the left midabdomen. Correlate for ileu s. Obstruction is considered unlikely. Follow-up can be performed as clinically indicated.
[2020-08-17] MEDS: ONDANSETRON 4 MG/2 ML VIAL IVP SCH (11:39)
[2020-08-17] MEDS: DICYCLOMINE 20 MG TAB PO PRN ×2 (13:15→18:06)
[2020-08-17 15:34] VITALS: BMI 18.8
--- NOTE | 2020-08-17 16:58 | P.PN ---
Progress Note - Text Patient was seen, evaluated, and examined by me today. Her abdomen is soft but has severe tenderness to palpation worse in the left lower quadrant. She was seen and evaluated by GI. Abdominal x-ray showed no small bowel obstruction. She is scheduled for EGD in the morning.
[2020-08-17 20:56] LABS: African American GFR (CKD) >90 (>60 ml/min/1.73 sqM); Anion Gap 7 mmol/L; Blood Urea Nitrogen 4 mg/dL (7-17); Calcium 8.5 mg/dL (8.4-10.2); Carbon Dioxide 22 mmol/L (22-30); Chloride 106 mmol/L (98-107); Glucose 112 mg/dL (74-99); Non-African American GFR(CKD) >90 (>60 ml/min/1.73 sqM); Sodium 135 mmol/L (137-145)
[2020-08-18] MEDS: ONDANSETRON 4 MG/2 ML VIAL IVP SCH ×3 (00:22→17:03)
[2020-08-18] MEDS: POTASSIUM CHLORIDE ER 20 MEQ TAB.ER PO SCH ×2 (02:08→04:09)
[2020-08-18] MEDS: FAMOTIDINE 20 MG/2 ML VIAL IV SCH ×2 (02:08→15:25)
[2020-08-18] MEDS: DEXTROSE 5%-0.45% NACL 1,000 ML IV SCH ×2 (04:09→13:30)
--- NOTE | 2020-08-18 06:43 | XR ---
EXAMINATION TYPE: XR KUB DATE OF EXAM: 08/18/2020 6:10 AM CLINICAL HISTORY: Abdominal pain and ileus. TECHNIQUE: Two Upright KUB images of the abdomen are obtained. COMPARISON: Abdominal x-ray from one day earlier. CT abdomen and pelvis July 17, 2020. FINDINGS: Gas is seen in nondistended stomach Scattered gas is seen in non-distended small and large bowel loops. A few air-fluid levels in the right lower quadrant and pelvis currently, nonspecific fin ding. Redemonstration of cholecystectomy clips along with displaced clips into the upper pelvis bilat erally. Lung bases remain clear. No pneumoperitoneum. Visualized osseous structures are intact. IMPRESSION: Overall persistent nonspecific but strongly favor nonobstructive bowel gas pattern.
[2020-08-18 08:13] LABS: African American GFR (CKD) >90 (>60 ml/min/1.73 sqM); Anion Gap 4 mmol/L; Blood Urea Nitrogen 6 mg/dL (7-17); Calcium 8.2 mg/dL (8.4-10.2); Carbon Dioxide 23 mmol/L (22-30); Chloride 110 mmol/L (98-107); Glucose 96 mg/dL (74-99); Non-African American GFR(CKD) >90 (>60 ml/min/1.73 sqM); Potassium 3.9 mmol/L (3.5-5.1); Sodium 137 mmol/L (137-145)
[2020-08-18] MEDS: PROMETHAZINE 25 MG TAB PO PRN (08:17)
--- NOTE | 2020-08-18 08:24 | P.CONS ---
History of Present Illness - Reason for Consult Consult date: 08/17/20 Abdominal pain Requesting physician: Sylvia Castillo - Chief Complaint Abdominal pain - History of Present Illness 29-year-old female with a past medical history significant for Gilbert syndrome as well as prior cholecystectomy and appendectomy who presented to the hospital with abdominal pain, nausea and vomiting. She describes the pain as sharp and persistent in the left upper quadrant of her abdomen and in the epigastric region of her abdomen. Pain is been going on over the past month. She reports episodes of nausea and vomiting in association with the pain. She does report some loose bowel movements prior to presentation but has not had any bowel movements since that time. The patient previously had been seen in the hospital with similar complaints at which time computed tomography scan was performed and suggestive of wall thickening in the small bowel and colon. On current presentation x-ray of the abdomen showed distended small bowel suggestive of pos sible ileus. No further vomiting since that time. Laboratory evaluation significant for amylase 40, lipase 59, total bilirubin 3.0, alkaline phosphatase 44, AST 46 and ALTs 20 with WBC 7.2 and hemoglobin 13.7. Patient's denies any chronicity of her symptoms, however they have been present over the past month as stated. Review of Systems REVIEW OF SYSTEMS: CONSTITUTIONAL: Denies any fevers, chills, weight change or fatigue. CARDIOVASCULAR: Denies any chest pain, palpitations high or low blood pressures RESPIRATORY: Denies any shortness of breath, hemoptysis or cough. GENITOURINARY: No dysuria or hematuria. MUSCULOSKELETAL: No weakness reported. SKIN: Denies any new rashes or lesions, jaundice or pallor. PSYCHIATRIC: Denies any depression or anxiety. NEUROLOGY: Denies headache, denies any new focal deficits. EARS/NOSE/THROAT: No recent hearing change, congestion, nasal discharge or sore throat. EYES: No pain in eyes, discharge or change in vision. GASTROINTESTINAL: As per HPI. Past Medical History Past Medical History: Osteoarthritis (OA) Additional Past Medical History / Comment(s): [place] Syndrome History of Any Multi-Drug Resistant Organisms: None Reported Past Surgical History: Appendectomy, Section, Cholecystectomy, Orthopedic Surgery Additional Past Surgical History / Comment(s): Right knee surgery. Past Anesthesia/Blood Transfusion Reactions: No Reported Reaction Past Psychological History: No Psychological Hx Reported Smoking Status: Never smoker Past Alcohol Use History: Occasional Additional Past Alcohol Use History / Comment(s): "Smoked here and there when drinking, it's been a long time." Past Drug Use History: Marijuana Additional Drug Use History / Comment(s): Occasionally uses Marijuana - Past Family History Mother Family Medical History: No Reported History Medications and Allergies Home Medications Medication Instructions Recorded Confirmed Type No Known Home Medications 08/16/20 08/16/20 History Allergies Allergy/AdvReac Type Severity Reaction Status Date / Time No Known Allergies Allergy Verified 08/16/20 22:37 Physical Exam Vitals: Vital Signs Temp Pulse Pulse Resp BP BP Pulse Ox 08/17/20 08:05 98.7 F 51 L 16 153/83 100 08/17/20 03:00 98.3 F 52 L 18 141/85 100 08/17/20 02:20 98.3 F 52 L 18 141/85 100 08/17/20 02:15 98.1 F 58 L 17 125/85 100 08/17/20 01:06 99.1 F 65 18 138/84 100 08/16/20 22:45 98.3 F 52 L 20 136/78 100 08/16/20 21:35 99.1 F 53 L 20 143/72 100 Intake and Output 08/16/20 08/17/20 08/17/20 22:59 06:59 14:59 Intake Total 200 Balance 200 Intake: Intake, IV Titration 200 Amount Dextrose 5%-0.45% NaCl 1, 200 000 ml @ 90 mls/hr IV . Q11H7M [facility] Rx#:[id number] Other: Voiding Method Toilet Toilet # Voids 1 Weight 49.895 kg 49.895 kg On physical examination, patient appears comfortable in no apparent distress. HEAD: Normocephalic, atraumatic. EYES: No scleral icterus. No conjunctival injection. MOUTH: No lesions, tongue midline. NECK: Trachea midline, no gross abnormalities. CHEST: Clear to auscultation with no wheezing or rhonchi appreciated. HEART: Regular rate and rhythm. ABDOMEN: Soft, nondistended and only mildly tender to palpation. Bowel sounds are positive. No organomegaly. No guarding or rigidity. EXTREMITIES: No pedal edema. SKIN: No rashes, no jaundice. NEUROLOGIC: Alert and oriented x3. No focal deficits. Results CBC & Chem 7: 08/17/20 08:00 08/17/20 20:32 Labs: Abnormal Lab Results - Last 24 Hours (Table) 08/16/20 08/16/20 08/16/20 Range/Units 22:16 22:16 22:16 Plt Count 114 L (150-450) k/uL Lymphocytes # 0.8 L (1.0-4.8) k/uL Sodium 133 L (137-145) mmol/L Potassium 3.4 L (3.5-5.1) mmol/L Carbon Dioxide (22-30) mmol/L Creatinine (0.52-1.04) mg/dL Glucose 102 H (74-99) mg/dL Calcium (8.4-10.2) mg/dL Total Bilirubin 3.2 H (0.2-1.3) mg/dL AST (14-36) U/L Urine Appearance Cloudy H (Clear) Urine Protein Trace H (Negative) Urine Ketones 3+ H (Negative) Urine Blood Small H (Negative) Ur Leukocyte Esterase Small H (Negative) Urine RBC 11 H (0-5) /hpf Urine WBC 13 H (0-5) /hpf Ur Squamous Epith Cells 6 H (0-4) /hpf Uric Acid Crystals Occasional H (None) /hpf Urine Bacteria Rare H (None) /hpf Urine Mucus Occasional H (None) /hpf 08/17/20 08/17/20 Range/Units 08:00 08:00 Plt Count 99 L (150-450) k/uL Lymphocytes # (1.0-4.8) k/uL Sodium 131 L (137-145) mmol/L Potassium (3.5-5.1) mmol/L Carbon Dioxide 20 L (22-30) mmol/L Creatinine 0.48 L (0.52-1.04) mg/dL Glucose (74-99) mg/dL Calcium 8.3 L (8.4-10.2) mg/dL Total Bilirubin 3.0 H (0.2-1.3) mg/dL AST 46 H (14-36) U/L Urine Appearance (Clear) Urine Protein (Negative) Urine Ketones (Negative) Urine Blood (Negative) Ur Leukocyte Esterase (Negative) Urine RBC (0-5) /hpf Urine WBC (0-5) /hpf Ur Squamous Epith Cells (0-4) /hpf Uric Acid Crystals (None) /hpf Urine Bacteria (None) /hpf Urine Mucus (None) /hpf Microbiology - Last 24 Hours (Table) 08/16/20 22:16 Urine Culture - Preliminary Urine,Clean Catch Abdominal x-ray: report reviewed (x-ray of the abdomen with findings of distended small bowel suggestive of ileus) Assessment and Plan (1) Abdominal pain Narrative/Plan: 29-year-old female presented to the hospital with abdominal pain, nausea and vomiting. Has been having symptoms over the past month. Extensive surgical history including appendectomy and cholecystectomy in the past. She reports multiple episodes of nausea and vomiting in association with pain in the epigastric and left lower quadrant region of her abdomen. Previously she had undergone CT on prior admission showing possible thickening of the small bowel and colon. X-ray on current presentation suggestive of ileus. At this time no further nausea or vomiting but she is also stating that she has had no more bowel movements since presentation endoscopic passing flatus. Unclear if symptoms are secondary to ileus, gastroenteritis, inflammatory process, or other etiology. Current Visit: Yes Status: Acute Code(s): R10.9 - UNSPECIFIED ABDOMINAL PAIN SNOMED Code(s): 49305206 (2) Ileus Current Visit: Yes Status: Acute Code(s): K56.7 - ILEUS, UNSPECIFIED SNOMED Code(s): 087096875 (3) Intractable vomiting with nausea Current Visit: Yes Status: Acute Code(s): R11.2 - NAUSEA WITH VOMITING, UNSPECIFIED SNOMED Code(s): 425840883 (4) Elevated bilirubin Current Visit: No Status: Acute Code(s): R17 - UNSPECIFIED JAUNDICE SNOMED Code(s): 07643198 (5) Nausea & vomiting Current Visit: No Status: Acute Code(s): R11.2 - NAUSEA WITH VOMITING, UNSPECIFIED SNOMED Code(s): 28550699 Plan: Supportive care Okay for ice chips and small amounts of liquids X-ray of the morning If resolution of the ileus and patient is able to pass flatus and bowel movements can consider endoscopic evaluation on Thursday, if persistence of ileus is seen would recommend surgical consult and consideration for NG tube placement Continue to monitor CBC, CMP, and clinically The case was discussed with the patient at length with both the risks, benefits and possible complications of endoscopic evaluation and if she is feeling better can proceed to this on Thursday otherwise patient can follow-up after discharge in the GI clinic for scheduling Thank you for allowing us to see's pain in the care of the patient
--- NOTE | 2020-08-18 12:46 | P.PN ---
Subjective Progress Note Date: 08/18/20 Patient is doing a lot better today. She denies any nausea or vomiting. She was supposed to be scheduled for an EGD and colonoscopy today. Nursing staff inform you the procedure was postponed until tomorrow. Objective - Vital Signs Vital signs: Vital Signs Temp 98.2 F 08/18/20 09:00 Pulse 50 L 08/18/20 09:00 Resp 14 08/18/20 09:00 BP 101/62 08/18/20 09:00 Pulse Ox 100 08/18/20 09:00 Intake & Output 08/17/20 08/18/20 08/18/20 18:59 06:59 18:59 Intake Total 230 400 Balance 230 400 Weight 49.895 kg Intake: Intake, IV Titration 400 Amount Dextrose 5%-0.45% NaCl 1, 400 000 ml @ 90 mls/hr IV . Q11H7M [facility] Rx#:[id number] Oral 230 Other: # Voids 2 1 # Bowel Movements 0 - Exam General: The patient is awake and alert, in no distress Eye: there is normal conjunctiva bilaterally. Neck: The neck is supple, there is no JVD. Cardiovascular: Normal S1-S2, no S3-S4, no murmurs. Respiratory: Lungs clear to auscultation bilaterally Gastrointestinal: Abdomen is soft, nontender Musculoskeletal: There is no pedal edema. Neurological:. Speech is normal. Skin: Skin is warm and dry - Labs CBC & Chem 7: 08/17/20 08:00 08/18/20 07:44 Labs: Abnormal Lab Results - Last 24 Hours (Table) 08/17/20 08/18/20 Range/Units 20:32 07:44 Sodium 135 L (137-145) mmol/L Potassium 3.0 L (3.5-5.1) mmol/L Chloride 110 H (98-107) mmol/L BUN 4 L 6 L (7-17) mg/dL Creatinine 0.50 L (0.52-1.04) mg/dL Glucose 112 H (74-99) mg/dL Calcium 8.2 L (8.4-10.2) mg/dL Microbiology - Last 24 Hours (Table) 08/16/20 22:16 Urine Culture - Preliminary Urine,Clean Catch Gram Neg Bacilli Assessment and Plan Assessment: This is a 29-year-old female with past medical history noted below that p resented to the emergency room with abdominal pain, nausea, and vomiting. Patient was evaluated and placed on observation for further management of her medical problems noted below. 1. Abdominal pain with nausea and vomiting, may be attributed to viral gastritis. Abdominal x-ray showed no evidence of small bowel obstruction. Improved significantly with conservative management. Symptoms resolved. Patient was seen and evaluated by GI. She is scheduled for EGD tomorrow. 2. Hypokalemia: Replace. We will continue to monitor 3. History of Gilbert's syndrome 4. History of appendectomy and cholecystectomy 5. GI and DVT prophylaxis with IV Pepcid and subcu heparin
[2020-08-18] MEDS ORDERED: PEG 3350-NA SULF,BICARB,CL/KCL 4,000 ML BOTTLE PO ONE (15:00)
[2020-08-18] MEDS ORDERED: bisacodyL 5 MG TABLET.DR PO ONE (17:00)
[2020-08-18] MEDS: HEPARIN SODIUM,PORCINE 5,000 UNIT/ML 1 ML VIAL SQ SCH (20:41)
[2020-08-19] MEDS: ONDANSETRON 4 MG/2 ML VIAL IVP SCH ×3 (00:22→16:29)
[2020-08-19] MEDS: FAMOTIDINE 20 MG/2 ML VIAL IV SCH ×2 (02:50→15:05)
[2020-08-19] MEDS: PROMETHAZINE 25 MG TAB PO PRN ×2 (04:39→11:48)
[2020-08-19] MEDS: DICYCLOMINE 20 MG TAB PO PRN ×2 (04:40→12:17)
[2020-08-19] MEDS: DEXTROSE 5%-0.45% NACL 1,000 ML IV SCH ×3 (05:55→21:51)
[2020-08-19] MEDS ORDERED: IV FLUID CONTINUATION 700 ML IV ONE (08:03)
[2020-08-19] MEDS ORDERED: PROPOFOL 10 MG/ML 20 ML VIAL IV ONE (08:05)
[2020-08-19] MEDS ORDERED: LIDOCAINE 1% INJ 10MG/ML (20 ML MDV) ONE (08:05)
--- NOTE | 2020-08-19 08:52 | P.PN ---
Subjective Progress Note Date: 08/18/20 Principal diagnosis: Abdominal pain, intractable nausea and vomiting, abnormal computed tomography scan abdomen Patient is seen lying in bed today reporting she is passing some gas. He tolerated some liquids. Still having some abdominal pain. Objective - Vital Signs Vital signs: Vital Signs Temp 98.2 F 08/18/20 09:00 Pulse 50 L 08/18/20 09:00 Resp 14 08/18/20 09:00 BP 101/62 08/18/20 09:00 Pulse Ox 100 08/18/20 09:00 Intake & Output 08/17/20 08/18/20 08/18/20 18:59 06:59 18:59 Intake Total 230 Balance 230 Weight 49.895 kg Intake: Oral 230 Other: # Voids 2 1 # Bowel Movements 0 - Exam On physical examination, patient appears comfortable in no apparent distress. HEAD: Normocephalic, atraumatic. EYES: No scleral icterus. No conjunctival injection. MOUTH: No lesions, tongue midline. NECK: Trachea midline, no gross abnormalities. ABDOMEN: Soft, mildly tender to palpation. Bowel sounds are positive. No organomegaly. No guarding or rigidity. EXTREMITIES: No pedal edema. SKIN: No rashes, no jaundice. NEUROLOGIC: Alert and oriented x3. No focal deficits. - Labs CBC & Chem 7: 08/17/20 08:00 08/18/20 07:44 Labs: Abnormal Lab Results - Last 24 Hours (Table) 08/17/20 08/18/20 Range/Units 20:32 07:44 Sodium 135 L (137-145) mmol/L Potassium 3.0 L (3.5-5.1) mmol/L Chloride 110 H (98-107) mmol/L BUN 4 L 6 L (7-17) mg/dL Creatinine 0.50 L (0.52-1.04) mg/dL Glucose 112 H (74-99) mg/dL Calcium 8.2 L (8.4-10.2) mg/dL Microbiology - Last 24 Hours (Table) 08/16/20 22:16 Urine Culture - Preliminary Urine,Clean Catch Assessment and Plan (1) Abdominal pain Narrative/Plan: 29-year-old female presented to the hospital with abdominal pain, nausea and vomiting. Has been having symptoms over the past month. Extensive surgical history including appendectomy and cholecystectomy in the past. She reports multiple episodes of nausea and vomiting in association with pain in the epigas tric and left lower quadrant region of her abdomen. Previously she had undergone CT on prior admission showing possible thickening of the small bowel and colon. X-ray on current presentation suggestive of ileus. At this time no further nausea or vomiting but she is also stating that she has had no more bowel movements since presentation endoscopic passing flatus. Unclear if symptoms are secondary to ileus, gastroenteritis, inflammatory process, or other etiology. Current Visit: Yes Status: Acute Code(s): R10.9 - UNSPECIFIED ABDOMINAL PAIN SNOMED Code(s): 54237026 (2) Ileus Current Visit: Yes Status: Acute Code(s): K56.7 - ILEUS, UNSPECIFIED SNOMED Code(s): 803277500 (3) Intractable vomiting with nausea Current Visit: Yes Status: Acute Code(s): R11.2 - NAUSEA WITH VOMITING, UNSPECIFIED SNOMED Code(s): 895273353 (4) Elevated bilirubin Current Visit: No Status: Acute Code(s): R17 - UNSPECIFIED JAUNDICE SNOMED Code(s): 41335220 (5) Nausea & vomiting Current Visit: No Status: Acute Code(s): R11.2 - NAUSEA WITH VOMITING, UNSPECIFIED SNOMED Code(s): 80218859 Plan: Supportive care Tolerating liquids Repeat x-ray negative for ileus or obstruction with nonspecific bowel gas pattern We'll proceed to EGD and colonoscopy tomorrow Bowel prep ordered Nothing by mouth after midnight Thank you for allowing us to participate in the care of the patient
[2020-08-19] MEDS: HEPARIN SODIUM,PORCINE 5,000 UNIT/ML 1 ML VIAL SQ SCH ×2 (08:56→21:52)
--- NOTE | 2020-08-19 08:56 | P.PCN ---
Date of Procedure: 08/19/20 Description of Procedure: Brief history: 29-year-old female with a past medical history significant for Gilbert syndrome as well as prior cholecystectomy and appendectomy who presented to the hospital with abdominal pain, nausea and vomiting. She describes the pain as sharp and persistent in the left upper quadrant of her abdomen and in the epigastric region of her abdomen. Pain is been going on over the past month. She reports episodes of nausea and vomiting in association with the pain. She does report some loose bowel movements prior to presentation but has not had any bowel movements since that time. The patient previously had been seen in the hospital with similar complaints at which time computed tomography scan was performed and suggestive of wall thickening in the small bowel and colon. On current presentation x-ray of the abdomen showed distended small bowel suggestive of possible ileus. No further vomiting since that time. Laboratory evaluation significant for amylase 40, lipase 59, total bilirubin 3.0, alkaline phosphatase 44, AST 46 and ALTs 20 with WBC 7.2 and hemoglobin 13.7. Patient's denies any chronicity of her symptoms, however they have been present over the past month as stated. Procedure performed: Esophagogastroduodenoscopy with biopsy and foreign body removal Colonoscopy with biopsy and polypectomy and Endo Clip placement Estimated blood loss: Minimal. Preoperative diagnosis: Abdominal pain, intractable nausea and vomiting, abnormal computed tomography scan abdomen, altered bowel function Anesthesia: MAC Procedure: After informed consent was obtained from the patient was brought into the endoscopy unit and IV sedation was administered by anesthesia under continuous monitoring. Initially upper endoscopy was done. The Olympus GF 190 video endoscope was inserted into the mouth and esophagus intubated without any diff iculty and was gradually advanced into the stomach and duodenum and carefully examined. The bulb and second part of the duodenum appeared normal, with biopsies taken. The scope was then withdrawn into the stomach adequately insufflated with air and upon careful examination the antrum and body, cardia and fundus appeared normal, except for some mild scattered erythema in the antrum and body suggestive of mild gastritis with biopsies taken. There was also a round subcentimeter metal objects which the patient indicated was a tongue stud which she had swallowed which was removed with a Ballard net from the gastric body. The scope was then withdrawn into the esophagus. The GE junction was located at 40 cm to the incisors, and biopsied. It appeared regular with no erythema erosions or ulcerations. Rest of the esophagus appeared normal. Patient tolerated the procedure well. At this time the patient continued to remain sedation. Initial digital rectal examination was normal. Olympus CF 190 video colonoscope was then inserted into the rectum and gradually advanced to the cecum without any difficulty. Careful examination was performed as the scope was gradually being withdrawn. The prep was excellent. The cecum, ascending colon, transverse colon, descending colon, sigmoid colon and rectum appeared normal, with biopsies of the right and left colon in the setting of altered bowel function. The terminal ileum was intubated and appeared normal with biopsies taken. A 12 mm pedunculated sigmoid polyp was removed with hot snare polypectomy with Endo Clip placed for hemostasis. Retroflexion was performed in the rectum and no lesions were noted. Patient tolerated the procedure well. Impression: 1. Mild gastritis. Gastric foreign body removed with Ballard net. Biopsies of the duodenum, antrum and body and GE junction. 2. Large pedunculated sigmoid polyp removed with hot snare polypectomy with Endo Clip placement. Random biopsies taken of the terminal ileum, right and left colon in the setting of altered bowel function. Recommendations: Findings of this examination were discussed with the patient. Would pathology from biopsies and polypectomy. Follow-up in the GI clinic for results in 2-3 weeks. Okay to resume diet. Continue other current medical management. Okay for discharge when otherwise medically stable.
--- NOTE | 2020-08-19 16:04 | P.PN ---
Subjective Progress Note Date: 08/19/20 Patient underwent an EGD and colonoscopy today. Prior to the endoscopy, patient was trying to remove her tongue piercing and accidentally swallowed a small part that was retrieved later during EGD. After the procedure, patient still complaining of significant nausea and was unable to keep anything down. This was similar to her original presentation but her symptoms improved significantly throughout the day yesterday. Objective - Vital Signs Vital signs: Vital Signs Temp 98.4 F 08/19/20 15:00 Pulse 52 L 08/19/20 15:00 Resp 12 08/19/20 15:00 BP 102/64 08/19/20 15:00 Pulse Ox 99 08/19/20 15:00 Intake & Output 08/18/20 08/19/20 08/19/20 18:59 06:59 18:59 Intake Total 400 380 Balance 400 380 Intake: IV 200 Intake, IV Titration 400 180 Amount Dextrose 5%-0.45% NaCl 1, 400 180 000 ml @ 90 mls/hr IV . Q11H7M [facility] Rx#:[id number] Other: # Bowel Movements 4 - Exam General: The patient is awake and alert, in no distress Eye: there is normal conjunctiva bilaterally. Neck: The neck is supple, there is no JVD. Cardiovascular: Normal S1-S2, no S3-S4, no murmurs. Respiratory: Lungs clear to auscultation bilaterally Gastrointestinal: Abdomen is soft, nontender Musculoskeletal: There is no pedal edema. Neurological:. Speech is normal. Skin: Skin is warm and dry - Labs CBC & Chem 7: 08/17/20 08:00 08/18/20 07:44 Labs: Microbiology - Last 24 Hours (Table) 08/16/20 22:16 Urine Culture - Final Urine,Clean Catch Escherichia coli Assessment and Plan Assessment: This is a 29-year-old female with past medical history noted below that presented to the emergency room with abdominal pain, nausea, and vomiting. Patient was evaluated and placed on observation for further management of her medical problems noted below. 1. Abdominal pain with nausea and vomiting, may be attributed to viral gastritis. Abdominal x-ray showed no evidence of small bowel obstruction. Improved significantly with conservative management. Patient was seen and e valuated by GI. She underwent EGD showing mild gastritis and a colonoscopy showing a large sigmoid polyp that was removed. Biopsy obtained. 2. Hypokalemia: Replaced. We will continue to monitor 3. History of Gilbert's syndrome 4. History of appendectomy and cholecystectomy 5. GI and DVT prophylaxis with IV Pepcid and subcu heparin Patient continued to severe nausea and unable to keep anything down. We will continue to monitor for another day. Abdominal x-ray showed nonspecific find ings with no evidence of SBO. Given persistent symptoms I would obtain a computed tomography scan for further evaluation.
[2020-08-19] MEDS: SODIUM CHLORIDE 0.9% 1,000 ML IV SCH (16:30)
[2020-08-19] MEDS ORDERED: MORPHINE SULFATE 2 MG/ML SYRINGE IVP PRN (18:05)
--- NOTE | 2020-08-19 18:05 | CT ---
EXAMINATION TYPE: CT abdomen pelvis w con DATE OF EXAM: 08/19/2020 COMPARISON: 07/17/2020 HISTORY: Persistent nausea and vomiting, abdominal pain CT DLP: 451.5 mGycm Automated exposure control for dose reduction was used. CONTRAST: Performed with IV Contrast, patient injected with 100 mL of Isovue 300. Lung bases are clear. There is no pleural effusion. Heart size is normal. Liver spleen pancreas appear normal. There are clips from cholecystectomy. Bile ducts are not dilated . There is no adrenal mass. Stomach appears intact. Kidneys show satisfactory contrast opacification. T here is no hydronephrosis. There is normal excretion on the delayed images. There are surgical clips in the right lower quadrant. There is minimal free fluid in the pelvis. Uterus is large and anteverted. There is no evidence of pe lvic mass. Bladder distends smoothly. There is no inguinal hernia. There is no mesenteric edema. There is no ascites or free air. There is no evidence of a bowel obstru ction. There is moderate amount of large bowel gas. Lumbar vertebra have normal spacing and alignment. Posterior elements are intact. Bony pelvis is inta ct. IMPRESSION: Small amount of free fluid in the pelvis increased compared to old exam. This could be physiologic. P revious surgery. Large bowel gas suggestive of some large bowel ileus. No free air.
[2020-08-19 21:38] VITALS: RESP 16
[2020-08-20] MEDS: ONDANSETRON 4 MG/2 ML VIAL IVP SCH ×2 (00:35→09:26)
[2020-08-20] MEDS: FAMOTIDINE 20 MG/2 ML VIAL IV SCH (02:55)
[2020-08-20] MEDS: SODIUM CHLORIDE 0.9% 1,000 ML IV SCH (03:08)
[2020-08-20] MEDS: DEXTROSE 5%-0.45% NACL 1,000 ML IV SCH (09:18)
[2020-08-20] MEDS: HEPARIN SODIUM,PORCINE 5,000 UNIT/ML 1 ML VIAL SQ SCH (09:25)
[2020-08-20 10:17] VITALS: BP 101/56; PULSE 53; TEMP 97.9
--- NOTE | 2020-08-20 10:52 | P.DS ---
Providers Date of admission: 08/17/20 11:44 Expected date of discharge: 08/20/20 Attending physician: Sylvia Castillo MD Consults: 08/17/20 01:53 Consult Physician Routine Consulting Provider: Phil Villalobos Consult Reason/Comments: abdominal pain Do you want consulting provider notified?: Yes Primary care physician: Dara Jarvis [facility] Course: This is a 29-year-old female with past medical history noted below that presented to the emergency room with abdominal pain, nausea, and vomiting. Patient was evaluated and placed on observation for further management of her medical problems noted below. 1. Abdominal pain with nausea and vomiting, may be attributed to viral gastritis. Abdominal x-ray showed no evidence of small bowel obstruction. Improved significantly with conservative management. Patient was seen and evaluated by GI. She underwent EGD showing mild gastritis and a colonoscopy showing a large sigmoid polyp that was removed. Biopsy obtained. Patient will follow-up with GI regarding biopsy results. 2. Hypokalemia: Replaced. 3. History of Gilbert's syndrome 4. History of appendectomy and cholecystectomy Patient will be discharged home in a stable condition. For further details about this hospitalization please refer to the electronic chart. Time spent on discharge > 30 minutes including counseling and coordination of Patient Condition at Discharge: Stable Plan - Discharge Summary Discharge Rx Participant: No New Discharge Prescriptions: New Ondansetron HCl [Zofran] 4 mg PO Q8H PRN #12 tab PRN Reason: Nausea And Vomiting Discharge Medication List Ondansetron HCl [Zofran] 4 mg PO Q8H PRN #12 tab 08/20/20 [Rx] Follow up Appointment(s)/Referral(s): Dara Jarvis MD [Primary Care Provider] - 1-2 days Phil Villalobos MD [STAFF PHYSICIAN] - 2 Weeks Patient Instructions/Handouts: Abdominal Pain (ED) Discharge Disposition: HOME SELF-CARE
== END 2020-08-20 11:25 | disposition home or self-care (01) | DRG 392 ==
LOC: EC 21:30 → 1SOBS 08-17 01:56 → OBSVTOIN 08-17 11:44
PROVIDERS: ADMIT Internal Medicine; ATTEND Internal Medicine
PROC: 0DBM8ZX Excision of Descending Colon, Via Natural or Artificial Opening Endoscopic, Diagnostic (ICD-10-PCS; 2020-08-19)
PROC: 0DB98ZX Excision of Duodenum, Via Natural or Artificial Opening Endoscopic, Diagnostic (ICD-10-PCS; 2020-08-19)
PROC: 0DB78ZX Excision of Stomach, Pylorus, Via Natural or Artificial Opening Endoscopic, Diagnostic (ICD-10-PCS; principal; 2020-08-19 08:00)
PROC: 0DB38ZX Excision of Lower Esophagus, Via Natural or Artificial Opening Endoscopic, Diagnostic (ICD-10-PCS; 2020-08-19 08:00)
PROC: 0DBN8ZZ Excision of Sigmoid Colon, Via Natural or Artificial Opening Endoscopic (ICD-10-PCS; 2020-08-19 08:00)
PROC: 0DBK8ZX Excision of Ascending Colon, Via Natural or Artificial Opening Endoscopic, Diagnostic (ICD-10-PCS; 2020-08-19 08:00)
PROC: 0DBB8ZX Excision of Ileum, Via Natural or Artificial Opening Endoscopic, Diagnostic (ICD-10-PCS; 2020-08-19 08:00)
DX: A08.4 Viral intestinal infection, unspecified (principal); R17 Unspecified jaundice; Z20.828 Contact with and (suspected) exposure to other viral communicable diseases; M19.90 Unspecified osteoarthritis, unspecified site; E80.4 Gilbert syndrome; E87.6 Hypokalemia; K63.5 Polyp of colon; Z90.49 Acquired absence of other specified parts of digestive tract; Z98.891 History of uterine scar from previous surgery; Z87.891 Personal history of nicotine dependence; Z87.19 Personal history of other diseases of the digestive system
CPT/HCPCS: 36415; 43239; 44799; 45380; 45382; 45385; 74018; 74177; 80048; 80053; 81001; 81025; 82150; 83690; 83735; 85025; 85027; 86140; 87077; 87086; 87186; 88305; 96361; 96374; 96375; 99284

== ENCOUNTER 2021-06-02 16:21 | Observation (INO) | payer OTHER ==
[2021-06-02] MEDS ORDERED: SODIUM CHLORIDE 0.9% 1,000 ML IV ONE (17:03)
[2021-06-02] MEDS ORDERED: METOCLOPRAMIDE 5 MG/ML 2 ML VIAL IVP STA (17:03)
[2021-06-02] MEDS ORDERED: diphenhydrAMINE 50 MG/ML 1 ML VIAL IVP STA (17:03)
[2021-06-02 17:24] LABS: Basophils % (A) 0 %; Eosinophils # (A) 0.1 k/uL (0-0.7); Eosinophils % (A) 1 %; HGB 12.9 gm/dL (11.4-16.0); Lymphocytes # (A) 0.6 k/uL (1.0-4.8); Lymphocytes % (A) 5 %; MCH 31.6 pg (25.0-35.0); MCHC 35.9 g/dL (31.0-37.0); MCV 88.2 fL (80.0-100.0); Mean Platelet Volume 9.7; Monocytes # (A) 0.3 k/uL (0-1.0); Monocytes % (A) 2 %; Neutrophils # (A) 10.4 k/uL (1.3-7.7); Neutrophils % (A) 91 %; Platelet Count 130 k/uL (150-450); RBC 4.08 m/uL (3.80-5.40); RDW 13.2 % (11.5-15.5); WBC 11.4 k/uL (3.8-10.6)
[2021-06-02 17:38] LABS: ALT 41 U/L (4-34); AST 30 U/L (14-36); African American GFR (CKD) >90 (>60 ml/min/1.73 sqM); Albumin 3.8 g/dL (3.5-5.0); Alkaline Phosphatase 79 U/L (38-126); Anion Gap 11 mmol/L; Blood Urea Nitrogen 10 mg/dL (7-17); Calcium 9.2 mg/dL (8.4-10.2); Carbon Dioxide 22 mmol/L (22-30); Chloride 101 mmol/L (98-107); Glucose 120 mg/dL (74-99); Lipase 43 U/L (23-300); Non-African American GFR(CKD) >90 (>60 ml/min/1.73 sqM); Potassium 3.9 mmol/L (3.5-5.1); Sodium 134 mmol/L (137-145); Total Bilirubin 0.7 mg/dL (0.2-1.3); Total Protein 6.8 g/dL (6.3-8.2)
--- NOTE | 2021-06-02 18:31 | ED ---
Nausea/Vomiting/Diarrhea HPI - General Chief complaint: Nausea/Vomiting/Diarrhea Stated complaint: vomiting/syncope/11 wks preg Time Seen by Provider: 06/02/21 16:49 Source: patient Mode of arrival: wheelchair Limitations: no limitations - History of Present Illness Initial comments: This is a 30-year-old female who is 11 weeks who presents here department for nausea and vomiting and diarrhea. The patient states the symptoms started earlier today. She says that she's had some associated cold sweats and some abdominal discomfort with this. She also admits to feeling fatigued and lightheaded. She states that she's had these episodes multiple times in the past with unclear etiology. It was thought to be due to her marijuana use however she states she has not used marijuana for 3 weeks. She denies any dysuria or hematuria. No vaginal bleeding or discharge. She denies any other acute complaints. - Related Data Previous Rx's Medication Instructions Recorded Ondansetron HCl [Zofran] 4 mg PO Q8H PRN #12 tab 08/20/20 Allergies Allergy/AdvReac Type Severity Reaction Status Date / Time No Known Allergies Allergy Verified 06/02/21 16:48 Review of Systems ROS Statement: Those systems with pertinent positive or pertinent negative responses have been documented in the HPI. ROS Other: All systems not noted in ROS Statement are negative. Past Medical History Past Medical History: Osteoarthritis (OA) Additional Past Medical History / Comment(s): [place] Syndrome History of Any Multi-Drug Resistant Organisms: None Reported Past Surgical History: Appendectomy, Section, Cholecystectomy, Orthopedic Surgery Additional Past Surgical History / Comment(s): Right knee surgery. Past Anesthesia/Blood Transfusion Reactions: No Reported Reaction Past Psychological History: No Psychological Hx Reported Smoking Status: Former smoker Past Alcohol Use History: Occasional Past Drug Use History: Marijuana - Past Family History Mother Family Medical History: No Reported History General Exam - General Exam Comments Initial Comments: Constitutional: Awake alert appears uncomfortable Head: Normocephalic atraumatic Eyes: no conjunctival injection No scleral icterus EOMI Neck: No JVD Supple Heart: Regular rate rhythm normal S1-S2 no murmurs Lungs: Clear to auscultation bilaterally No wheezing No rales Abdomen: Soft nondistended nontender Extremities: Non edematous DP pulses intact Radial pulses intact Neuro: A&Ox3 No focal neurologic deficits Psych: Appropriate mood and affect Limitations: no limitations Course Vital Signs 06/02/21 06/02/21 06/02/21 16:45 17:48 18:00 Temperature 97.3 F L Pulse Rate 66 Respiratory 16 16 16 Rate Blood Pressure 127/77 O2 Sat by Pulse 99 Oximetry 06/02/21 20:23 Temperature 98.2 F Pulse Rate 51 L Respiratory 18 Rate Blood Pressure 137/76 O2 Sat by Pulse 97 Oximetry - Reevaluation(s) Reevaluation #1: 06/02/21 20:50 Pt still nauseated after Reglan and Zofran. Labs so far unremarkable. Acetone neg. Do not feel this is hyperemesis related to her . She has had these episodes multiple times in the past. Feel she needs to stay for antiemetics and IVF overnight. Pt agreeable. Reevaluation #2: EKG showing sinus bradycardia with a rate of 50. No abnormal ST 7 changes or T- wave inversions. QTC is 41. Other intervals normal. No ectopy. 06/02/21 21:20 Medical Decision Making - Medical Decision Making Is a 30-year-old female presents emergency department for nausea and vomiting. Patient was given 2 doses of antiemetics without any complete resolution of her symptoms. Blood work was obtained and most unremarkable however she did have 4+ ketones in her urine. Patient was started on D5 normal saline. She can be admitted to labor and delivery to Dr. Iqbal who stated that he would place worse when she arrived on the unit. Patient was updated and all questions were answered. - Lab Data Result diagrams: 06/02/21 17:11 06/02/21 17:11 Lab Results 06/02/21 06/02/21 06/02/21 Range/Units 17:11 17:11 17:11 WBC 11.4 H (3.8-10.6) k/uL RBC 4.08 (3.80-5.40) m/uL Hgb 12.9 (11.4-16.0) gm/dL Hct 36.0 (34.0-46.0) % MCV 88.2 (80.0-100.0) fL MCH 31.6 (25.0-35.0) pg MCHC 35.9 (31.0-37.0) g/dL RDW 13.2 (11.5-15.5) % Plt Count 130 L (150-450) k/uL MPV 9.7 Neutrophils % 91 % Lymphocytes % 5 % Monocytes % 2 % Eosinophils % 1 % Basophils % 0 % Neutrophils # 10.4 H (1.3-7.7) k/uL Lymphocytes # 0.6 L (1.0-4.8) k/uL Monocytes # 0.3 (0-1.0) k/uL Eosinophils # 0.1 (0-0.7) k/uL Basophils # 0.0 (0-0.2) k/uL Sodium 134 L (137-145) mmol/L Potassium 3.9 (3.5-5.1) mmol/L Chloride 101 (98-107) mmol/L Carbon Dioxide 22 (22-30) mmol/L Anion Gap 11 mmol/L BUN 10 (7-17) mg/dL Creatinine 0.32 L (0.52-1.04) mg/dL Est GFR (CKD-EPI)AfAm >90 (>60 ml/min/1.73 sqM) Est GFR (CKD-EPI)NonAf >90 (>60 ml/min/1.73 sqM) Glucose 120 H (74-99) mg/dL Calcium 9.2 (8.4-10.2) mg/dL Total Bilirubin 0.7 (0.2-1.3) mg/dL AST 30 (14-36) U/L ALT 41 H (4-34) U/L Alkaline Phosphatase 79 (38-126) U/L Total Protein 6.8 (6.3-8.2) g/dL Albumin 3.8 (3.5-5.0) g/dL Lipase 43 (23-300) U/L Urine Color Urine Appearance (Clear) Urine pH (5.0-8.0) Ur Specific [place] (1.001-1.035) Urine Protein (Negative) Urine Glucose (UA) (Negative) Urine Ketones (Negative) Urine Blood (Negative) Urine Nitrite (Negative) Urine Bilirubin (Negative) Urine Urobilinogen (<2.0) mg/dL Ur Leukocyte Esterase (Negative) Urine RBC (0-5) /hpf Urine WBC (0-5) /hpf Ur Squamous Epith Cells (0-4) /hpf Amorphous Sediment (None) /hpf Urine Bacteria (None) /hpf Urine Mucus (None) /hpf Acetone, Qual Negative (Negative) 06/02/21 Range/Units 20:15 WBC (3.8-10.6) k/uL RBC (3.80-5.40) m/uL Hgb (11.4-16.0) gm/dL Hct (34.0-46.0) % MCV (80.0-100.0) fL MCH (25.0-35.0) pg MCHC (31.0-37.0) g/dL RDW (11.5-15.5) % Plt Count (150-450) k/uL MPV Neutrophils % % Lymphocytes % % Monocytes % % Eosinophils % % Basophils % % Neutrophils # (1.3-7.7) k/uL Lymphocytes # (1.0-4.8) k/uL Monocytes # (0-1.0) k/uL Eosinophils # (0-0.7) k/uL Basophils # (0-0.2) k/uL Sodium (137-145) mmol/L Potassium (3.5-5.1) mmol/L Chloride (98-107) mmol/L Carbon Dioxide (22-30) mmol/L Anion Gap mmol/L BUN (7-17) mg/dL Creatinine (0.52-1.04) mg/dL Est GFR (CKD-EPI)AfAm (>60 ml/min/1.73 sqM) Est GFR (CKD-EPI)NonAf (>60 ml/min/1.73 sqM) Glucose (74-99) mg/dL Calcium (8.4-10.2) mg/dL Total Bilirubin (0.2-1.3) mg/dL AST (14-36) U/L ALT (4-34) U/L Alkaline Phosphatase (38-126) U/L Total Protein (6.3-8.2) g/dL Albumin (3.5-5.0) g/dL Lipase (23-300) U/L Urine Color Yellow Urine Appearance Cloudy H (Clear) Urine pH 6.5 (5.0-8.0) Ur Specific [place] 1.019 (1.001-1.035) Urine Protein Trace H (Negative) Urine Glucose (UA) Negative (Negative) Urine Ketones 4+ H (Negative) Urine Blood Negative (Negative) Urine Nitrite Negative (Negative) Urine Bilirubin Negative (Negative) Urine Urobilinogen <2.0 (<2.0) mg/dL Ur Leukocyte Esterase Trace H (Negative) Urine RBC 3 (0-5) /hpf Urine WBC 8 H (0-5) /hpf Ur Squamous Epith Cells 5 H (0-4) /hpf Amorphous Sediment Rare H (None) /hpf Urine Bacteria Few H (None) /hpf Urine Mucus Few H (None) /hpf Acetone, Qual (Negative) Disposition Clinical Impression: Hyperemesis gravidarum Disposition: ADMITTED IP TO THIS [facility] Condition: Stable Referrals: None,Stated [Primary Care Provider] - 1-2 days
[2021-06-02] MEDS ORDERED: ONDANSETRON 4 MG/2 ML VIAL IVP STA (19:57)
[2021-06-02] MEDS ORDERED: ACETAMINOPHEN TAB 325 MG TAB PO STA (19:57)
[2021-06-02 20:42] LABS: Amorphous Sediment,Urine Rare /hpf; Appearance,Urine Cloudy (Clear); Bacteria,Urine Few /hpf; Bilirubin,Urine Negative (Negative); Blood,Urine Negative (Negative); Color,Urine Yellow; Glucose,Urine (UA) Negative (Negative); Ketones,Urine 4+ (Negative); Leukocyte Esterase,Urine Trace (Negative); Mucus,Urine Few /hpf; Nitrite,Urine Negative (Negative); PH, Urine 6.5 (5.0-8.0); Protein,Urine Trace (Negative); RBC,Urine 3 /hpf (0-5); Specific Gravity,Urine 1.019 (1.001-1.035); Squamous Epithelial Cell,Urine 5 /hpf (0-4); Urobilinogen,Urine <2.0 mg/dL (<2.0); WBC,Urine 8 /hpf (0-5)
[2021-06-02] MEDS ORDERED: DEXTROSE 5%-0.9% NACL 1,000 ML IV SCH (21:00)
[2021-06-02] MEDS ORDERED: NALOXONE 0.4 MG/ML 1 ML VIAL IV PRN (21:17)
[2021-06-02] MEDS ORDERED: ONDANSETRON 4 MG/2 ML VIAL IVP PRN (22:05)
[2021-06-02] MEDS ORDERED: METOCLOPRAMIDE 5 MG/ML 2 ML VIAL IVP PRN (22:05)
[2021-06-02] MEDS ORDERED: ACETAMINOPHEN TAB 325 MG TAB PO PRN (22:05)
--- NOTE | 2021-06-02 22:27 | US ---
EXAMINATION TYPE: Transabdominal DATE OF EXAM: 06/02/2021 10:05 PM COMPARISON: NONE CLINICAL HISTORY: eval . EXAM PERFORMED: Transabdominal (TA) EXAM MEASUREMENTS: GESTATIONAL AGE / DATING Physician Established: (11 weeks/3 days) EDC: 12/19/2021 Dates by LMP: LMP unknown Dates by First Scan: No previous this is first scan Dates by Current Scan for: (11 weeks/4 days) EDC: 12/18/2021 MATERNAL ANATOMY Uterus: 14.9 x 8.7 x 10.8cm Right Ovary: 3.3 x 1.6 x 1.6cm Left Ovary: 3.5 x 1.5 x 1.7cm Post CDS / Adnexa: wnl Presence of free fluid: no GESTATION / SURVEY CRL: 4.8cm (11 weeks/4 days) Yolk Sac (normal less than 6mm): not seen Heart Rate: 157 bpm Rhythm: Normal IUP: Viable IUP IMPRESSION: The ultrasound gestational age is 11 weeks and 4 days. No complicating process seen.
[2021-06-02 22:38] VITALS: PULSE 56
[2021-06-02] MEDS: LACTATED RINGERS 1,000 ML IV SCH (22:44)
[2021-06-02 22:48] LABS: Amphetamine Screen,Urine Not Detected (NotDetected); Barbiturate Screen,Urine Not Detected (NotDetected); Benzodiazepines Screen,Urine Not Detected (NotDetected); Cocaine Screen,Urine Not Detected (NotDetected); Methadone Screen, Urine Not Detected (NotDetected); Opiate Screen,Urine Not Detected (NotDetected); Oxycodone Screen, Urine Not Detected (NotDetected); Phencyclidine Screen,Urine Not Detected (NotDetected); Tricyclic Antidepressant,Urine Not Detected (NotDetected); Urn Cannabinoid Scrn Detected (NotDetected)
[2021-06-03] MEDS: diphenhydrAMINE 50 MG/ML 1 ML VIAL IVP SCH ×2 (00:07→06:21)
[2021-06-03 06:03] LABS: Basophils % (A) 0 %; Eosinophils % (A) 0 %; HCT 35.9 % (34.0-46.0); HGB 12.3 gm/dL (11.4-16.0); Lymphocytes # (A) 0.7 k/uL (1.0-4.8); Lymphocytes % (A) 5 %; MCH 30.9 pg (25.0-35.0); MCHC 34.1 g/dL (31.0-37.0); MCV 90.4 fL (80.0-100.0); Monocytes # (A) 0.4 k/uL (0-1.0); Monocytes % (A) 3 %; Neutrophils # (A) 11.5 k/uL (1.3-7.7); Neutrophils % (A) 91 %; Platelet Count 129 k/uL (150-450); RBC 3.98 m/uL (3.80-5.40); RDW 13.3 % (11.5-15.5); WBC 12.7 k/uL (3.8-10.6)
[2021-06-03 06:20] LABS: Albumin 3.5 g/dL (3.5-5.0); Total Protein 6.3 g/dL (6.3-8.2)
[2021-06-03] MEDS: LACTATED RINGERS 1,000 ML IV SCH (06:21)
--- NOTE | 2021-06-03 06:37 | P.HPOB ---
History of Present Illness H&P Date: 06/03/21 Chief Complaint: Nausea vomiting of This patient is a 30-year-old 3 para 2 female estimated gestational age 11 weeks who's care is per a physician [facility] who presents to this hospital with complaints of nausea vomiting and inability to keep anything down. Patient states that her 2 previous pregnancies she did not have any of these problems however in the interim has started smoking marijuana recreationally. She indicates that she stopped several weeks ago and began having severe nausea and vomiting. Patient initially went to [facility] however she was told there was a two-hour wait time and therefore came to [facility]. Patient's past medical history is significant for chronic nausea and vomiting that has been evaluated and has subsequently resulted and a cholecystectomy and appendectomy. Patient also has a history of mild thrombocytopenia. Review of Systems Genitourinary: Reports Menstruation: Reports amenorrhea Past Medical History Past Medical History: Osteoarthritis (OA) Additional Past Medical History / Comment(s): [place] Syndrome; thrombocytopenia History of Any Multi-Drug Resistant Organisms: None Reported Past Surgical History: Appendectomy, Section, Cholecystectomy, Orthopedic Surgery Additional Past Surgical History / Comment(s): Right knee surgery. Past Anesthesia/Blood Transfusion Reactions: No Reported Reaction Past Psychological History: No Psychological Hx Reported Smoking Status: Former smoker Past Alcohol Use History: Occasional Additional Past Alcohol Use History / Comment(s): "Smoked here and there when drinking, it's been a long time." Past Drug Use History: Marijuana Additional Drug Use History / Comment(s): Occasionally uses Marijuana - Past Family History Mother Family Medical History: No Reported History Medications and Allergies Home Medications Medication Instructions Recorded Confirmed Type No Known Home Medications 06/02/21 06/02/21 History Allergies Allergy/AdvReac Type Severity Reaction Status Date / Time No Known Allergies Allergy Verified 06/02/21 21:24 Exam Vital Signs Temp Pulse Pulse Resp BP BP Pulse Ox 06/02/21 22:30 97.8 F 56 L 16 122/70 100 06/02/21 21:53 98.2 F 54 L 18 136/80 97 06/02/21 20:23 98.2 F 51 L 18 137/76 97 06/02/21 18:00 16 06/02/21 17:48 16 06/02/21 16:45 97.3 F L 66 16 127/77 99 Intake and Output 06/02/21 06/02/21 06/03/21 14:59 22:59 06:59 Output Total 500 Balance -500 Output: Emesis 500 Other: Weight 51.71 kg Results Result Diagrams: 06/03/21 05:33 06/02/21 17:11 Abnormal Lab Results - Last 24 Hours (Table) 06/02/21 06/02/21 06/02/21 Range/Units 17:11 17:11 20:15 WBC 11.4 H (3.8-10.6) k/uL Plt Count 130 L (150-450) k/uL Neutrophils # 10.4 H (1.3-7.7) k/uL Lymphocytes # 0.6 L (1.0-4.8) k/uL Sodium 134 L (137-145) mmol/L Creatinine 0.32 L (0.52-1.04) mg/dL Glucose 120 H (74-99) mg/dL ALT 41 H (4-34) U/L Urine Appearance Cloudy H (Clear) Urine Protein Trace H (Negative) Urine Ketones 4+ H (Negative) Ur Leukocyte Esterase Trace H (Negative) Urine WBC 8 H (0-5) /hpf Ur Squamous Epith Cells 5 H (0-4) /hpf Amorphous Sediment Rare H (None) /hpf Urine Bacteria Few H (None) /hpf Urine Mucus Few H (None) /hpf U Marijuana (THC) Screen (NotDetected) 06/02/21 06/03/21 06/03/21 Range/Units 20:15 05:33 05:33 WBC 12.7 H (3.8-10.6) k/uL Plt Count 129 L (150-450) k/uL Neutrophils # 11.5 H (1.3-7.7) k/uL Lymphocytes # 0.7 L (1.0-4.8) k/uL Sodium (137-145) mmol/L Creatinine (0.52-1.04) mg/dL Glucose (74-99) mg/dL ALT 40 H (4-34) U/L Urine Appearance (Clear) Urine Protein (Negative) Urine Ketones (Negative) Ur Leukocyte Esterase (Negative) Urine WBC (0-5) /hpf Ur Squamous Epith Cells (0-4) /hpf Amorphous Sediment (None) /hpf Urine Bacteria (None) /hpf Urine Mucus (None) /hpf U Marijuana (THC) Screen Detected H (NotDetected) Assessment and Plan Assessment: This is a 30-year-old 3 para 2 female 11 weeks gestation admitted last evening with nausea vomiting in most likely associated with cannabinoid withdrawal/reduction. Patient is feeling better this morning and is stable for discharge home. Patient will follow up with her primary system dispatcher at [facility]. I did welcome the patient here at our Hospital however she understands her physician does not have admitting privileges here is her best interest/care to go to [facility]. I also had a long discussion with the patient about the effects of marijuana use in and on her unborn fetus. I advised her to stop. (1) Cannabinoid hyperemesis syndrome Current Visit: Yes Status: Acute Code(s): R11.2 - NAUSEA WITH VOMITING, UNSPECIFIED; F12.90 - CANNABIS USE, UNSPECIFIED, UNCOMPLICATED SNOMED Code(s): 317797223 (2) Thrombocytopenia Current Visit: Yes Status: Chronic Code(s): D69.6 - THROMBOCYTOPENIA, UNSPECIFIED SNOMED Code(s): 385593050 (3) Hyperemesis gravidarum Current Visit: Yes Status: Acute Code(s): O21.0 - MILD HYPEREMESIS GRAVIDARUM SNOMED Code(s): 29883487
--- NOTE | 2021-06-03 06:41 | P.DS ---
Providers Date of admission: 06/02/21 21:17 Expected date of discharge: 06/03/21 Attending physician: Jean Iqbal Primary care physician: Stated None - Discharge Diagnosis(es) (1) Cannabinoid hyperemesis syndrome Current Visit: Yes Status: Acute (2) Thrombocytopenia Current Visit: Yes Status: Chronic (3) Hyperemesis gravidarum Current Visit: Yes Status: Acute Hospital Course: Please see dictated H&P for intimate details of this patient's admission. Brief summary this is a 30-year-old 3 para 2 female 11 weeks gestation admitted for hyperemesis. Patient is admitted given IV hydration and antiemetics and sleeps overnight. The morning patient's felt be stable for discharge home follow up with her primary extrusion press operator. Patient Condition at Discharge: Good Plan - Discharge Summary Discharge Rx Participant: Yes New Discharge Prescriptions: New Ondansetron HCl [Zofran] 4 mg PO Q8H PRN #12 tab PRN Reason: Nausea And Vomiting Discharge Medication List Ondansetron HCl [Zofran] 4 mg PO Q8H PRN #12 tab 06/03/21 [Rx] Follow up Appointment(s)/Referral(s): None,Stated [Primary Care Provider] - 3 Days (Please follow up with your primary extrusion press operator at [facility] this week.) Patient Instructions/Handouts: Hyperemesis Gravidarum (DC) Activity/Diet/Wound Care/Special Instructions: Clear liquids as tolerated. Please contact her physician today for a follow-up appointment this week. Discharge Disposition: HOME SELF-CARE
[2021-06-03 08:04] VITALS: BP 94/58; RESP 14; TEMP 98.7
== END 2021-06-03 09:53 | disposition home or self-care (01) ==
LOC: EC 16:21 → 4FBP 21:17
PROVIDERS: ADMIT Obstetrics & Gynecology; ATTEND Obstetrics & Gynecology
DX: O21.0 Mild hyperemesis gravidarum (principal); O99.321 Drug use complicating pregnancy, first trimester; F12.90 Cannabis use, unspecified, uncomplicated; O99.111 Other diseases of the blood and blood-forming organs and certain disorders involving the immune mechanism complicating pregnancy, first trimester; D69.6 Thrombocytopenia, unspecified; Z3A.11 11 weeks gestation of pregnancy; E80.4 Gilbert syndrome; M19.90 Unspecified osteoarthritis, unspecified site; Z90.49 Acquired absence of other specified parts of digestive tract; Z98.890 Other specified postprocedural states; Z87.891 Personal history of nicotine dependence
CPT/HCPCS: 96376 ×2; 96361 ×2; 96374; 96375; 99285; 36415; 93005; 80053; 80076; 82009; 83690; 85025 ×2; 81001; 81025; 84703; 84702; 80306; 76801; G0378 ×2; J1200 ×2; J2765; J2405 ×2

== ENCOUNTER 2023-02-14 07:00 | Emergency (ER) | payer OTHER ==
[2023-02-14] MEDS ORDERED: methylPREDNISolone SOD SUCCI 125 MG/2 ML VIAL IV STA (07:49)
--- NOTE | 2023-02-14 07:51 | ED ---
General Adult HPI - General Chief complaint: Shortness of Breath Stated complaint: Painful joints/Gi issues Time Seen by Provider: 02/14/23 07:05 Source: patient Mode of arrival: wheelchair Limitations: no limitations - History of Present Illness Initial comments: 32-year-old female with past medical history of Gilbert syndrome who presents emergency department for multiple complaints. Reports that her constitution of symptoms has been present for the past 4 years. She has been to several emergency departments and urgent care for similar complaint. States that her symptoms involve difficulty breathing and extreme joint pain. Reports that she has back pain and chest pain. She has intermittent rashes and pruritus. She will have discoloration to her digits which is transient. She is extremely tearful and anxious. Also reports to nausea with inability to hold down any foods. She reports that she has symptoms similar to one of her friends and believes that she has lupus. She is scheduled to see a cardiac monitor on February 26. She denies any fevers. No history of cardiac disease. Denies concern for . No other alleviating, precipitating or modifying factors - Related Data Previous Rx's Medication Instructions Recorded ondansetron HCL [Zofran] 4 mg PO Q8H PRN #12 tab 06/03/21 Cephalexin [Keflex] 500 mg PO BID #14 cap 02/14/23 Ondansetron Odt [Zofran Odt] 4 mg PO Q8HR PRN #30 tab 02/14/23 Meloxicam [Mobic] 15 mg PO DAILY #15 tablet 02/15/23 Promethazine [Phenergan] 25 mg PO Q6HR PRN #20 tablet 02/15/23 Allergies Allergy/AdvReac Type Severity Reaction Status Date / Time No Known Allergies Allergy Verified 02/14/23 22:48 Review of Systems ROS Statement: Those systems with pertinent positive or pertinent negative responses have been documented in the HPI. ROS Other: All systems not noted in ROS Statement are negative. Past Medical History Past Medical History: Osteoarthritis (OA) Additional Past Medical History / Comment(s): [place] Syndrome; thrombocytopenia History of Any Multi-Drug Resistant Organisms: None Reported Past Surgical History: Appendectomy, Section, Cholecystectomy, Orthopedic Surgery Additional Past Surgical History / Comment(s): Right knee surgery. Past Anesthesia/Blood Transfusion Reactions: No Reported Reaction Past Psychological History: No Psychological Hx Reported Smoking Status: Former smoker Past Alcohol Use History: Occasional Past Drug Use History: Marijuana - Past Family History Mother Family Medical History: No Reported History General Exam Limitations: no limitations General appearance: alert, in no apparent distress, anxious Head exam: Present: atraumatic, normocephalic, normal inspection Eye exam: Present: normal appearance, PERRL, EOMI. Absent: scleral icterus, conjunctival injection, periorbital swelling ENT exam: Present: normal exam, mucous membranes moist Neck exam: Present: normal inspection. Absent: tenderness, meningismus, lymphadenopathy Respiratory exam: Present: normal lung sounds bilaterally. Absent: respiratory distress, wheezes, rales, rhonchi, stridor Cardiovascular Exam: Present: regular rate, normal rhythm, normal heart sounds. Absent: systolic murmur, diastolic murmur, rubs, gallop, clicks GI/Abdominal exam: Present: soft, normal bowel sounds. Absent: distended, tenderness, guarding, rebound, rigid Extremities exam: Present: normal inspection, full ROM, normal capillary refill. Absent: tenderness, pedal edema, joint swelling, calf tenderness Back exam: Present: normal inspection Neurological exam: Present: alert, oriented X3, CN II-XII intact Psychiatric exam: Present: normal affect, normal mood Skin exam: Present: warm, dry, intact, normal color. Absent: rash Course Vital Signs 02/14/23 02/14/23 02/14/23 07:02 08:40 09:50 Temperature 97.9 F 97.2 F L Pulse Rate 76 65 66 Respiratory 20 16 16 Rate Blood Pressure 135/91 142/87 126/104 O2 Sat by Pulse 99 100 100 Oximetry 02/14/23 11:15 Temperature 97.4 F L Pulse Rate 71 Respiratory 16 Rate Blood Pressure 133/82 O2 Sat by Pulse 98 Oximetry - Reevaluation(s) Reevaluation #1: Calling lab to see why results of T4 are not back yet 02/14/23 09:57 EKG Findings - EKG Comments: EKG Findings:: EKG demonstrates sinus bradycardia with a rate of 55. MS 137. QRS 107. QTC of 407. No acute ST segment elevations or depressions Medical Decision Making - Medical Decision Making Was pt. sent in by a medical professional or institution (, PA, TOMBSTONE ERECTOR, urgent care, hospital, or fpc...) When possible be specific @ -No Did you speak to anyone other than the patient for history (EMS, parent, family, police, friend...)? What history was obtained from this source @ -No Did you review nursing and triage notes (agree or disagree)? Why? @ -I reviewed and agree with nursing and triage notes Were old charts reviewed (outside hosp., previous admission, EMS record, old EKG, old radiological studies, urgent care reports/EKG's, fpc records)? Report findings @ -No Differential Diagnosis (chest pain, altered mental status, abdominal pain women, abdominal pain men, vaginal bleeding, weakness, fever, dyspnea, syncope, headache, dizziness, GI bleed, back pain, seizure, CVA, palpatations, mental health, musculoskeletal)? @ -anxiety, , hyperemesis, cyclic vomiting, thyroid disorder, hung EKG interpreted by me (3pts min.). @ -Yes X-rays interpreted by me (1pt min.). @ -Not done CT interpreted by me (1pt min.). @ -Not done U/S interpreted by me (1pt. min.). @ -Not done What testing was considered but not performed or refused? (CT, X-rays, U/S, labs)? Why? @ -None What meds were considered but not given or refused? Why? @ -None Did you discuss the management of the patient with other professionals (prof calvert i.eAlin Salter, PA, TOMBSTONE ERECTOR, lab, RT, psych nurse, health social work professor, grouter helper, teacher, chief medical officer, pillowcase turner)? Give summary @ -No Was smoking cessation discussed for >3mins.? @ -No Was critical care preformed (if so, how long)? @ -No Were there social determinants of health that impacted care today? How? (Homelessness, low income, unemployed, alcoholism, drug addiction, transportat ion, low edu. Level, literacy, decrease access to med. care, correction, rehab)? @ -Transportation issues Was there de-escalation of care discussed even if they declined (Discuss DNR or withdrawal of care, Hospice)? DNR status @ -No What co-morbidities impacted this encounter? (DM, HTN, Smoking, COPD, CAD, Cancer, CVA, ARF, Chemo, Hep., AIDS, mental health diagnosis, sleep apnea, morbid obesity)? @ -None Was patient admitted / discharged? Hospital course, mention meds given and route, prescriptions, significant lab abnormalities, going to OR and other pertinent info. @ -Upon arrival patient is placed into room 7. A thorough history and physical exam was performed. IV access established laboratory studies were conducted. Patient is dehydrated and therefore started on IV fluids. Potassium 3.4. Sodium 133. TSH is low at 0.355. T4 2.26. Urinalysis does demonstrate rare bacteria. Patient is requesting treatment over urine culture. She will be started on Keflex. I did discuss her elevated thyroid studies for which she will need to see her primary care doctor. She is asking for recommendations for a new primary care doctor therefore she is given several referrals. Patient will need to follow up with rheumatology for her ongoing condition. She was given a dose of steroids in the emergency department however discussed apprehension to start her on anything and she does have an upcoming appointment with rheumatology. Patient understood this. She was given a prescription for Zofran and Keflex. Take the medications as directed. Follow up with her doctor return for any new or worsening symptoms. Patient was agreeable to treatment plan she was discharged home in stable condition Undiagnosed new problem with uncertain prognosis? @ -yes Drug Therapy requiring intensive monitoring for toxicity (Heparin, Nitro, Insulin, Cardizem)? @ -No Were any procedures done? @ -No Diagnosis/symptom? @ -nausea and vomiting, epigastric pain Acute, or Chronic, or Acute on Chronic? @ -acute on chronic Uncomplicated (without systemic symptoms) or Complicated (systemic symptoms)? @ -complicated Side effects of treatment? @ -No Exacerbation, Progression, or Severe Exacerbation? @ -yes Poses a threat to life or bodily function? How? (Chest pain, [place], [place], pneumonia, PE, COPD, DKA, ARF, appy, cholecystitis, CVA, Diverticulitis, Homicidal, Suicidal, threat to staff... and all critical care pts) @ -no - Lab Data Result diagrams: 02/14/23 08:15 02/14/23 08:15 Lab Results 02/14/23 02/14/23 02/14/23 Range/Units 08:15 08:15 08:15 WBC 8.9 (3.8-10.6) k/uL RBC 5.30 (3.80-5.40) m/uL Hgb 15.7 (11.4-16.0) gm/dL Hct 44.4 (34.0-46.0) % MCV 83.7 (80.0-100.0) fL MCH 29.6 (25.0-35.0) pg MCHC 35.3 (31.0-37.0) g/dL RDW 13.4 (11.5-15.5) % Plt Count 177 (150-450) k/uL MPV 10.1 Neutrophils % 81 % Lymphocytes % 10 % Monocytes % 7 % Eosinophils % 1 % Basophils % 0 % Neutrophils # 7.3 (1.3-7.7) k/uL Lymphocytes # 0.9 L (1.0-4.8) k/uL Monocytes # 0.6 (0-1.0) k/uL Eosinophils # 0.0 (0-0.7) k/uL Basophils # 0.0 (0-0.2) k/uL Sodium 133 L (137-145) mmol/L Potassium 3.4 L (3.5-5.1) mmol/L Chloride 90 L (98-107) mmol/L Carbon Dioxide 28 (22-30) mmol/L Anion Gap 15 mmol/L BUN 16 (7-17) mg/dL Creatinine 0.51 L (0.52-1.04) mg/dL Est GFR (CKD-EPI)AfAm >90 (>60 ml/min/1.73 sqM) Est GFR (CKD-EPI)NonAf >90 (>60 ml/min/1.73 sqM) Glucose 95 (74-99) mg/dL Plasma Lactic Acid Stanton 1.3 (0.7-2.0) mmol/L Calcium 9.6 (8.4-10.2) mg/dL Magnesium 2.0 (1.6-2.3) mg/dL Total Bilirubin 6.1 H (0.2-1.3) mg/dL AST 19 (14-36) U/L ALT 23 (4-34) U/L Alkaline Phosphatase 114 (38-126) U/L Troponin I (0.000-0.034) ng/mL Total Protein 8.5 H (6.3-8.2) g/dL Albumin 5.1 H (3.5-5.0) g/dL TSH 0.355 L (0.465-4.680) mIU/L Free T4 2.26 H (0.78-2.19) ng/dL Urine Color Urine Appearance (Clear) Urine pH (5.0-8.0) Ur Specific [place] (1.001-1.035) Urine Protein (Negative) Urine Glucose (UA) (Negative) Urine Ketones (Negative) Urine Blood (Negative) Urine Nitrite (Negative) Urine Bilirubin (Negative) Urine Urobilinogen (<2.0) mg/dL Ur Leukocyte Esterase (Negative) Urine RBC (0-5) /hpf Urine WBC (0-5) /hpf Ur Squamous Epith Cells (0-4) /hpf Amorphous Sediment (None) /hpf Urine Bacteria (None) /hpf Urine Mucus (None) /hpf Urine HCG, Qual (Not Detectd) 02/14/23 02/14/23 02/14/23 Range/Units 08:15 08:15 08:15 WBC (3.8-10.6) k/uL RBC (3.80-5.40) m/uL Hgb (11.4-16.0) gm/dL Hct (34.0-46.0) % MCV (80.0-100.0) fL MCH (25.0-35.0) pg MCHC (31.0-37.0) g/dL RDW (11.5-15.5) % Plt Count (150-450) k/uL MPV Neutrophils % % Lymphocytes % % Monocytes % % Eosinophils % % Basophils % % Neutrophils # (1.3-7.7) k/uL Lymphocytes # (1.0-4.8) k/uL Monocytes # (0-1.0) k/uL Eosinophils # (0-0.7) k/uL Basophils # (0-0.2) k/uL Sodium (137-145) mmol/L Potassium (3.5-5.1) mmol/L Chloride (98-107) mmol/L Carbon Dioxide (22-30) mmol/L Anion Gap mmol/L BUN (7-17) mg/dL Creatinine (0.52-1.04) mg/dL Est GFR (CKD-EPI)AfAm (>60 ml/min/1.73 sqM) Est GFR (CKD-EPI)NonAf (>60 ml/min/1.73 sqM) Glucose (74-99) mg/dL Plasma Lactic Acid Stanton (0.7-2.0) mmol/L Calcium (8.4-10.2) mg/dL Magnesium (1.6-2.3) mg/dL Total Bilirubin (0.2-1.3) mg/dL AST (14-36) U/L ALT (4-34) U/L Alkaline Phosphatase (38-126) U/L Troponin I <0.012 (0.000-0.034) ng/mL Total Protein (6.3-8.2) g/dL Albumin (3.5-5.0) g/dL TSH (0.465-4.680) mIU/L Free T4 (0.78-2.19) ng/dL Urine Color Yellow Urine Appearance Cloudy H (Clear) Urine pH 6.5 (5.0-8.0) Ur Specific [place] 1.017 (1.001-1.035) Urine Protein Trace H (Negative) Urine Glucose (UA) Negative (Negative) Urine Ketones 4+ H (Negative) Urine Blood Small H (Negative) Urine Nitrite Positive H (Negative) Urine Bilirubin Negative (Negative) Urine Urobilinogen 2.0 (<2.0) mg/dL Ur Leukocyte Esterase Small H (Negative) Urine RBC 1 (0-5) /hpf Urine WBC 7 H (0-5) /hpf Ur Squamous Epith Cells 5 H (0-4) /hpf Amorphous Sediment Few H (None) /hpf Urine Bacteria Rare H (None) /hpf Urine Mucus Occasional H (None) /hpf Urine HCG, Qual Not Detected (Not Detectd) Disposition Clinical Impression: Elevated bilirubin, Chest pain, Dyspnea, Hyperthyroidism Disposition: HOME SELF-CARE Condition: Stable Instructions (If sedation given, give patient instructions): Chest Pain (DC) Additional Instructions: You need to follow-up with rheumatology for your diagnosis - Dr. Fry is our cardiac monitor in [facility] I also recommend that you see a primary care or mains and service supervisor for your overactive thyroid Dr. Mullins - Endocrine Dr. Mendiola -Primary care Dr. Titus - Primary care [facility] - primary care Dr. Galvan - primary care Prescriptions: Cephalexin [Keflex] 500 mg PO BID #14 cap Ondansetron Odt [Zofran Odt] 4 mg PO Q8HR PRN #30 tab PRN Reason: Nausea Is patient prescribed a controlled substance at d/c from ED?: No Referrals: Renée Leonardo MD [Primary Care Provider] - 1-2 days Trudy Morejon MD [STAFF PHYSICIAN] - 1-2 days Patrick Mullins MD [REFERRING] - 1-2 days Tiffanie Galvan MD [REFERRING] - 1-2 days Chema Mendiola MD [STAFF PHYSICIAN] - 1-2 days [facility] [NON-STAFF] - 1-2 days Time of Disposition: 10:21
[2023-02-14] MEDS ORDERED: ONDANSETRON 4 MG/2 ML VIAL IVP STA (08:23)
[2023-02-14 08:41] VITALS: RESP 16
[2023-02-14] MEDS ORDERED: KETOROLAC 15 MG/ML 1 ML VIAL IVP STA (08:43)
[2023-02-14 08:47] LABS: Basophils % (A) 0 %; Eosinophils % (A) 1 %; HCT 44.4 % (34.0-46.0); HGB 15.7 gm/dL (11.4-16.0); Lymphocytes # (A) 0.9 k/uL (1.0-4.8); Lymphocytes % (A) 10 %; MCH 29.6 pg (25.0-35.0); MCHC 35.3 g/dL (31.0-37.0); MCV 83.7 fL (80.0-100.0); Mean Platelet Volume 10.1; Monocytes # (A) 0.6 k/uL (0-1.0); Monocytes % (A) 7 %; Neutrophils # (A) 7.3 k/uL (1.3-7.7); Neutrophils % (A) 81 %; Platelet Count 177 k/uL (150-450); RDW 13.4 % (11.5-15.5); WBC 8.9 k/uL (3.8-10.6)
[2023-02-14 08:49] LABS: ALT 23 U/L (4-34); AST 19 U/L (14-36); African American GFR (CKD) >90 (>60 ml/min/1.73 sqM); Albumin 5.1 g/dL (3.5-5.0); Alkaline Phosphatase 114 U/L (38-126); Anion Gap 15 mmol/L; Blood Urea Nitrogen 16 mg/dL (7-17); Calcium 9.6 mg/dL (8.4-10.2); Carbon Dioxide 28 mmol/L (22-30); Chloride 90 mmol/L (98-107); Glucose 95 mg/dL (74-99); Non-African American GFR(CKD) >90 (>60 ml/min/1.73 sqM); Potassium 3.4 mmol/L (3.5-5.1); Sodium 133 mmol/L (137-145); Total Bilirubin 6.1 mg/dL (0.2-1.3); Total Protein 8.5 g/dL (6.3-8.2)
[2023-02-14] MEDS ORDERED: SODIUM CHLORIDE 0.9% 1,000 ML IV ONE (09:25)
[2023-02-14 09:58] LABS: T4, Free (Free Thyroxine) 2.26 ng/dL (0.78-2.19)
[2023-02-14 10:11] LABS: Amorphous Sediment,Urine Few /hpf; Appearance,Urine Cloudy (Clear); Bacteria,Urine Rare /hpf; Bilirubin,Urine Negative (Negative); Blood,Urine Small (Negative); Color,Urine Yellow; Glucose,Urine (UA) Negative (Negative); Ketones,Urine 4+ (Negative); Leukocyte Esterase,Urine Small (Negative); Mucus,Urine Occasional /hpf; Nitrite,Urine Positive (Negative); PH, Urine 6.5 (5.0-8.0); Protein,Urine Trace (Negative); RBC,Urine 1 /hpf (0-5); Specific Gravity,Urine 1.017 (1.001-1.035); Squamous Epithelial Cell,Urine 5 /hpf (0-4); WBC,Urine 7 /hpf (0-5)
[2023-02-14 11:18] VITALS: BP 133/82; PULSE 71; TEMP 97.4
== END 2023-02-14 11:18 | disposition home or self-care (01) ==
LOC: EC 07:00
DX: E80.7 Disorder of bilirubin metabolism, unspecified (principal); R07.9 Chest pain, unspecified; R06.00 Dyspnea, unspecified; E05.90 Thyrotoxicosis, unspecified without thyrotoxic crisis or storm; M19.90 Unspecified osteoarthritis, unspecified site; Z87.891 Personal history of nicotine dependence; F12.90 Cannabis use, unspecified, uncomplicated
CPT/HCPCS: 36415; 93005; 84439; 80053; 84443; 83605; 83735; 84484; 85025; 81001; 81025; 99285; 96374; 96375 ×2; 96361; J2930; J2405; J1885

== ENCOUNTER 2023-02-14 22:26 | Emergency (ER) | payer OTHER ==
[2023-02-14 22:48] VITALS: TEMP 98.6
[2023-02-14] MEDS ORDERED: KETOROLAC 15 MG/ML 1 ML VIAL IVP STA (23:01)
[2023-02-14] MEDS ORDERED: METOCLOPRAMIDE 5 MG/ML 2 ML VIAL IVP STA (23:01)
[2023-02-14] MEDS ORDERED: SODIUM CHLORIDE 0.9% 1,000 ML IV STA (23:01)
--- NOTE | 2023-02-14 23:09 | ED ---
Recheck HPI - General Chief Complaint: Recheck/Abnormal Lab/Rx Stated Complaint: Back pain, vomiting, abd pain Time Seen by Provider: 02/14/23 22:52 Source: patient, RN notes reviewed Mode of arrival: ambulatory Limitations: no limitations - History of Present Illness Initial Comments: This is a 32-year-old female who presents to the emergency department for multiple complaints. She was seen here earlier today for the same symptoms, including chest pain, shortness of breath, vomiting, shoulder pain, and back pain. Patient continues to believe that she has lupus. States that since discharge earlier today, her symptoms in terms of the chest pain and shortness of breath have gotten worse. She was discharged with a prescription for Zofran, but states that it is not effectively controlling her nausea. She was told before discharge earlier today that she will need to see a manager document as well as an research technologist for an overactive thyroid. Denies any fevers, chills, sore throat, cough, abdominal pain, diarrhea, or headaches. - Related Data Previous Rx's Medication Instructions Recorded ondansetron HCL [Zofran] 4 mg PO Q8H PRN #12 tab 06/03/21 Cephalexin [Keflex] 500 mg PO BID #14 cap 02/14/23 Ondansetron Odt [Zofran Odt] 4 mg PO Q8HR PRN #30 tab 02/14/23 Meloxicam [Mobic] 15 mg PO DAILY #15 tablet 02/15/23 Promethazine [Phenergan] 25 mg PO Q6HR PRN #20 tablet 02/15/23 Allergies Allergy/AdvReac Type Severity Reaction Status Date / Time No Known Allergies Allergy Verified 02/14/23 22:48 Review of Systems ROS Statement: Those systems with pertinent positive or pertinent negative responses have been documented in the HPI. ROS Other: All systems not noted in ROS Statement are negative. 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 Past Anesthesia/Blood Transfusion Reactions: No Reported Reaction Past Psychological History: No Psychological Hx Reported Smoking Status: Former smoker Past Alcohol Use History: Occasional Past Drug Use History: Marijuana - Past Family History Mother Family Medical History: No Reported History General Exam Limitations: no limitations General appearance: alert, anxious Head exam: Present: atraumatic, normocephalic, normal inspection Respiratory exam: Present: normal lung sounds bilaterally. Absent: respiratory distress, wheezes, rales, rhonchi, stridor Cardiovascular Exam: Present: regular rate, normal rhythm, normal heart sounds. Absent: systolic murmur, diastolic murmur, rubs, gallop, clicks GI/Abdominal exam: Present: soft, normal bowel sounds. Absent: distended, tenderness, guarding, rebound, rigid Neurological exam: Present: alert, oriented X3, CN II-XII intact Psychiatric exam: Present: normal affect, normal mood Skin exam: Present: warm, dry, intact, normal color. Absent: rash Course Vital Signs 02/14/23 02/14/23 02/14/23 22:44 23:25 23:48 Temperature 98.6 F Pulse Rate 66 60 Respiratory 18 16 Rate Blood Pressure 93/61 146/80 146/80 O2 Sat by Pulse 98 100 99 Oximetry 02/15/23 02/15/23 02/15/23 00:00 01:00 02:00 Temperature Pulse Rate 89 Respiratory 16 Rate Blood Pressure 155/104 137/89 156/91 O2 Sat by Pulse 100 98 98 Oximetry Medical Decision Making - Medical Decision Making This is a 32-year-old female who presents to the emergency department for multiple complaints, including chest pain, shortness of breath, and back pain. Was pt. sent in by a medical professional or institution? @ -No Did you speak to anyone other than the patient for history? @ -No Did you review nursing and triage notes? @ -Yes, and I agree, it is accurate with regards to the patient's symptoms. Were old charts reviewed? @ -Lab work and EKG from earlier today. Differential Diagnosis? @ -Differential Chest Pain: Stable Angina, Unstable Angina, STEMI, NSTEMI Aortic Dissection, Pneumothorax, Musculoskeletal, Esophageal Spasm GERD, Cholecystitis, Pancreatitis, Zoster, this is not meant to be an all-inclusive list. -Differential Dyspnea: Coronary syndrome, arrhythmia, tamponade, asthma, COPD, pulmonary embolism, pn eumonia, pneumothorax, pulmonary effusion, anaphylaxis, diabetic ketoacidosis, flailed chest, pulmonary contusion, diaphragmatic rupture, anemia, neuromuscular, this is not meant to be an all-inclusive list. -Differential Back Pain: Strain, zoster, cauda equina syndrome, epidural abscess, vertebral osteomyelitis, discitis, fracture, subluxation, disc herniation, DJD, spinal stenosis, dissection, AAA, pancreatitis, peptic ulcer disease, pyelonephritis, kidney stone, this is not meant to be an all-inclusive list. X-rays interpreted by me (1pt min.)? @ -Chest x-ray obtained, my interpretation identifies no localized consolidations or infiltrates. What testing was considered but not performed? (CT, X-rays, U/S, labs)? Why? @ -None What meds were considered but not given? Why? @ -None Did you discuss the management of the patient with other professionals? @ -No Did you reconcile home meds? @ -No Was smoking cessation discussed for >3mins.? @ -No Was critical care preformed (if so, how long)? @ -No Were there social determinants of health that impacted care today? How? (Homelessness, low income, unemployed, alcoholism, drug addiction, transportation, low edu. Level, literacy, decrease access to med. care, care home, rehab)? @ -No Was there de-escalation of care discussed even if they declined? (Discuss DNR or withdrawal of care, Hospice)? @ -No What co-morbidities impacted this encounter? (DM, HTN, Smoking, COPD, CAD, Can cer, CVA, Hep., AIDS, mental health diagnosis, sleep apnea, morbid obesity)? @ -OA, Gilbert's syndrome Was patient admitted / discharged? @ -Discharged. Lab work obtained revealing minor leukocytosis. Findings also consistent with dehydration. Bilirubin is elevated secondary to the patient's history of Gilbert's syndrome. We did check additional lab work, including inflammatory markers, d-dimer, and troponin, all of which were negative. Hypokalemia was present and 40 mEq of K-dur was administered. She was initially given IV fluids, Toradol, and Reglan. States that this did not effectively manage her symptoms. She was subsequently given Dilaudid and Compazine, which she states was more effective. Prescriptions for Mobic and Phenergan provided with dosing instructions reviewed. She is advised to avoid any [id number] anti-inflammatories with the Mobic, however she is encouraged to take this with Tylenol. Advised alternating the Phenergan with Zofran if needed to adequately control the nausea and vomiting. She is otherwise instructed to follow-up with rheumatology and endocrinology for further management of ongoing symptoms. Undiagnosed new problem with uncertain prognosis? @ -None Drug Therapy requiring intensive monitoring for toxicity (Heparin, Nitro, Insulin, Cardizem)? @ -None Were any procedures done? @ -None Diagnosis/symptom? @ -Arthralgia Acute, or Chronic, or Acute on Chronic? @ -Chronic Uncomplicated (without systemic symptoms) or Complicated (systemic symptoms)? @ -Uncomplicated Side effects of treatment? @ -None Exacerbation, Progression, or Severe Exacerbation] @ -Progression Poses a threat to life or bodily function? @ -No Diagnosis/symptom? @ -Nausea and vomiting Acute, or Chronic, or Acute on Chronic? @ -Acute Uncomplicated (without systemic symptoms) or Complicated (systemic symptoms)? @ -Uncomplicated Side effects of treatment? @ -None Exacerbation, Progression, or Severe Exacerbation] @ -Not applicable Poses a threat to life or bodily function? @ -No Return precautions reviewed in depth, the patient is instructed to return to the emergency department with any new, worsening, or concerning symptoms. Patient verbalized understanding. This case was discussed in detail with the attending ED physician, Dr. Wolfe. Presentation, findings, and treatment plan discussed in detail as well. - Lab Data Result diagrams: 02/14/23 23:18 02/14/23 23:18 Lab Results 02/14/23 02/14/23 02/14/23 Range/Units 23:18 23:18 23:18 WBC 11.3 H (3.8-10.6) k/uL RBC 5.21 (3.80-5.40) m/uL Hgb 15.1 (11.4-16.0) gm/dL Hct 43.5 (34.0-46.0) % MCV 83.6 (80.0-100.0) fL MCH 28.9 (25.0-35.0) pg MCHC 34.6 (31.0-37.0) g/dL RDW 13.4 (11.5-15.5) % Plt Count 183 (150-450) k/uL MPV 10.0 Neutrophils % 79 % Lymphocytes % 11 % Monocytes % 8 % Eosinophils % 0 % Basophils % 0 % Neutrophils # 8.9 H (1.3-7.7) k/uL Lymphocytes # 1.2 (1.0-4.8) k/uL Monocytes # 1.0 (0-1.0) k/uL Eosinophils # 0.1 (0-0.7) k/uL Basophils # 0.0 (0-0.2) k/uL ESR 7 (0-20) mm/hr PT 10.9 (9.0-12.0) sec INR 1.0 (<1.2) APTT 21.6 L (22.0-30.0) sec D-Dimer 0.25 (<0.60) mg/L FEU Sodium 132 L (137-145) mmol/L Potassium 3.2 L (3.5-5.1) mmol/L Chloride 94 L (98-107) mmol/L Carbon Dioxide 26 (22-30) mmol/L Anion Gap 12 mmol/L BUN 17 (7-17) mg/dL Creatinine 0.61 (0.52-1.04) mg/dL Est GFR (CKD-EPI)AfAm >90 (>60 ml/min/1.73 sqM) Est GFR (CKD-EPI)NonAf >90 (>60 ml/min/1.73 sqM) Glucose 106 H (74-99) mg/dL Calcium 9.8 (8.4-10.2) mg/dL Total Bilirubin 5.5 H (0.2-1.3) mg/dL AST 17 (14-36) U/L ALT 21 (4-34) U/L Alkaline Phosphatase 113 (38-126) U/L Troponin I (0.000-0.034) ng/mL C-Reactive Protein <0.5 (<1.0) mg/dL Total Protein 8.5 H (6.3-8.2) g/dL Albumin 5.1 H (3.5-5.0) g/dL Amylase 50 (30-110) U/L Lipase 100 (23-300) U/L 02/14/ Range/Units 23:18 WBC (3.8-10.6) k/uL RBC (3.80-5.40) m/uL Hgb (11.4-16.0) gm/dL Hct (34.0-46.0) % MCV (80.0-100.0) fL MCH (25.0-35.0) pg MCHC (31.0-37.0) g/dL RDW (11.5-15.5) % Plt Count (150-450) k/uL MPV Neutrophils % % Lymphocytes % % Monocytes % % Eosinophils % % Basophils % % Neutrophils # (1.3-7.7) k/uL Lymphocytes # (1.0-4.8) k/uL Monocytes # (0-1.0) k/uL Eosinophils # (0-0.7) k/uL Basophils # (0-0.2) k/uL ESR (0-20) mm/hr PT (9.0-12.0) sec INR (<1.2) APTT (22.0-30.0) sec D-Dimer (<0.60) mg/L FEU Sodium (137-145) mmol/L Potassium (3.5-5.1) mmol/L Chloride (98-107) mmol/L Carbon Dioxide (22-30) mmol/L Anion Gap mmol/L BUN (7-17) mg/dL Creatinine (0.52-1.04) mg/dL Est GFR (CKD-EPI)AfAm (>60 ml/min/1.73 sqM) Est GFR (CKD-EPI)NonAf (>60 ml/min/1.73 sqM) Glucose (74-99) mg/dL Calcium (8.4-10.2) mg/dL Total Bilirubin (0.2-1.3) mg/dL AST (14-36) U/L ALT (4-34) U/L Alkaline Phosphatase (38-126) U/L Troponin I <0.012 (0.000-0.034) ng/mL C-Reactive Protein (<1.0) mg/dL Total Protein (6.3-8.2) g/dL Albumin (3.5-5.0) g/dL Amylase (30-110) U/L Lipase (23-300) U/L - Radiology Data Radiology results: report reviewed, image reviewed Disposition Clinical Impression: Arthralgia, Nausea and vomiting Disposition: HOME SELF-CARE Instructions (If sedation given, give patient instructions): Acute Nausea and Vomiting (ED), Arthralgia (ED) Additional Instructions: Return to the emergency department with any new, worsening, or concerning symptoms. Start taking the mobic once daily in the morning. Do not take any anti-inflammatories such as ibuprofen when taking this. You may take this with Tylenol. You can alternate with the Zofran and Phenergan if needed to control nausea and vomiting. Follow up with your primary care provider in 1-2 days and with the research technologist and manager document as scheduled. Prescriptions: Meloxicam [Mobic] 15 mg PO DAILY #15 tablet Promethazine [Phenergan] 25 mg PO Q6HR PRN #20 tablet PRN Reason: Nausea And Vomiting Is patient prescribed a controlled substance at d/c from ED?: No Referrals: Renée Leonardo MD [Primary Care Provider] - 1-2 days
[2023-02-14] MEDS ORDERED: HYDROmorphone 0.5 MG/0.5 ML SYRINGE IVP STA (23:42)
[2023-02-14 23:48] LABS: Basophils % (A) 0 %; Eosinophils # (A) 0.1 k/uL (0-0.7); Eosinophils % (A) 0 %; HCT 43.5 % (34.0-46.0); HGB 15.1 gm/dL (11.4-16.0); Lymphocytes # (A) 1.2 k/uL (1.0-4.8); Lymphocytes % (A) 11 %; MCH 28.9 pg (25.0-35.0); MCHC 34.6 g/dL (31.0-37.0); MCV 83.6 fL (80.0-100.0); Monocytes % (A) 8 %; Neutrophils # (A) 8.9 k/uL (1.3-7.7); Neutrophils % (A) 79 %; Platelet Count 183 k/uL (150-450); RBC 5.21 m/uL (3.80-5.40); RDW 13.4 % (11.5-15.5); WBC 11.3 k/uL (3.8-10.6)
[2023-02-14 23:58] LABS: ALT 21 U/L (4-34); AST 17 U/L (14-36); African American GFR (CKD) >90 (>60 ml/min/1.73 sqM); Albumin 5.1 g/dL (3.5-5.0); Alkaline Phosphatase 113 U/L (38-126); Amylase 50 U/L (30-110); Anion Gap 12 mmol/L; Blood Urea Nitrogen 17 mg/dL (7-17); C Reactive Protein <0.5 mg/dL (<1.0); Calcium 9.8 mg/dL (8.4-10.2); Carbon Dioxide 26 mmol/L (22-30); Chloride 94 mmol/L (98-107); Glucose 106 mg/dL (74-99); Lipase 100 U/L (23-300); Non-African American GFR(CKD) >90 (>60 ml/min/1.73 sqM); Sodium 132 mmol/L (137-145); Total Bilirubin 5.5 mg/dL (0.2-1.3); Total Protein 8.5 g/dL (6.3-8.2)
[2023-02-15 00:05] LABS: Partial Thromboplastin Time 21.6 sec (22.0-30.0); Prothrombin Time 10.9 sec (9.0-12.0)
[2023-02-15 00:13] VITALS: RESP 16
[2023-02-15 00:15] LABS: Potassium 3.2 mmol/L (3.5-5.1)
[2023-02-15] MEDS ORDERED: POTASSIUM CHLORIDE ER 20 MEQ TAB.ER PO STA (00:39)
[2023-02-15 01:04] LABS: Erythrocyte Sedimentation Rate 7 mm/hr (0-20)
--- NOTE | 2023-02-15 01:22 | XR ---
EXAMINATION TYPE: XR chest 2V DATE OF EXAM: 02/15/2023 COMPARISON: 04/20/2020 HISTORY: Chest pain TECHNIQUE: 2 views FINDINGS: Heart and mediastinum are normal. Lungs are clear. Diaphragm is normal. Bony thorax is norm al. IMPRESSION: Normal chest. No change.
[2023-02-15] MEDS ORDERED: PROCHLORPERAZINE INJ 10 MG/2 ML VIAL IVP STA (01:43)
[2023-02-15] MEDS ORDERED: traMADol 50 MG STARTER PACK 3 TAB BTL PO STA (01:47)
[2023-02-15 02:36] VITALS: BP 156/91; PULSE 89
== END 2023-02-15 02:37 | disposition home or self-care (01) ==
LOC: EC 22:26
DX: M25.519 Pain in unspecified shoulder (principal); M25.59 Pain in other specified joint; F12.90 Cannabis use, unspecified, uncomplicated; Z90.49 Acquired absence of other specified parts of digestive tract; Z90.89 Acquired absence of other organs; Z87.891 Personal history of nicotine dependence
CPT/HCPCS: 36415; 93005; 85379; 80053; 85652; 82150; 83690; 84484; 85025; 85610; 85730; 86140; 71046; 99284; 96374; 96375 ×2; 96361; J0780; J2765; J1885; J1170

== ENCOUNTER → 2023-02-17 | Outpatient (CLI) | payer OTHER ==
[2023-02-17 22:40] LABS: Basophils # (A) 0.05 X 10*3/uL (0.00-0.10); Basophils % (A) 0.7 %; Eosinophils # (A) 0.17 X 10*3/uL (0.04-0.35); Eosinophils % (A) 2.4 %; HCT 42.1 % (37.2-46.3); HGB 13.8 g/dL (12.0-15.0); Immature Grans, Automated 0.4 %; Lymphocytes # (A) 1.34 X 10*3/uL (0.90-5.00); Lymphocytes % (A) 18.6 %; MCH 28.9 pg (27.0-32.0); MCHC 32.8 g/dL (32.0-37.0); MCV 88.3 fL (80.0-97.0); Mean Platelet Volume 12.7 fL (9.5-12.2); Monocytes # (A) 0.69 X 10*3/uL (0.20-1.00); Monocytes % (A) 9.6 %; NRBC Per 100 WBC 0 /100 WBCS (0.0-0.0); Neutrophils # (A) 4.93 X 10*3/uL (1.80-7.70); Neutrophils % (A) 68.3 %; Platelet Count 173 X 10*3/uL (140-440); RBC 4.77 X 10*6/uL (4.10-5.20); RDW 13.3 % (11.5-14.5); WBC 7.21 X 10*3/uL (4.50-10.00)
[2023-02-17 22:58] LABS: ALT 15 U/L (8-44); AST 10 U/L (13-35); African American GFR (CKD) 134.3 (60.0-200.0); BUN/Creat Ratio 12.84 Ratio (12.00-20.00); Blood Urea Nitrogen 8.7 mg/dL (9.0-27.0); Calcium 9.8 mg/dL (8.7-10.3); Chloride 102 mmol/L (96-109); Creatine Kinase 35 U/L (26-186); Glucose 95 mg/dL (70-110); Non-African American GFR(CKD) 115.9 (60.0-200.0); Potassium 3.6 mmol/L (3.5-5.5); Sodium 142 mmol/L (135-145); Uric Acid 4.1 mg/dL (2.9-7.7)
[2023-02-17 23:09] LABS: C Reactive Protein <0.30 mg/dL (0.00-0.80); Rheumatoid Factor, Qnt <10 IU/mL (0-15)
[2023-02-18 00:13] LABS: Erythrocyte Sedimentation Rate 1 mm/Hr (0-20)
[2023-02-18 11:09] LABS: Angiotensin-1 Converting Enz. 16 U/L (8-52)
[2023-02-18 13:31] LABS: HLA B27 NEGATIVE
== END | disposition home or self-care (01) ==
LOC: LABWHC1 15:51
PROVIDERS: ATTEND Internal Medicine Rheumatology
DX: M13.0 Polyarthritis, unspecified (principal)
CPT/HCPCS: 36415; 80048; 82164; 82306; 82550; 83520; 84450; 84460; 84550; 85025; 85652; 86038; 86140; 86200; 86431; 86812

== ENCOUNTER 2023-03-10 17:09 | Observation (INO) | payer OTHER ==
--- NOTE | 2023-03-10 17:11 | ED ---
General Adult HPI <Rosalina Gordon - Last Filed: 03/10/23 17:50> - General Source: patient, RN notes reviewed Mode of arrival: ambulatory Limitations: no limitations - History of Present Illness MD Complaint: Nausea and vomiting <Ade Gonzalez - Last Filed: 03/11/23 03:50> - General Chief complaint: Nausea/Vomiting/Diarrhea Stated complaint: Nausea Time Seen by Provider: 03/10/23 17:10 - History of Present Illness Initial comments: 32-year-old female presents to the emergency department with a chief complaint of generalized body aches and nausea and vomiting that started this morning. (Rosalina Gordon) When I went to evaluate the patient, she reiterated the same symptoms as above in terms of the nausea and vomiting that started this morning. She has associated lightheadedness and dizziness that she attributes to vomiting. States that she was recently diagnosed with rheumatoid arthritis and a lupus workup is still pending. She attributes the generalized body aches to the rheumatoid arthritis. She has her first appointment with rheumatology next week. She also reports chest pain and generalized abdominal pain. States that the chest pain has been a recurrent and ongoing problem for her. Denies any c hanges in bowel or bladder habits. (Ade Gonzalez) - Related Data Home Medications Medication Instructions Recorded Confirmed No Known Home Medications 03/10/23 03/10/23 Allergies Allergy/AdvReac Type Severity Reaction Status Date / Time No Known Allergies Allergy Verified 03/10/23 22:28 Review of Systems ROS Other: All systems not noted in ROS Statement are negative. <Rosalina Gordon - Last Filed: 03/10/23 17:50> ROS Other: All systems not noted in ROS Statement are negative. <Ade Gonzalez - Last Filed: 03/11/23 03:50> ROS Statement: Those systems with pertinent positive or pertinent negative responses have been documented in the HPI. Past Medical History Past Medical History: Osteoarthritis (OA) Additional Past Medical History / Comment(s): [place] Syndrome; thrombocytopenia History of Any Multi-Drug Resistant Organisms: None Reported Past Surgical History: Appendectomy, Section, Cholecystectomy, Orthopedic Surgery Additional Past Surgical History / Comment(s): Right knee surgery. Past Anesthesia/Blood Transfusion Reactions: No Reported Reaction Past Psychological History: No Psychological Hx Reported Smoking Status: Former smoker Past Alcohol Use History: Occasional Past Drug Use History: Marijuana - Past Family History Mother Family Medical History: No Reported History <Rosalina Gordon - Last Filed: 03/10/23 17:50> General Exam <Rosalina Gordon - Last Filed: 03/10/23 17:50> Limitations: no limitations General appearance: alert, in distress Head exam: Present: atraumatic, normocephalic, normal inspection Respiratory exam: Present: normal lung sounds bilaterally. Absent: respiratory distress, wheezes, rales, rhonchi, stridor Cardiovascular Exam: Present: regular rate, normal rhythm, normal heart sounds. Absent: systolic murmur, diastolic murmur, rubs, gallop, clicks GI/Abdominal exam: Present: soft, tenderness (Mild and generalized), normal bowel sounds. Absent: distended, guarding, rebound, rigid Neurological exam: Present: alert, oriented X3, CN II-XII intact Psychiatric exam: Present: normal affect, normal mood Skin exam: Present: warm, dry, intact, normal color. Absent: rash <Ade Gonzalez - Last Filed: 03/11/23 03:50> - General Exam Comments Initial Comments: Visual Physical Exam Vital signs reviewed General: Well-appearing, nontoxic, no acute distress. Head: Normocephalic, atraumatic Eyes: PERRLA, EOMI ENT: Airway patent Chest: Nonlabored breathing Skin: No visual rash, normal skin tone Neuro: Alert and oriented 3 Musculoskeletal: No gross abnormalities (Rosalina Gordon) Course <Rosalina Gordon - Last Filed: 03/10/23 17:50> Vital Signs 03/10/23 03/10/23 03/10/23 17:37 22:45 23:00 Temperature 98 F Pulse Rate 60 52 L Respiratory 18 18 Rate Blood Pressure 108/68 O2 Sat by Pulse 98 99 Oximetry - Reevaluation(s) Reevaluation #1: 03/10/23 17:50 Patient currently taking provider multiple times in the desk. Patient is reporting coming symptoms of shortness of breath. Chest x-ray and EKG ordered. (Rosalina Gordon) Medical Decision Making - Lab Data Result diagrams: 03/10/23 17:10 03/10/23 17:10 - Radiology Data Radiology results: report reviewed, image reviewed <Ade Gonzalez - Last Filed: 03/11/23 03:50> - Medical Decision Making This is a 32-year-old female who presents to the emergency department for nausea and vomiting. Was pt. sent in by a medical professional or institution? @ -No Did you speak to anyone other than the patient for history? @ -No Did you review nursing and triage notes? @ -Yes, and I agree, it is accurate with regards to the patient's symptoms. Were old charts reviewed? @ -No Differential Diagnosis? @ -Differential Nausea and Vomiting: Gastroenteritis, cholecystitis, appendicitis, pancreatitis, migraine, benign positional vertigo, food borne illness, pyelonephritis, irritable bowel syndrome, influenza, Covid, GERD, incarcerated hernia, intestinal obstruction, this is not meant to be an all-inclusive list. X-rays interpreted by me (1pt min.)? @ -Chest x-ray obtained, my interpretation identifies no localized consolidations or infiltrates. What testing was considered but not performed? (CT, X-rays, U/S, labs)? Why? @ -None What meds were considered but not given? Why? @ -None Did you discuss the management of the patient with other professionals? @ -Yes, Dr. Alexander who accepts the patient for admission. Did you reconcile home meds? @ -Yes Was smoking cessation discussed for >3mins.? @ -No Was critical care preformed (if so, how long)? @ -No Were there social determinants of health that impacted care today? How? (Homelessness, low income, unemployed, alcoholism, drug addiction, transportation, low edu. Level, literacy, decrease access to med. care, group home, rehab)? @ -No Was there de-escalation of care discussed even if they declined? (Discuss DNR or withdrawal of care, Hospice)? @ -No What co-morbidities impacted this encounter? (DM, HTN, Smoking, COPD, CAD, Cancer, CVA, Hep., AIDS, mental health diagnosis, sleep apnea, morbid obesity)? @ -Gilbert's syndrome, marijuana use Was patient admitted / discharged? @ -Admitted. Lab work obtained and found to be nonactionable. Chest x-ray reveals no acute findings. Elevated bilirubin consistent with prior values and related to her known diagnosis of Gilbert's syndrome. Urinalysis consistent with contamination. Benzodiazepines and opiates in the urine drug screen were both administered in the emergency department. She does admit to chronic marijuana use, which was also identified in her UDS. Her symptoms were very difficult to control in the emergency department. We tried Zofran, Reglan, and Haldol for the nausea and vomiting. All medications were effective for only approximately 20-30 minutes, and symptoms then returned. She has been unable to tolerate any sort of oral intake. She has also required multiple pain medications. The persistent nausea and vomiting may be related to cannabinoid hyperemesis syndrome or other unidentified etiology. Given the intractable nausea and vomiting and inability to tolerate oral intake, patient admitted to medicine for further management. Consult placed for GI per the admitting team's request. She was also started on maintenance IV fluids. Undiagnosed new problem with uncertain prognosis? @ -None Drug Therapy requiring intensive monitoring for toxicity (Heparin, Nitro, Insulin, Cardizem)? @ -None Were any procedures done? @ -None Diagnosis/symptom? @ -Intractable nausea and vomiting Acute, or Chronic, or Acute on Chronic? @ -Acute Uncomplicated (without systemic symptoms) or Complicated (systemic symptoms)? @ -Complicated Side effects of treatment? @ -None Exacerbation, Progression, or Severe Exacerbation] @ -Not applicable Poses a threat to life or bodily function? @ -Yes This case was discussed in detail with the attending ED physician, Dr. Wolfe. Presentation, findings, and treatment plan discussed in detail as well. (Ade Gonzalez) - Lab Data Lab Results 03/10/23 03/10/23 03/10/23 Range/Units 01:30 01:30 01:30 WBC (3.8-10.6) k/uL RBC (3.80-5.40) m/uL Hgb (11.4-16.0) gm/dL Hct (34.0-46.0) % MCV (80.0-100.0) fL MCH (25.0-35.0) pg MCHC (31.0-37.0) g/dL RDW (11.5-15.5) % Plt Count (150-450) k/uL MPV Neutrophils % % Lymphocytes % % Monocytes % % Eosinophils % % Basophils % % Neutrophils # (1.3-7.7) k/uL Lymphocytes # (1.0-4.8) k/uL Monocytes # (0-1.0) k/uL Eosinophils # (0-0.7) k/uL Basophils # (0-0.2) k/uL Sodium (137-145) mmol/L Potassium (3.5-5.1) mmol/L Chloride (98-107) mmol/L Carbon Dioxide (22-30) mmol/L Anion Gap mmol/L BUN (7-17) mg/dL Creatinine (0.52-1.04) mg/dL Est GFR (CKD-EPI)AfAm (>60 ml/min/1.73 sqM) Est GFR (CKD-EPI)NonAf (>60 ml/min/1.73 sqM) Glucose (74-99) mg/dL Plasma Lactic Acid Stanton (0.7-2.0) mmol/L Calcium (8.4-10.2) mg/dL Total Bilirubin (0.2-1.3) mg/dL AST (14-36) U/L ALT (4-34) U/L Alkaline Phosphatase (38-126) U/L Total Protein (6.3-8.2) g/dL Albumin (3.5-5.0) g/dL Amylase (30-110) U/L Lipase (23-300) U/L Urine Color Yellow Urine Appearance Cloudy H (Clear) Urine pH 6.5 (5.0-8.0) Ur Specific Pierson 1.025 (1.001-1.035) Urine Protein 1+ H (Negative) Urine Glucose (UA) Negative (Negative) Urine Ketones 4+ H (Negative) Urine Blood Moderate H (Negative) Urine Nitrite Negative (Negative) Urine Bilirubin Negative (Negative) Urine Urobilinogen <2.0 (<2.0) mg/dL Ur Leukocyte Esterase Small H (Negative) Urine RBC 2 (0-5) /hpf Urine WBC 12 H (0-5) /hpf Ur Squamous Epith Cells 13 H (0-4) /hpf Urine Bacteria Many H (None) /hpf Urine Mucus Many H (None) /hpf Urine HCG, Qual Not Detected (Not Detectd) Urine Opiates Screen Detected H (NotDetected) Ur Oxycodone Screen Not Detected (NotDetected) Urine Methadone Screen Not Detected (NotDetected) Ur Propoxyphene Screen Not Detected (NotDetected) Ur Barbiturates Screen Not Detected (NotDetected) U Tricyclic Antidepress Not Detected (NotDetected) Ur Phencyclidine Scrn Not Detected (NotDetected) Ur Amphetamines Screen Not Detected (NotDetected) U Methamphetamines Scrn Not Detected (NotDetected) U Benzodiazepines Scrn Detected H (NotDetected) Urine Cocaine Screen Not Detected (NotDetected) U Marijuana (THC) Screen Detected H (NotDetected) Influenza Type A (PCR) (Not Detectd) Influenza Type B (PCR) (Not Detectd) RSV (PCR) (Not Detectd) SARS-CoV-2 (PCR) (Not Detectd) 03/10/23 03/10/23 03/10/23 Range/Units 17:10 17:10 20:40 WBC 9.6 (3.8-10.6) k/uL RBC 5.04 (3.80-5.40) m/uL Hgb 14.9 (11.4-16.0) gm/dL Hct 41.8 (34.0-46.0) % MCV 83.0 (80.0-100.0) fL MCH 29.6 (25.0-35.0) pg MCHC 35.7 (31.0-37.0) g/dL RDW 13.8 (11.5-15.5) % Plt Count 177 (150-450) k/uL MPV 9.8 Neutrophils % 91 % Lymphocytes % 6 % Monocytes % 2 % Eosinophils % 0 % Basophils % 0 % Neutrophils # 8.8 H (1.3-7.7) k/uL Lymphocytes # 0.6 L (1.0-4.8) k/uL Monocytes # 0.2 (0-1.0) k/uL Eosinophils # 0.0 (0-0.7) k/uL Basophils # 0.0 (0-0.2) k/uL Sodium 134 L (137-145) mmol/L Potassium 3.9 (3.5-5.1) mmol/L Chloride 99 (98-107) mmol/L Carbon Dioxide 24 (22-30) mmol/L Anion Gap 11 mmol/L BUN 13 (7-17) mg/dL Creatinine 0.48 L (0.52-1.04) mg/dL Est GFR (CKD-EPI)AfAm >90 (>60 ml/min/1.73 sqM) Est GFR (CKD-EPI)NonAf >90 (>60 ml/min/1.73 sqM) Glucose 125 H (74-99) mg/dL Plasma Lactic Acid Stanton 1.7 (0.7-2.0) mmol/L Calcium 9.3 (8.4-10.2) mg/dL Total Bilirubin 3.8 H (0.2-1.3) mg/dL AST 17 (14-36) U/L ALT 17 (4-34) U/L Alkaline Phosphatase 103 (38-126) U/L Total Protein 7.4 (6.3-8.2) g/dL Albumin 4.4 (3.5-5.0) g/dL Amylase 36 (30-110) U/L Lipase 43 (23-300) U/L Urine Color Urine Appearance (Clear) Urine pH (5.0-8.0) Ur Specific [place] (1.001-1.035) Urine Protein (Negative) Urine Glucose (UA) (Negative) Urine Ketones (Negative) Urine Blood (Negative) Urine Nitrite (Negative) Urine Bilirubin (Negative) Urine Urobilinogen (<2.0) mg/dL Ur Leukocyte Esterase (Negative) Urine RBC (0-5) /hpf Urine WBC (0-5) /hpf Ur Squamous Epith Cells (0-4) /hpf Urine Bacteria (None) /hpf Urine Mucus (None) /hpf Urine HCG, Qual (Not Detectd) Urine Opiates Screen (NotDetected) Ur Oxycodone Screen (NotDetected) Urine Methadone Screen (NotDetected) Ur Propoxyphene Screen (NotDetected) Ur Barbiturates Screen (NotDetected) U Tricyclic Antidepress (NotDetected) Ur Phencyclidine Scrn (NotDetected) Ur Amphetamines Screen (NotDetected) U Methamphetamines Scrn (NotDetected) U Benzodiazepines Scrn (NotDetected) Urine Cocaine Screen (NotDetected) U Marijuana (THC) Screen (NotDetected) Influenza Type A (PCR) (Not Detectd) Influenza Type B (PCR) (Not Detectd) RSV (PCR) (Not Detectd) SARS-CoV-2 (PCR) (Not Detectd) 03/10/23 Range/Units 21:30 WBC (3.8-10.6) k/uL RBC (3.80-5.40) m/uL Hgb (11.4-16.0) gm/dL Hct (34.0-46.0) % MCV (80.0-100.0) fL MCH (25.0-35.0) pg MCHC (31.0-37.0) g/dL RDW (11.5-15.5) % Plt Count (150-450) k/uL MPV Neutrophils % % Lymphocytes % % Monocytes % % Eosinophils % % Basophils % % Neutrophils # (1.3-7.7) k/uL Lymphocytes # (1.0-4.8) k/uL Monocytes # (0-1.0) k/uL Eosinophils # (0-0.7) k/uL Basophils # (0-0.2) k/uL Sodium (137-145) mmol/L Potassium (3.5-5.1) mmol/L Chloride (98-107) mmol/L Carbon Dioxide (22-30) mmol/L Anion Gap mmol/L BUN (7-17) mg/dL Creatinine (0.52-1.04) mg/dL Est GFR (CKD-EPI)AfAm (>60 ml/min/1.73 sqM) Est GFR (CKD-EPI)NonAf (>60 ml/min/1.73 sqM) Glucose (74-99) mg/dL Plasma Lactic Acid Stanton (0.7-2.0) mmol/L Calcium (8.4-10.2) mg/dL Total Bilirubin (0.2-1.3) mg/dL AST (14-36) U/L ALT (4-34) U/L Alkaline Phosphatase (38-126) U/L Total Protein (6.3-8.2) g/dL Albumin (3.5-5.0) g/dL Amylase (30-110) U/L Lipase (23-300) U/L Urine Color Urine Appearance (Clear) Urine pH (5.0-8.0) Ur Specific [place] (1.001-1.035) Urine Protein (Negative) Urine Glucose (UA) (Negative) Urine Ketones (Negative) Urine Blood (Negative) Urine Nitrite (Negative) Urine Bilirubin (Negative) Urine Urobilinogen (<2.0) mg/dL Ur Leukocyte Esterase (Negative) Urine RBC (0-5) /hpf Urine WBC (0-5) /hpf Ur Squamous Epith Cells (0-4) /hpf Urine Bacteria (None) /hpf Urine Mucus (None) /hpf Urine HCG, Qual (Not Detectd) Urine Opiates Screen (NotDetected) Ur Oxycodone Screen (NotDetected) Urine Methadone Screen (NotDetected) Ur Propoxyphene Screen (NotDetected) Ur Barbiturates Screen (NotDetected) U Tricyclic Antidepress (NotDetected) Ur Phencyclidine Scrn (NotDetected) Ur Amphetamines Screen (NotDetected) U Methamphetamines Scrn (NotDetected) U Benzodiazepines Scrn (NotDetected) Urine Cocaine Screen (NotDetected) U Marijuana (THC) Screen (NotDetected) Influenza Type A (PCR) Not Detected (Not Detectd) Influenza Type B (PCR) Not Detected (Not Detectd) RSV (PCR) Not Detected (Not Detectd) SARS-CoV-2 (PCR) Not Detected (Not Detectd) Disposition <Rosalina Gordon - Last Filed: 03/10/23 17:50> <Ade Gonzalez - Last Filed: 03/11/23 03:50> Clinical Impression: Intractable nausea and vomiting Disposition: ADMITTED IP TO THIS HOSP Referrals: Renée Leonardo MD [Primary Care Provider] - 1-2 days
--- NOTE | 2023-03-10 18:12 | XR ---
EXAMINATION TYPE: XR chest 2V DATE OF EXAM: 03/10/2023 6:09 PM COMPARISON: Chest radiographs from 02/15/2023. TECHNIQUE: XR chest 2V Frontal and lateral views of the chest. CLINICAL INDICATION:Female, 32 years old with history of sob; FINDINGS: Lungs/Pleura: There is no evidence of pleural effusion, focal consolidation, or pneumothorax. Pulmonary vascularity: Unremarkable. Heart/mediastinum: Cardiomediastinal silhouette is unremarkable. Musculoskeletal: No acute osseous pathology. IMPRESSION: No acute cardiopulmonary disease/process.
[2023-03-10] MEDS ORDERED: ONDANSETRON 4 MG/2 ML VIAL IVP STA (20:06)
[2023-03-10] MEDS ORDERED: SODIUM CHLORIDE 0.9% 1,000 ML IV STA (20:06)
[2023-03-10] MEDS ORDERED: KETOROLAC 15 MG/ML 1 ML VIAL IVP STA (20:23)
[2023-03-10] MEDS ORDERED: HYDROmorphone 0.5 MG/0.5 ML SYRINGE IVP STA (20:23)
[2023-03-10 21:23] LABS: Basophils % (A) 0 %; Eosinophils % (A) 0 %; HCT 41.8 % (34.0-46.0); HGB 14.9 gm/dL (11.4-16.0); Lymphocytes # (A) 0.6 k/uL (1.0-4.8); Lymphocytes % (A) 6 %; MCH 29.6 pg (25.0-35.0); MCHC 35.7 g/dL (31.0-37.0); Mean Platelet Volume 9.8; Monocytes # (A) 0.2 k/uL (0-1.0); Monocytes % (A) 2 %; Neutrophils # (A) 8.8 k/uL (1.3-7.7); Neutrophils % (A) 91 %; Platelet Count 177 k/uL (150-450); RBC 5.04 m/uL (3.80-5.40); RDW 13.8 % (11.5-15.5); WBC 9.6 k/uL (3.8-10.6)
[2023-03-10 21:29] LABS: ALT 17 U/L (4-34); AST 17 U/L (14-36); African American GFR (CKD) >90 (>60 ml/min/1.73 sqM); Albumin 4.4 g/dL (3.5-5.0); Alkaline Phosphatase 103 U/L (38-126); Amylase 36 U/L (30-110); Anion Gap 11 mmol/L; Blood Urea Nitrogen 13 mg/dL (7-17); Calcium 9.3 mg/dL (8.4-10.2); Carbon Dioxide 24 mmol/L (22-30); Chloride 99 mmol/L (98-107); Glucose 125 mg/dL (74-99); Lipase 43 U/L (23-300); Non-African American GFR(CKD) >90 (>60 ml/min/1.73 sqM); Potassium 3.9 mmol/L (3.5-5.1); Sodium 134 mmol/L (137-145); Total Bilirubin 3.8 mg/dL (0.2-1.3); Total Protein 7.4 g/dL (6.3-8.2)
[2023-03-10] MEDS ORDERED: FAMOTIDINE 20 MG/2 ML VIAL IV STA (22:09)
[2023-03-10] MEDS ORDERED: METOCLOPRAMIDE 5 MG/ML 2 ML VIAL IVP STA (23:29)
[2023-03-11] MEDS ORDERED: HALOPERIDOL LACTATE 5 MG/ML 1 ML VIAL IVP ONE (01:44)
[2023-03-11] MEDS ORDERED: KETOROLAC 15 MG/ML 1 ML VIAL IVP STA (01:44)
[2023-03-11 02:16] LABS: Appearance,Urine Cloudy (Clear); Bacteria,Urine Many /hpf; Bilirubin,Urine Negative (Negative); Blood,Urine Moderate (Negative); Color,Urine Yellow; Glucose,Urine (UA) Negative (Negative); Ketones,Urine 4+ (Negative); Leukocyte Esterase,Urine Small (Negative); Mucus,Urine Many /hpf; Nitrite,Urine Negative (Negative); PH, Urine 6.5 (5.0-8.0); Protein,Urine 1+ (Negative); RBC,Urine 2 /hpf (0-5); Specific Gravity,Urine 1.025 (1.001-1.035); Squamous Epithelial Cell,Urine 13 /hpf (0-4); Urobilinogen,Urine <2.0 mg/dL (<2.0); WBC,Urine 12 /hpf (0-5)
[2023-03-11 02:18] LABS: Amphetamine Screen,Urine Not Detected (NotDetected); Barbiturate Screen,Urine Not Detected (NotDetected); Benzodiazepines Screen,Urine Detected (NotDetected); Cocaine Screen,Urine Not Detected (NotDetected); Methadone Screen, Urine Not Detected (NotDetected); Opiate Screen,Urine Detected (NotDetected); Oxycodone Screen, Urine Not Detected (NotDetected); Phencyclidine Screen,Urine Not Detected (NotDetected); Tricyclic Antidepressant,Urine Not Detected (NotDetected); Urn Cannabinoid Scrn Detected (NotDetected)
[2023-03-11] MEDS ORDERED: HYDROmorphone 1 MG/ML 1 ML SYRINGE IVP PRN (03:40)
[2023-03-11] MEDS ORDERED: NALOXONE 0.4 MG/ML 1 ML VIAL IV PRN (03:40)
[2023-03-11] MEDS ORDERED: KETOROLAC 15 MG/ML 1 ML VIAL IVP PRN (03:40)
[2023-03-11] MEDS ORDERED: ACETAMINOPHEN TAB 325 MG TAB PO PRN (03:40)
[2023-03-11] MEDS ORDERED: HYDROmorphone 0.5 MG/0.5 ML SYRINGE IVP PRN (03:40)
[2023-03-11] MEDS ORDERED: ONDANSETRON 4 MG/2 ML VIAL IVP PRN (03:40)
[2023-03-11] MEDS ORDERED: METOCLOPRAMIDE 5 MG/ML 2 ML VIAL IVP PRN (03:42)
[2023-03-11] MEDS ORDERED: SODIUM CHLORIDE 0.9% 1,000 ML IV SCH (03:45)
[2023-03-11 07:36] VITALS: BP 116/56; PULSE 65; RESP 16; TEMP 98.6
[2023-03-11] MEDS ORDERED: MELATONIN 3 MG TABLET PO SCH (21:00)
--- NOTE | 2023-03-11 22:00 | P.HPIM ---
History of Present Illness H&P Date: 03/11/23 Chief Complaint: Multiple symptoms This is a pleasant 32-year-old patient who follows with Dr. Renée Leonardo. Patient presents with these episodes that have occurred for last 4 years. She'll have an about 6-7 times per year. Last anywhere from 2-4 days at a time. At her baseline as patient rather healthy and active with 3 children at home. On this occasion patient started off yesterday with chest hurting echo pushing sensation. This involved into nausea vomiting and diarrhea. Subsequently joints exhibit shoulder hips knees all started hurting. Patient has seen Dr. Morejon the cash reconciliation specialist and is due to follow up her labs. The past she's been to several doctors and hospitals but no clear-cut diagnosis. Denies any headaches. Her vision is affected she has to get new glasses. Denies any fever and chills. Sometimes she'll have loose bowels. She does get demarcated redness on the skin patches with these episodes. Between these episodes patient is totally normal. She also sometimes feels some chest tightness with these episodes This morning patient feels back to her normal self. Wanting regular diet. Review of systems: GEN.: Tired EYES: None HEENT: None NECK: None RESPIRATORY: None CARDIOVASCULAR: None GASTROINTESTINAL: As above GENITOURINARY: None MUSCULOSKELETAL: As above LYMPHATICS: None HEMATOLOGICAL: None PSYCHIATRY: None NEUROLOGICAL: None Past medical history to include: Gilbert's syndrome. Social history: Smoked in the remote past occasionally. Sometimes marijuana. with 3 children's. Homemaker Physical examination: VITAL SIGNS: 98.1, 60, 18, 108/68, 98% room air GENERAL: Average built, sitting up, comfortable. EYES: Pupils equal. Conjunctiva normal. HEENT: External appearance of nose and ears normal, oral cavity grossly normal. NECK: JVD not raised; masses not palpable. HEART: First and second heart sounds are normal; no edema. LUNGS: Respiratory rate normal; clear to auscultation. ABDOMEN: Soft, nontender, liver spleen not palpable, no masses palpable. PSYCH: Alert and oriented x3; mood and affect normal. MUSCULOSKELETAL:No Clubbing/cyanosis;muscles-grossly intact NEUROLOGICAL: Cranial nerves grossly intact; no facial asymmetry, power and sensation grossly intact. LYMPHATICS: No lymph nodes palpable in the axilla and neck INVESTIGATIONS, reviewed in the clinical context: White count 9.6 hemoglobin 14.9 platelets 177 sodium 134 potassium 3.9 BUN 13 total bilirubin 3.8 Uterine opioid screen: Detected, benzodiazepines, marijuana Influenza type A, B, RSV, COVID-19: Not detected Chest x-ray film personally reviewed by -marley Previous testing: HLA-B 27, JOSSELYN, cyclic citrulline peptide: Negative Rheumatoid factor less than 10 Free T4 2.26 TSH 0.355 Assessment and plan: -Patient has an episode of multiple symptoms see above. Testing from [facility] tests show elevated free T4 and a decreased TSH. Suggestive of hyperthyroidism. Patient is waiting to get an appointment with aids counselor Dr. Mullins. He should follow up for the same The patient is able to tolerate diet will DC. Past Medical History Past Medical History: Osteoarthritis (OA) Additional Past Medical History / Comment(s): [place] Syndrome; thrombocytopenia History of Any Multi-Drug Resistant Organisms: None Reported Past Surgical History: Appendectomy, Section, Cholecystectomy, Orthopedic Surgery Additional Past Surgical History / Comment(s): Right knee surgery. Past Anesthesia/Blood Transfusion Reactions: No Reported Reaction Past Psychological History: No Psychological Hx Reported Smoking Status: Former smoker Past Alcohol Use History: Occasional Additional Past Alcohol Use History / Comment(s): "Smoked here and there when drinking, it's been a long time." Past Drug Use History: Marijuana Additional Drug Use History / Comment(s): Occasionally uses Marijuana - Past Family History Mother Family Medical History: No Reported History Medications and Allergies Home Medications Medication Instructions Recorded Confirmed Type No Known Home Medications 03/10/23 03/10/23 History Allergies Allergy/AdvReac Type Severity Reaction Status Date / Time No Known Allergies Allergy Verified 03/10/23 22:28 Physical Exam Vitals: Vital Signs Temp Pulse Pulse Resp BP BP Pulse Ox 03/11/23 06:55 98.6 F 65 16 116/56 98 03/11/23 01:00 50 L 18 118/72 99 03/10/23 23:00 52 L 18 108/68 99 03/10/23 22:45 98 03/10/23 17:37 98 F 60 18 Intake and Output 03/10/23 03/11/23 03/11/23 22:59 06:59 14:59 Other: # Voids 1 Weight 56.699 kg 56.699 kg Results CBC & Chem 7: 03/10/23 17:10 03/10/23 17:10 Labs: Abnormal Lab Results - Last 24 Hours (Table) 03/10/23 03/10/23 03/10/23 Range/Units 01:30 01:30 17:10 Neutrophils # 8.8 H (1.3-7.7) k/uL Lymphocytes # 0.6 L (1.0-4.8) k/uL Sodium (137-145) mmol/L Creatinine (0.52-1.04) mg/dL Glucose (74-99) mg/dL Total Bilirubin (0.2-1.3) mg/dL Urine Appearance Cloudy H (Clear) Urine Protein 1+ H (Negative) Urine Ketones 4+ H (Negative) Urine Blood Moderate H (Negative) Ur Leukocyte Esterase Small H (Negative) Urine WBC 12 H (0-5) /hpf Ur Squamous Epith Cells 13 H (0-4) /hpf Urine Bacteria Many H (None) /hpf Urine Mucus Many H (None) /hpf Urine Opiates Screen Detected H (NotDetected) U Benzodiazepines Scrn Detected H (NotDetected) U Marijuana (THC) Screen Detected H (NotDetected) 03/10/23 Range/Units 17:10 Neutrophils # (1.3-7.7) k/uL Lymphocytes # (1.0-4.8) k/uL Sodium 134 L (137-145) mmol/L Creatinine 0.48 L (0.52-1.04) mg/dL Glucose 125 H (74-99) mg/dL Total Bilirubin 3.8 H (0.2-1.3) mg/dL Urine Appearance (Clear) Urine Protein (Negative) Urine Ketones (Negative) Urine Blood (Negative) Ur Leukocyte Esterase (Negative) Urine WBC (0-5) /hpf Ur Squamous Epith Cells (0-4) /hpf Urine Bacteria (None) /hpf Urine Mucus (None) /hpf Urine Opiates Screen (NotDetected) U Benzodiazepines Scrn (NotDetected) U Marijuana (THC) Screen (NotDetected)
--- NOTE | 2023-03-11 22:02 | P.DS ---
Providers Date of admission: 03/11/23 03:40 Expected date of discharge: 03/11/23 Attending physician: Jerod Alexander Consults: 03/11/23 03:40 Consult Physician Urgent Consulting Provider: Erica Feliciano Consult Reason/Comments: Intractable nausea and vomiting Do you want consulting provider notified?: Yes, Notify in am Primary care physician: Renée Leonardo [place] [facility] Course: Chief Complaint: Multiple symptoms This is a pleasant 32-year-old patient who follows with Dr. Renée Leonardo. Patient presents with these episodes that have occurred for last 4 years. She'll have an about 6-7 times per year. Last anywhere from 2-4 days at a time. At her baseline as patient rather healthy and active with 3 children at home. On this occasion patient started off yesterday with chest hurting echo pushing sensation. This involved into nausea vomiting and diarrhea. Subsequently joints exhibit shoulder hips knees all started hurting. Patient has seen Dr. Morejon the senior interactive developer and is due to follow up her labs. The past she's been to several doctors and hospitals but no clear-cut diagnosis. Denies any headaches. Her vision is affected she has to get new glasses. Denies any fever and chills. Sometimes she'll have loose bowels. She does get demarcated redness on the skin patches with these episodes. Between these episodes patient is totally normal. She also sometimes feels some chest tightness with these episodes This morning patient feels back to her normal self. Wanting regular diet. Possible hyperthyroidism. Patient due to see outpatient endocrinology through her PCP. Also due to see a senior interactive developer. R Past medical history to include: Gilbert's syndrome. Social history: Smoked in the remote past occasionally. Sometimes marijuana. with 3 children's. Homemaker Physical examination: VITAL SIGNS: 98.1, 60, 18, 108/68, 98% room air GENERAL: Average built, sitting up, comfortable. EYES: Pupils equal. Conjunctiva normal. HEENT: External appearance of nose and ears normal, oral cavity grossly normal. NECK: JVD not raised; masses not palpable. HEART: First and second heart sounds are normal; no edema. LUNGS: Respiratory rate normal; clear to auscultation. ABDOMEN: Soft, nontender, liver spleen not palpable, no masses palpable. PSYCH: Alert and oriented x3; mood and affect normal. MUSCULOSKELETAL:No Clubbing/cyanosis;muscles-grossly intact NEUROLOGICAL: Cranial nerves grossly intact; no facial asymmetry, power and sensation grossly intact. LYMPHATICS: No lymph nodes palpable in the axilla and neck INVESTIGATIONS, reviewed in the clinical context: White count 9.6 hemoglobin 14.9 platelets 177 sodium 134 potassium 3.9 BUN 13 total bilirubin 3.8 Uterine opioid screen: Detected, benzodiazepines, marijuana Influenza type A, B, RSV, COVID-19: Not detected Chest x-ray film personally reviewed by me-clear Previous testing: HLA-B 27, JOSSELYN, cyclic citrulline peptide: Negative Rheumatoid factor less than 10 Free T4 2.26 TSH 0.355 Assessment and plan: -Patient has an episode of multiple symptoms see above. Testing from [facility] tests show elevated free T4 and a decreased TSH. Suggestive of hyperthyroidism. Patient is waiting to get an appointment with camouflage specialist Dr. Mullins. He should follow up for the same Disposition: Home Plan - Discharge Summary New Discharge Prescriptions: No Action No Known Home Medications Discharge Medication List No Known Home Medications 03/10/23 [History] Follow up Appointment(s)/Referral(s): Patrick Mullins MD [REFERRING] - 1 Week Renée Leonardo MD [Primary Care Provider] - 1-2 days Trudy Morejon MD [STAFF PHYSICIAN] - 1 Week Patient Instructions/Handouts: Acute Nausea and Vomiting (DC) Discharge Disposition: HOME SELF-CARE
== END 2023-03-11 15:20 | disposition home or self-care (01) ==
LOC: EC 17:09 → 6NMEDSUR 03-11 03:40
PROVIDERS: ADMIT Hospitalist; ATTEND Hospitalist
DX: R11.2 Nausea with vomiting, unspecified (principal); M06.9 Rheumatoid arthritis, unspecified; E80.4 Gilbert syndrome; R94.6 Abnormal results of thyroid function studies; R07.89 Other chest pain; R19.7 Diarrhea, unspecified; R10.84 Generalized abdominal pain; M19.90 Unspecified osteoarthritis, unspecified site; D69.6 Thrombocytopenia, unspecified; Z90.49 Acquired absence of other specified parts of digestive tract; Z98.891 History of uterine scar from previous surgery; Z98.890 Other specified postprocedural states; Z87.891 Personal history of nicotine dependence; Z20.822 Contact with and (suspected) exposure to COVID-19
CPT/HCPCS: 96376 ×2; 96374; 96375 ×2; 99285; 36415; 80053; 82150; 83605; 83690; 85025; 81001; 81025; 80306; 87636; 71046; G0378; J1630; J2765; J3360; J2405; J1885 ×2; J1170 ×2

== ENCOUNTER 2023-04-01 10:15 | Emergency (ER) | payer OTHER ==
[2023-04-01] MEDS ORDERED: SODIUM CHLORIDE 0.9% 1,000 ML IV STA (10:42)
[2023-04-01] MEDS ORDERED: diphenhydrAMINE 50 MG/ML 1 ML VIAL IVP STA (10:42)
[2023-04-01] MEDS ORDERED: KETOROLAC 15 MG/ML 1 ML VIAL IVP STA (10:43)
--- NOTE | 2023-04-01 10:49 | ED ---
Nausea/Vomiting/Diarrhea HPI - General Chief complaint: Nausea/Vomiting/Diarrhea Stated complaint: Vomiting, Pain chest/nek/back, Dizzy Time Seen by Provider: 04/01/23 10:32 Source: patient, RN notes reviewed, old records reviewed Mode of arrival: ambulatory Limitations: no limitations - History of Present Illness Initial comments: Nontoxic-appearing 32-year-old female presents to the emergency room with multiple complaints including body aches, nausea vomiting diarrhea, chest pain and neck pain that started this morning. Patient denies any fevers. No cough or sick contacts. States that she was recently diagnosed with fibromyalgia and hyperthyroidism. History of appendectomy and cholecystectomy. MD complaint: nausea, vomiting, diarrhea, other (body aches) -: days(s) (1) Severity scale (1-10): 10 Quality: aching (body), sharp (neck) Consistency: constant Improves with: none Associated Symptoms: myalgias, chest pain, malaise, nausea/vomiting, other (diarrhea, neck pain) - Related Data Home Medications Medication Instructions Recorded Confirmed DULoxetine HCL [Cymbalta] 30 mg PO BID 04/01/23 04/01/23 hydrOXYzine HCL [Atarax] 50 mg PO BID 04/01/23 04/01/23 Previous Rx's Medication Instructions Recorded Ondansetron Odt [Zofran Odt] 4 mg PO Q8HR PRN #10 tab 04/01/23 Allergies Allergy/AdvReac Type Severity Reaction Status Date / Time No Known Allergies Allergy Verified 04/01/23 14:34 Review of Systems ROS Statement: Those systems with pertinent positive or pertinent negative responses have been documented in the HPI. ROS Other: All systems not noted in ROS Statement are negative. Past Medical History Past Medical History: Fibromyalgia, Osteoarthritis (OA), Thyroid Disorder Additional Past Medical History / Comment(s): [place] Syndrome; thrombocytopenia History of Any Multi-Drug Resistant Organisms: None Reported Past Surgical History: Appendectomy, Section, Cholecystectomy, Orthopedic Surgery Additional Past Surgical History / Comment(s): Right knee surgery. Past Anesthesia/Blood Transfusion Reactions: No Reported Reaction Past Psychological History: No Psychological Hx Reported Smoking Status: Former smoker Past Alcohol Use History: Occasional Past Drug Use History: Marijuana - Past Family History Mother Family Medical History: No Reported History General Exam Limitations: no limitations General appearance: alert, in no apparent distress Head exam: Present: atraumatic Eye exam: Present: normal appearance. Absent: scleral icterus, conjunctival injection, periorbital swelling ENT exam: Present: mucous membranes dry Neck exam: Absent: tenderness, meningismus Respiratory exam: Present: normal lung sounds bilaterally. Absent: respiratory distress, accessory muscle use Cardiovascular Exam: Present: bradycardia GI/Abdominal exam: Present: soft, tenderness (Diffuse). Absent: guarding, r ebound, rigid Extremities exam: Present: full ROM, normal capillary refill. Absent: pedal edema Back exam: Present: full ROM. Absent: tenderness, CVA tenderness (R), CVA tenderness (L), paraspinal tenderness, vertebral tenderness, rash noted Neurological exam: Present: alert, oriented X3 Psychiatric exam: Present: normal affect, normal mood Skin exam: Present: warm, dry, normal color. Absent: cyanosis, diaphoretic, petechiae, pallor Course Vital Signs 04/01/23 04/01/23 04/01/23 10:23 11:34 13:43 Temperature 97.5 F L 98 F Pulse Rate 52 L 54 L 54 L Respiratory 16 19 20 Rate Blood Pressure 111/77 148/88 140/80 O2 Sat by Pulse 99 97 100 Oximetry Medical Decision Making - Medical Decision Making EKG interpreted by me shows sinus bradycardia with ventricular rate of 47, MI interval 0.148, QRS 0.109, QTC 0.396, left axis deviation, no significant change compared to old 02/15/23. Patient was admitted to the hospital 03/11/2023 with simple similar symptoms of nausea vomiting diarrhea and chest pain. Urine drug screen positive for benzodiazepines and marijuana. Influenza, virus swabs were negative. Chest x- ray was negative. There was concern for hyperthyroidism and she was given a referral to Dr. Mullins Today chest x-ray interpreted by me shows no evidence of focal consolidation, trachea midline and cardiac silhouette within normal size. Radiologist interpretation acute cardiopulmonary disease or process. CBC unremarkable, blood glucose level of 161. Total bili 2.1 down from 3.8 on 03/10/2023. TSH 0.941 Influenza coronavirus negative Abdomen soft and nontender. Patient has had no vomiting or diarrhea in the emergency room. Vital signs are stable and she is afebrile. Patient regarding a narcotic for her pain relief, specifically Dilaudid which she states has been given to her in the emergency room in the past for this amara n. She was given an agreeable to a [place]. I did explain narcotic pain medications are not recommended treatment for fibromyalgia pain. Patient was directed to contact her primary care doctor today to discuss continuation of care. Case discussed with Dr. Elias Was pt. sent in by a medical professional or institution (, PA, AMMUNITION ASSEMBLY II LABORER, urgent care, hospital, or custodial...) When possible be specific @ -No Did you speak to anyone other than the patient for history (EMS, parent, family, police, friend...)? What history was obtained from this source @ -No Did you review nursing and triage notes (agree or disagree)? Why? @ -I reviewed and agree with nursing and triage notes Were old charts reviewed (outside hosp., previous admission, EMS record, old EKG , old radiological studies, urgent care reports/EKG's, custodial records)? Report findings @ -Previous hospital admission notes and labs for 03/11/23 as above Differential Diagnosis (chest pain, altered mental status, abdominal pain women, abdominal pain men, vaginal bleeding, weakness, fever, dyspnea, syncope, headache, dizziness, GI bleed, back pain, seizure, CVA, palpatations, mental health, musculoskeletal)? @ -Differential Abdominal Pain Women: Appendicitis, Cholecystitis, diverticulosis, ischemic bowel, pancreatitis, hepatitis, UTI, gastroenteritis, AAA, incarcerated hernia, bowel obstruction, constipation, inflammatory bowel, hepatitis, peptic ulcer disease, splenic infarction, perforated viscus, kidney stone, fibromyalgia, viral illness this is not meant to be an all-inclusive list EKG interpreted by me (3pts min.). @ -Yes as above X-rays interpreted by me (1pt min.). @ -Yes as above CT interpreted by me (1pt min.). @ -None done U/S interpreted by me (1pt. min.). @ -None done What testing was considered but not performed or refused? (CT, X-rays, U/S, labs)? Why? @ -None What meds were considered but not given or refused? Why? @ -None Did you discuss the management of the patient with other professionals (professionals i.e. , PA, AMMUNITION ASSEMBLY II LABORER, lab, RT, psych nurse, social research assistant, barbering teacher, teacher, search and rescue officer, adult protective caseworker)? Give summary @ -No Was smoking cessation discussed for >3mins.? @ -No Was critical care preformed (if so, how long)? @ -No Were there social determinants of health that impacted care today? How? (Homelessness, low income, unemployed, alcoholism, drug addiction, transportation, low edu. Level, literacy, decrease access to med. care, assisted, rehab)? @ -No Was there de-escalation of care discussed even if they declined (Discuss DNR or withdrawal of care, Hospice)? DNR status @ -No What co-morbidities impacted this encounter? (DM, HTN, Smoking, COPD, CAD, Cancer, CVA, ARF, Chemo, Hep., AIDS, mental health diagnosis, sleep apnea, morbid obesity)? @ -Fibromyalgia, thrombocytopenia Was patient admitted / discharged? Hospital course, mention meds given and route, prescriptions, significant lab abnormalities, going to OR and other pertinent info. @ -Discharged Undiagnosed new problem with uncertain prognosis? @ -No Drug Therapy requiring intensive monitoring for toxicity (Heparin, Nitro, Insulin, Cardizem)? @ -No Were any procedures done? @ -No Diagnosis/symptom? @ -Musculoskeletal pain, acute nausea vomiting, fibromyalgia Acute, or Chronic, or Acute on Chronic? @ -Acute Uncomplicated (without systemic symptoms) or Complicated (systemic symptoms)? @ -Uncomplicated Side effects of treatment? @ -No Exacerbation, Progression, or Severe Exacerbation? @ -No Poses a threat to life or bodily function? How? (Chest pain, [place], [place], pneumonia, PE, COPD, DKA, ARF, appy, cholecystitis, CVA, Diverticulitis, Homicidal, Suicidal, threat to staff... and all critical care pts) @ -No - Lab Data Result diagrams: 04/01/23 11:37 04/01/23 11:05 Lab Results 04/01/23 04/01/23 04/01/23 Range/Units 11:05 11:05 11:37 WBC 9.7 (3.8-10.6) k/uL RBC 4.95 (3.80-5.40) m/uL Hgb 14.3 (11.4-16.0) gm/dL Hct 43.1 (34.0-46.0) % MCV 87.1 (80.0-100.0) fL MCH 28.9 (25.0-35.0) pg MCHC 33.2 (31.0-37.0) g/dL RDW 12.9 (11.5-15.5) % Plt Count 122 L (150-450) k/uL MPV 11.2 Neutrophils % 91 % Lymphocytes % 5 % Monocytes % 3 % Eosinophils % 0 % Basophils % 0 % Neutrophils # 8.9 H (1.3-7.7) k/uL Lymphocytes # 0.5 L (1.0-4.8) k/uL Monocytes # 0.3 (0-1.0) k/uL Eosinophils # 0.0 (0-0.7) k/uL Basophils # 0.0 (0-0.2) k/uL Manual Slide Review Performed RBC Morphology Normal Sodium 136 L (137-145) mmol/L Potassium 4.4 (3.5-5.1) mmol/L Chloride 103 (98-107) mmol/L Carbon Dioxide 21 L (22-30) mmol/L Anion Gap 12 mmol/L BUN 16 (7-17) mg/dL Creatinine 0.50 L (0.52-1.04) mg/dL Est GFR (CKD-EPI)AfAm >90 (>60 ml/min/1.73 sqM) Est GFR (CKD-EPI)NonAf >90 (>60 ml/min/1.73 sqM) Glucose 161 H (74-99) mg/dL Calcium 9.4 (8.4-10.2) mg/dL Total Bilirubin 2.1 H (0.2-1.3) mg/dL AST 21 (14-36) U/L ALT 17 (4-34) U/L Alkaline Phosphatase 100 (38-126) U/L Total Protein 7.7 (6.3-8.2) g/dL Albumin 4.6 (3.5-5.0) g/dL Amylase 43 (30-110) U/L Lipase 65 (23-300) U/L TSH 0.941 (0.465-4.680) mIU/L Influenza Type A (PCR) Not Detected (Not Detectd) Influenza Type B (PCR) Not Detected (Not Detectd) RSV (PCR) Not Detected (Not Detectd) SARS-CoV-2 (PCR) Not Detected (Not Detectd) - EKG Data -: EKG Interpreted by Me (EKG shows sinus bradycardia with ventricular rate of 47, MI interval 0.148,) EKG Comments: EKG interpreted by me shows sinus bradycardia. Ventricular rate 47, MI interval 0.148, QRS 0.109, QTC 0.396 Disposition Clinical Impression: Fibromyalgia, Hyperglycemia Disposition: HOME SELF-CARE Condition: Good Instructions (If sedation given, give patient instructions): Fibromyalgia (ED), Acute Nausea and Vomiting (ED) Additional Instructions: Tylenol and/or Motrin as needed for pain and discomfort. Increase your fluid intake. Contact your primary care doctor today for follow-up appointment for continuation of care. Is patient prescribed a controlled substance at d/c from ED?: No Referrals: Renée Leonardo MD [Primary Care Provider] - 1-2 days Time of Disposition: 13:16
[2023-04-01] MEDS ORDERED: ONDANSETRON 4 MG/2 ML VIAL IVP STA (11:27)
[2023-04-01 11:35] VITALS: PULSE 54
[2023-04-01 11:39] LABS: ALT 17 U/L (4-34); AST 21 U/L (14-36); African American GFR (CKD) >90 (>60 ml/min/1.73 sqM); Albumin 4.6 g/dL (3.5-5.0); Alkaline Phosphatase 100 U/L (38-126); Amylase 43 U/L (30-110); Anion Gap 12 mmol/L; Blood Urea Nitrogen 16 mg/dL (7-17); Calcium 9.4 mg/dL (8.4-10.2); Carbon Dioxide 21 mmol/L (22-30); Chloride 103 mmol/L (98-107); Glucose 161 mg/dL (74-99); Lipase 65 U/L (23-300); Non-African American GFR(CKD) >90 (>60 ml/min/1.73 sqM); Potassium 4.4 mmol/L (3.5-5.1); Sodium 136 mmol/L (137-145); Total Bilirubin 2.1 mg/dL (0.2-1.3); Total Protein 7.7 g/dL (6.3-8.2)
[2023-04-01] MEDS ORDERED: LORazepam 2 MG/ML INJ IV STA (11:40)
--- NOTE | 2023-04-01 12:12 | XR ---
EXAMINATION TYPE: XR chest 2V DATE OF EXAM: 04/01/2023 12:08 PM COMPARISON: Chest radiographs from 03/10/2023. TECHNIQUE: XR chest 2V Frontal and lateral views of the chest. CLINICAL INDICATION:Female, 32 years old with history of pain; FINDINGS: Lungs/Pleura: There is no evidence of pleural effusion, focal consolidation, or pneumothorax. Pulmonary vascularity: Unremarkable. Heart/mediastinum: Cardiomediastinal silhouette is unremarkable. Musculoskeletal: No acute osseous pathology. IMPRESSION: No acute cardiopulmonary disease/process.
[2023-04-01 12:25] LABS: Basophils % (A) 0 %; Eosinophils % (A) 0 %; HCT 43.1 % (34.0-46.0); HGB 14.3 gm/dL (11.4-16.0); Lymphocytes # (A) 0.5 k/uL (1.0-4.8); Lymphocytes % (A) 5 %; MCH 28.9 pg (25.0-35.0); MCHC 33.2 g/dL (31.0-37.0); MCV 87.1 fL (80.0-100.0); Mean Platelet Volume 11.2; Monocytes # (A) 0.3 k/uL (0-1.0); Monocytes % (A) 3 %; Neutrophils # (A) 8.9 k/uL (1.3-7.7); Neutrophils % (A) 91 %; Platelet Count 122 k/uL (150-450); RBC 4.95 m/uL (3.80-5.40); RDW 12.9 % (11.5-15.5); WBC 9.7 k/uL (3.8-10.6)
[2023-04-01 13:13] LABS: RBC Morphology Normal
[2023-04-01] MEDS ORDERED: HYDROcodone/APAP 5-325MG 1 EACH TAB PO STA (13:14)
[2023-04-01 13:45] VITALS: BP 140/80; RESP 20; TEMP 98
== END 2023-04-01 14:06 | disposition home or self-care (01) ==
LOC: EC 10:15
DX: R73.9 Hyperglycemia, unspecified (principal); M79.7 Fibromyalgia; M19.90 Unspecified osteoarthritis, unspecified site; Z87.891 Personal history of nicotine dependence; F12.90 Cannabis use, unspecified, uncomplicated; Z79.899 Other long term (current) drug therapy; Z20.822 Contact with and (suspected) exposure to COVID-19
CPT/HCPCS: 36415; 93005; 80053; 84443; 82150; 83690; 85025; 87636; 71046; 99284; 96374; 96375 ×3; 96361; J2060; J1200; J2405; J1885

== ENCOUNTER 2023-04-01 14:25 | Emergency (ER) | payer OTHER ==
--- NOTE | 2023-04-01 14:52 | ED ---
General Adult HPI - General Chief complaint: Nausea/Vomiting/Diarrhea Stated complaint: returning- Time Seen by Provider: 04/01/23 14:50 Source: patient Mode of arrival: wheelchair Limitations: no limitations - History of Present Illness Initial comments: Patient discharged approximately an hour ago and requesting to be seen again for her persistent nausea and body pains that started today. -: days(s) - Related Data Home Medications Medication Instructions Recorded Confirmed DULoxetine HCL [Cymbalta] 30 mg PO BID 04/01/23 04/01/23 hydrOXYzine HCL [Atarax] 50 mg PO BID 04/01/23 04/01/23 Previous Rx's Medication Instructions Recorded Ondansetron Odt [Zofran Odt] 4 mg PO Q8HR PRN #10 tab 04/01/23 Allergies Allergy/AdvReac Type Severity Reaction Status Date / Time No Known Allergies Allergy Verified 04/01/23 14:34 Review of Systems ROS Statement: Those systems with pertinent positive or pertinent negative responses have been documented in the HPI. ROS Other: All systems not noted in ROS Statement are negative. Past Medical History Past Medical History: Fibromyalgia, Osteoarthritis (OA), Thyroid Disorder Additional Past Medical History / Comment(s): [place] Syndrome; thrombocytopenia History of Any Multi-Drug Resistant Organisms: None Reported Past Surgical History: Appendectomy, Section, Cholecystectomy, Orthopedic Surgery Additional Past Surgical History / Comment(s): Right knee surgery. Past Anesthesia/Blood Transfusion Reactions: No Reported Reaction Past Psychological History: No Psychological Hx Reported Smoking Status: Former smoker Past Alcohol Use History: Occasional Past Drug Use History: Marijuana - Past Family History Mother Family Medical History: No Reported History General Exam Limitations: no limitations General appearance: alert, in no apparent distress Head exam: Present: atraumatic, normocephalic Eye exam: Present: normal appearance. Absent: scleral icterus, conjunctival injection, periorbital swelling, periorbital tenderness ENT exam: Present: mucous membranes moist Neck exam: Present: full ROM. Absent: meningismus Respiratory exam: Absent: respiratory distress, accessory muscle use Cardiovascular Exam: Present: bradycardia GI/Abdominal exam: Present: soft. Absent: distended, guarding, rebound, rigid Neurological exam: Present: alert, oriented X3 Psychiatric exam: Present: normal affect, normal mood Skin exam: Present: warm, dry, normal color Course Vital Signs 04/01/23 04/01/23 14:32 15:30 Temperature 97.3 F L 97.9 F Pulse Rate 56 L 77 Respiratory 16 18 Rate Blood Pressure 164/81 143/83 O2 Sat by Pulse 100 99 Oximetry Medical Decision Making - Medical Decision Making Patient was seen by myself this morning labs were unremarkable. She's had no vomiting or diarrhea in the emergency room. Vital signs are stable. She was requesting Dilaudid for her generalized pain which she states has had in the past for her pain. I did explain to her that narcotics are not used for fibromyalgia pain. Due to her persistence, she was agreeable to a [place] prior to discharge. She was then directed to follow up with her primary care doctor. She returned for persistent nausea and generalized pain and was given a dose of Reglan and a prescription for Zofran. I do believe this may be fibromyalgia causing her pain and discomfort. She was directed to return with any new or concerning symptoms including fever, or persistent nausea and vomiting otherwise follow-up with her primary care doctor this week. Case discussed with Dr. Britton Was pt. sent in by a medical professional or institution (, PA, PHARMACY TEACHER, urgent care, hospital, or [place] health [place] facility...) When possible be specific @ -No Did you speak to anyone other than the patient for history (EMS, parent, family, police, friend...)? What history was obtained from this source @ -No Did you review nursing and triage notes (agree or disagree)? Why? @ -I reviewed and agree with nursing and triage notes Were old charts reviewed (outside hosp., previous admission, EMS record, old EKG, old radiological studies, urgent care reports/EKG's, [place] health [place] facility records)? Report findings @ -Previoius labs 03/11/23 and disposition from admission notes Differential Diagnosis (chest pain, altered mental status, abdominal pain women, abdominal pain men, vaginal bleeding, weakness, fever, dyspnea, syncope, headache, dizziness, GI bleed, back pain, seizure, CVA, palpatations, mental health, musculoskeletal)? @ -Fibromyalgia, acute nausea and vomiting, viral illness, gastroenteritis, hypothyroidism EKG interpreted by me (3pts min.). @ -n/a X-rays interpreted by me (1pt min.). @ -None done CT interpreted by me (1pt min.). @ -None done U/S interpreted by me (1pt. min.). @ -None done What testing was considered but not performed or refused? (CT, X-rays, U/S, labs)? Why? @ -None What meds were considered but not given or refused? Why? @ -None Did you discuss the management of the patient with other professionals (professionals i.e. DrAlin, PA, PHARMACY TEACHER, lab, RT, psych nurse, social work instructor, podiatric foot and ankle specialist, teacher, juvenile probation officer, director case management)? Give summary @ -No Was smoking cessation discussed for >3mins.? @ -No Was critical care preformed (if so, how long)? @ -No Were there social determinants of health that impacted care today? How? (Home lessness, low income, unemployed, alcoholism, drug addiction, transportation, low edu. Level, literacy, decrease access to med. care, usp, rehab)? @ -No Was there de-escalation of care discussed even if they declined (Discuss DNR or withdrawal of care, Hospice)? DNR status @ -No What co-morbidities impacted this encounter? (DM, HTN, Smoking, COPD, CAD, Cancer, CVA, ARF, Chemo, Hep., AIDS, mental health diagnosis, sleep apnea, morbid obesity)? @ -Fibromyalgia, thrombocytopenia, Gilbert syndrome Was patient admitted / discharged? Hospital course, mention meds given and route, prescriptions, significant lab abnormalities, going to OR and other pertinent info. @ -Discharged Undiagnosed new problem with uncertain prognosis? @ -No Drug Therapy requiring intensive monitoring for toxicity (Heparin, Nitro, Insulin, Cardizem)? @ -No Were any procedures done? @ -No Diagnosis/symptom? @ -Acute nausea vomiting, general chest pain, fibromyalgia Acute, or Chronic, or Acute on Chronic? @ -Acute on chronic Uncomplicated (without systemic symptoms) or Complicated (systemic symptoms)? @ -default Side effects of treatment? @ -No Exacerbation, Progression, or Severe Exacerbation? @ -No Poses a threat to life or bodily function? How? (Chest pain, [place], [place], pneumonia, PE, COPD, DKA, ARF, appy, cholecystitis, CVA, Diverticulitis, Homicidal, Suici mary, threat to staff... and all critical care pts) @ -No Disposition Clinical Impression: Generalized pain, Fibromyalgia, Nausea & vomiting Disposition: HOME SELF-CARE Condition: Good Instructions (If sedation given, give patient instructions): Fibromyalgia (ED), Pain Management (ED) Additional Instructions: Please follow-up with your primary care doctor this week as directed. You can take Tylenol and or Motrin as needed for pain. You can use [id number] topical medications. Prescriptions: Ondansetron Odt [Zofran Odt] 4 mg PO Q8HR PRN #10 tab PRN Reason: Nausea Is patient prescribed a controlled substance at d/c from ED?: No Referrals: Gilberto Fonseca MD [Primary Care Provider] - 1-2 days Time of Disposition: 14:52
[2023-04-01] MEDS ORDERED: METOCLOPRAMIDE 5 MG/ML 2 ML VIAL IM PRN (14:54)
[2023-04-01 16:33] VITALS: BP 143/83; PULSE 77; RESP 18; TEMP 97.9
== END 2023-04-01 15:30 | disposition home or self-care (01) ==
LOC: EC 14:25
DX: M79.7 Fibromyalgia (principal); R11.2 Nausea with vomiting, unspecified; R07.9 Chest pain, unspecified; F12.90 Cannabis use, unspecified, uncomplicated; Z87.891 Personal history of nicotine dependence
CPT/HCPCS: 99284; 96372; J2765